=== PATIENT | male | born 1955 | race African-American/Black ===

== ENCOUNTER 2017-06-13 18:48 | Emergency (ER) | payer BC ==
[~2017-06-13 18:48] MED LIST: ISOVUE-370 76%-LOCM 1 ML ONE; Iopamidol 370 76% 50 ML VIAL FS ONE
[2017-06-13] MEDS ORDERED: Benzocaine 20% Spray 60 ML CAN ONE (19:31)
[2017-06-13 20:09] LABS: #Basophils 0.1 thou/uL (0.0-0.2); #Eosinphils 0.2 thou/uL (0.0-0.7); #Lymphocytes 1.4 thou/uL (1.20-3.40); #Monocytes 0.4 thou/uL (0.11-0.59); %Basophils 1.1 % (0.0-1.0); %Eosinophils 4.9 % (0.0-10.0); %Lymphocytes 26.7 % (21.0-51.0); %Monocytes 8.6 % (0.0-10.0); Hematocrit 26.7 % (42.0-52.0); Mean Platelet Volume 6.9 fL (7.4-10.4); Red Blood Cell (RBC) Count 3.06 mill/uL (4.70-6.10); White Blood Cell (WBC) Count 5.1 thou/uL (4.8-10.8)
[2017-06-13 20:16] LABS: Prothrombin Time 15.1 SEC (12.0-14.7)
[2017-06-13 20:17] LABS: PTT 50.1 SEC (22.9-36.1)
[2017-06-13 20:30] LABS: ALT (SGPT) 11 U/L (8-55); AST (SGOT) 17 U/L (5-34); Alkaline Phosphatase 71 U/L (40-150); Anion Gap 9 mmol/L (10-20); BUN (Urea Nitrogen) 16 mg/dL (8.4-25.7); Bilirubin, Total 0.6 mg/dL (0.2-1.2); Calc. Creatinine Clearance 0 mL/min (70-130); Calcium 8.9 mg/dL (7.8-10.44); Carbon Dioxide 27 mmol/L (23-31); Chloride 103 mmol/L (98-107); Estimated GFR-MDRD 67; Globulin 2.8 g/dL (2.4-3.5); Lipase 41 U/L (8-78); Protein, Total 6.7 g/dL (5.8-8.1)
--- NOTE | 2017-06-13 22:48 | CT ---
CT OF THE ABDOMEN AND PELVIS 06/13/17 PROVIDED CLINICAL HISTORY: Abdominal pain. FINDINGS: Comparison is made with the CT examination dated 10/22/16. The visualized lung bases are free of significant opacity. There has been interval development of free intraperitoneal fluid. There are multiple peritoneal base d soft tissue masses now present throughout the upper abdomen. These most conspicuously involve the r ight pericolic gutter. The liver, spleen, pancreas, kidneys, and adrenal glands demonstrate an unchanged CT appearance. There is no evidence for bowel obstruction. There are several mildly enlarged epicardial lymph nodes which appear new as compared to the prior st udy. The osseous structures demonstrate no concerning osteoblastic or osteolytic lesions. IMPRESSION: Interval development of ascites and multiple peritoneal based soft tissue masses compatible with alexander ges of peritoneal carcinomatosis. POS: [facility]
== END 2017-06-14 00:55 | disposition home or self-care (01) ==
LOC: ERS 18:48
DX: R18.8 Other ascites (principal); Z87.891 Personal history of nicotine dependence
CPT/HCPCS: 74177; 80053; 82274; 83690; 85025; 85610; 85730; 86850; 86900; 86901

== ENCOUNTER 2017-06-25 18:42 | Inpatient (IN) | payer BC ==
[~2017-06-25 18:42] MED LIST changes: -Iopamidol 370 76% 50 ML VIAL FS ONE
--- NOTE | 2017-06-25 21:57 | RAD ---
EXAM: ONE VIEW ABDOMEN 06/25/17 HISTORY: Nasogastric tube placement. COMPARISON: 06/25/17 at 3:33 p.m. FINDINGS: One view abdomen demonstrates a nasogastric tube with the distal tip in the left upper quadrant. Air fluid level in the stomach is noted. Air filled loops of small bowel are identified. IMPRESSION: Nasogastric tube as above. POS: [facility]
[2017-06-25] MEDS ORDERED: Ondansetron ODT 4 MG TAB SL PRN (23:06)
[2017-06-25] MEDS ORDERED: Ondansetron HCl/PF 4 MG/2 ML Vial IVP PRN ×2 (23:06→23:23)
--- NOTE | 2017-06-25 23:11 | CT ---
EXAM ABDOMEN CT WITH CONTRAST PELVIC CT WITH CONTRAST 06/25/17 HISTORY: Small bowel obstruction. Patient has a history of metastatic cancer. COMPARISON: 06/23/17 TECHNIQUE: Abdomen and pelvic CT are performed with IV contrast. Enteric contrast was not administered. Coronal reformatted images are submitted for interpretation. FINDINGS: ABDOMEN CT: Chronic changes in the lung bases. Heart size is normal. No pericardial effusion. The descending thor acic aorta and abdominal aorta have a normal caliber. No periaortic fat stranding. Intra and extrahepatic portal vein is patent. Symmetric attenuation of the psoas muscles. Stable indeterminate hypodensities near the hepatic dome. Spleen, pancreas and adrenal glands are unr emarkable. Redemonstration of a left renal cyst. Symmetric enhancement of the kidneys. Bilaterally, n o obstructive uropathy. No gastrohepatic, retrocrural or periportal lymphadenopathy. There is worsening intra-abdominal ascites, predominantly in the left upper quadrant and perisplenic in location. Redemonstration of multiple peritoneal masses predominantly in the left hemiabdomen, wor risome for peritoneal seeding. There are multiple masses noted throughout the abdominal mesentery. Th ere appear to be new mesenteric masses in the left hemiabdomen. Limited evaluation of the alimentary canal due to the absence of oral contrast. Multiple fluid filled mildly distended small bowel loops are identified. The majority of the colon appears to have been grimaldo rgically removed. There is anatomic suture chain in the right lower quadrant. As stated above, there are multiple fluid filled loops of small bowel. The transition segment appears to be in the region of the anastomotic suture chain. Early/partial obstructive process is favored. Varicosities, nonspecific are noted just inferior to the head of the pancreas. Significance of these varicosities is uncertain. PELVIC CT: There is free fluid in the pelvis. No mass, lymphadenopathy or free air. The urinary bladder is unremarkable. Areas of peritoneal seeding are noted in the midline of the pelv is. IMPRESSION: 1. Interval increased ascites. 2. Interval increased peritoneal seeding in the abdomen mesentery. Seeding due to mesenteric met astases. 3. Early/partial obstructive process. The transition segment is difficult to appreciate but is p resumed to be in the right hemiabdomen at the level of the suture/surgical anastomosis. POS: [facility]
[2017-06-25] MEDS ORDERED: hydrALAZINE 20 MG/ML VIAL SLOW IVP PRN (23:23)
[2017-06-25] MEDS ORDERED: Dextrose 5% in Water 1,000 ML IV PRN (23:23)
[2017-06-25] MEDS ORDERED: Lorazepam 2 MG/ML VIAL SLOW IVP PRN (23:23)
[2017-06-25] MEDS ORDERED: HumaLOG 300 UNITS/3 ML VIAL SC PRN ×2 (23:23)
[2017-06-25] MEDS ORDERED: Acetaminophen 650 MG Suppository PR PRN (23:23)
[2017-06-25] MEDS ORDERED: Dextrose 50% Abboject 50 ML SYRINGE SLOW IVP PRN (23:23)
[2017-06-26] MEDS: D5 0.9% NS w/ 20 mEq KCl 1,000 ML IV SCH ×3 (00:26→18:50)
[2017-06-26] MEDS: Sodium Chloride 0.9% 1,000 ML IV SCH ×2 (00:33→05:46)
--- NOTE | 2017-06-26 01:05 | HP ---
PRIMARY CARE PHYSICIAN: Sadia Olivares MD CHIEF COMPLAINT: Abdominal distention and vomiting. HISTORY OF PRESENT ILLNESS: Mr. Guerra is a pleasant 61-year-old gentleman who has a history of di abetes mellitus as well as colon cancer, status post partial colectomy. The patient was in his usual state of health he says until around April when he felt like something tore, loosen his abdomen, then after that he started having some bloating. He went in to see his primary care physician who se nt him to have a CT scan of the abdomen. He says he reports that the CT scan showed some obstruction , however, it is unclear what happened after this, he says he tried to wait it out and get through holidays, it is unclear if he was recommended to be hospitalized. He says he was trying to wait it out, but his symptoms got progressively worse and he began having more abdominal distention. He got to the point where he vomited this morning. His abdomen was extremely tight and he was having diffi culty breathing as a result of this and as a result, he came to the ER and again was found to have a small-bowel obstruction. He was seen at the ER in [place] and then transferred to our facility for further evaluation. The patient says his last bowel movement was yesterday, he says it was small er than usual. The stool was formed, but there only like a little bit. He says he denies having any blood in the stool, but earlier, his stool was dark. He vomited once, but there was no hematemesis. He has had some chills, but no fever. REVIEW OF SYSTEMS: Constitutional: He has had subjective chills, but no fever, no night sweats, no weight loss. HEENT: No headaches, no dizziness, no visual changes, no sore throat, rhinorrhea, neck pain, no adenopathy. Pulmonary: No hemoptysis, no cough, no wheezing. Cardiovascular: He denies any chest pain, no shortness of breath, no PND, no orthopnea. Gastrointestinal: As the history of p resent illness. Genitourinary: No urinary frequency, hematuria, no hesitancy. Neurologic: No foca l weakness, numbness, no seizures. Psychiatric: No symptoms of anxiety or depression. Skin and Int egument: No skin changes. No rash. PAST MEDICAL HISTORY: Significant for diabetes mellitus type 2, gastroesophageal reflux disease, chr onic kidney disease, colon cancer, pulmonary embolism. PAST SURGICAL HISTORY: He has had an appendectomy in 2010, as well as a partial colectomy in 02/2016 . ALLERGIES: XARELTO which causes a rash. SOCIAL HISTORY: He is . He is a nonsmoker. He quit smoking about 10 years ago. Denies any alcohol use. CODE STATUS: FULL CODE. FAMILY HISTORY: No history of any inheritable diseases. CURRENT MEDICATIONS: Include Eliquis 5 mg twice a day. PHYSICAL EXAMINATION: GENERAL: He is alert and oriented. He appears to be in no acute distress. VITAL SIGNS: His blood pressure was 150/97, heart rate 109, respiratory rate of 20, temperature is 9 8.2. HEENT: His pupils are equal, round, and reactive. Extraocular muscles are intact. His sclerae are anicteric. Throat, no erythema, no exudates. NECK: No adenopathy, no bruits. LUNGS: Clear. There is no wheezing, no rales. CARDIOVASCULAR: He has a normal S1, S2. There is no S3 or S4. No murmurs, clicks, or rubs. ABDOMEN: Distended, slightly tense. He has some diffuse tenderness. There is no rebound, no guardi ng. EXTREMITIES: There is no lower extremity edema. NEUROLOGICALLY: The exam is nonfocal. LABORATORY FINDINGS: White blood cell count is 9.2, hemoglobin is 10.7, hematocrit is 35.2, platelet count is 355. Sodium 138, potassium 4.3, chloride is 101, CO2 is 21, BUN is 17, creatinine 1.4, glu cose is 163. ASSESSMENT AND PLAN: 1. This is a pleasant 61-year-old gentleman who presents to the emergency room with abdominal disten tion and vomiting. It is reported that the CT scan was consistent with a small-bowel obstruction. I am still awaiting the final reading on that. He is being admitted. General Surgery has already bee n consulted. He will be left n.p.o. and he has an NG placed to low intermittent suction. Given his history of pulmonary embolus, we will place him on Lovenox full dose in lieu of the Eliquis. 2. For diabetes mellitus, the patient says that ever since he started chemotherapy, he no longer req uires medication for diabetes. Therefore, we will place him on sliding scale insulin only and we adin l also place him on maintenance IV fluids.
[2017-06-26 01:08] VITALS: BMI 28.8
[2017-06-26 06:41] LABS: Anion Gap 14 mmol/L (10-20); BUN (Urea Nitrogen) 18 mg/dL (8.4-25.7); Calc. Creatinine Clearance 69 mL/min (70-130); Calcium 9.4 mg/dL (7.8-10.44); Carbon Dioxide 27 mmol/L (23-31); Chloride 105 mmol/L (98-107); Estimated GFR-MDRD 55; Glucose 133 mg/dL (80-115); Potassium 4.6 mmol/L (3.5-5.1); Sodium 141 mmol/L (136-145)
[2017-06-26 07:59] LABS: Band 11 % (5-11); Eosinophils 6 % (0-10); Hemoglobin 9.3 g/dL (14.0-18.0); Hypochromia SLIGHT = 6-15 cells (100X) (0-5/hpf); Lymphocytes 16 % (21-51); MDiff Complete? YES; Mean Corpuscular HGB CONC 31.4 g/dL (32.0-36.0); Mean Corpuscular Hemoglobin 26.8 pg (27.0-31.0); Mean Corpuscular Volume 85.1 fl (80.0-94.0); Mean Platelet Volume 7.1 fL (7.4-10.4); Monocytes 10 % (0-10); Neutrophil 57 % (42-75); PLT Morphology Comment Appears Adequate; Platelet Count 316 thou/uL (130-400); Polychromasia MODERATE = 3-4 cells (100X) (0-2/hpf); RBC Distribution Width 16.6 % (11.5-14.5); Red Blood Cell (RBC) Count 3.49 mill/uL (4.70-6.10)
[2017-06-26] MEDS ORDERED: Enoxaparin Sodium 60 MG/0.6 ML SYRINGE SC SCH (09:00)
[2017-06-26] MEDS: Famotidine/PF 20 mg/2ml Vial SLOW IVP SCH ×2 (09:48→21:51)
[2017-06-26] MEDS: Enoxaparin Sodium 100 MG/ML SYRINGE SC SCH ×2 (09:48→21:51)
[2017-06-26] MEDS ORDERED: MD-Gastroview 120 ML BOT ONE (12:00)
--- NOTE | 2017-06-26 15:57 | CON ---
DATE OF CONSULTATION: 06/26/2017 REQUESTING PHYSICIAN: Jeremy Bishop M.D. ATTENDING SURGEON: Dr. Valle. REASON FOR CONSULTATION: Suspected small-bowel obstruction. HISTORY OF PRESENT ILLNESS: The patient is a 61-year-old -Spanish man with a prior history o f diabetes and colon cancer. The patient has undergone a laparoscopic right colectomy and then was f ound to have cancer metastasized to the mesentery of the small bowel which he underwent laparoscopic biopsy of omental mass in April [address] Benitez. The patient since then has had intermittent episodes of nausea and vomiting which usually were very self-limiting though this time the patient no coco that in April he started to have more left-sided lower abdominal pain that had gradually worse janes and became more frequent. The patient presented to the Emergency Department in [place] complain ing of nausea, vomiting, and severe abdominal pain. The patient underwent evaluation and examination and the CTs showed: 1. Interval increase in ascites. 2. Interval increased peritoneal seeding in the abdomen mesentery. Seeding due to mesenteric metast asis. 3. Early/partial obstructive process. The transition segment is difficult to appreciate, but is pre sumed to be in the right mak-abdomen at the level of the suture/surgical anastomosis. The patient w as subsequently transferred to our facility for surgical evaluation and admission by our medicine edmundo celestin. The patient has had an NG tube placed in the emergency department and states that this relieved s ignificant amount of his nausea and his pain. The patient states his last bowel movement was yesterd ay and his last episode of flatus was also yesterday. The patient had emesis yesterday, but has sinc e resolved. Again, the NG tube appears to have helped him significantly. Though, today he notes sarah t he still has not had any flatus. The patient denies documented fever, but admits to episodes of ch ills, denies weight loss. The patient also denies hematemesis, dark tarry stools, or blood per rectu m. CURRENT MEDICATIONS: Eliquis 5 mg twice a day. ALLERGIES: XARELTO, which he reports causes a rash. PAST SURGICAL HISTORY: Appendectomy, laparoscopic right hemicolectomy, laparoscopic biopsy of omenta l mass, and tunneled central line subcutaneous port/MediPort placement. PAST MEDICAL HISTORY: Significant for type 2 diabetes, gastroesophageal reflux disease, chronic kidn ey disease, colon cancer, and history of pulmonary embolism. REVIEW OF SYSTEMS: Ten point review of systems was negative, unless otherwise stated. SOCIAL HISTORY: The patient is . Quit smoking 10-15 years ago. Denies drug and alcohol use. 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 PHYSICAL EXAMINATION: VITAL SIGNS: Temperature is 98.3, heart rate 105, blood pressure 125/83, respirations 16. HEENT: Unremarkable. NECK: Nontender, no lymph nodes were noted. Trachea is midline. No JVD. CHEST: Clear to auscultation bilaterally with good inspiratory and expiratory effort. ABDOMEN: Soft with mild distention. No peritoneal signs. Bowel sounds are absent. Pelvis is stabl e. EXTREMITIES: Neurovascularly intact x4. No peripheral edema is noted. NEUROLOGIC: The patient is alert and oriented x3. Prince coma scale is 15. LABORATORY DATA: White blood cell count 4.1, hemoglobin 9.3, hematocrit 29.7, platelets 316. Sodium 141, potassium 4.6, chloride 105, CO2 of 27, BUN 18, creatinine 1.54, glucose 133. RADIOGRAPHIC REPORTS: CT of the abdomen and pelvis with IV contrast shows: 1. Interval increase in ascites. 2. Interval increase in peritoneal seeding in the abdomen mesentery. Seeding due to mesenteric meta stasis. 3. Early/partial obstructive process. The transition segment is difficult to appreciate, but is pre sumed to be in the right mak-abdomen at the level of the suture/surgical anastomosis. ASSESSMENT AND PLAN: 1. Possible small-bowel obstruction. We will discuss further evaluation of this with possible small bowel follow through due to the fact that the patient's CT scan was without enteric contrast. 2. Continue nasogastric tube with low intermittent wall suction. 3. IV hydration. 4. Pain control. 5. Medical management per the primary. This evaluation, examination, laboratory, and radiographic findings were discussed with Dr. Valle and he will evaluate the patient and decide on the final plan.
--- NOTE | 2017-06-26 17:48 | CON ---
DATE OF CONSULTATION: 06/26/2017 REASON FOR CONSULTATION: Colon cancer. HISTORY OF PRESENT ILLNESS: Mr. 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 He underwent 12 cycles of FOLFOX and was in remission. 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 He has been on anticoagulation since that time. He was last seen in our clinic on 04/2017 and was doing well. Over the last few days, he began to have abdominal distention and pain and presented to the emergency room for evaluation. A CT scan showed a possible obstruction. There was increased tense ascites. There was also some peritoneal seeding in the abdominal mesentery, which was concerning for metastasi s. Patient had an NG tube placed and was transferred to this facility for evaluation. Dr. Valle has seen the patient. He does complain of vomiting, significant burping. However, his last bowel movem ent was the day before yesterday. He states his abdomen has become increasingly distended over the p ast few weeks. He has noted weight gain of unknown amount. PAST MEDICAL HISTORY: 1. Stage IV adenocarcinoma of the cecum. 2. 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 3. Type 2 diabetes. 4. Chronic kidney disease. PAST SURGICAL HISTORY: 1. Appendectomy. 2. Colectomy. ALLERGIES: Xarelto. HOME MEDICATIONS: Eliquis 5 mg b.i.d. FAMILY HISTORY: Noncontributory. SOCIAL HISTORY: He is and has 3 children. Former smoker. No alcohol or illicit drug use. REVIEW OF SYSTEMS: CONSTITUTIONAL: Denies fever, chills, night sweats. Positive for recent weight gain. EYES: No blurred or double vision. ENT: No pain, hoarseness, sore throat, or dysphagia. CARDIOVASCULAR: No chest pain, palpitations, or syncope. RESPIRATORY: Positive for shortness of breath, no dyspnea on exertion. GASTROINTESTINAL: Positive for nausea, vomiting, abdominal pain, and distention. GENITOURINARY: No dysuria or hematuria. MUSCULOSKELETAL: No joint or back pain. SKIN: No rash or pruritus. HEMATOLOGIC: No petechia, no bleeding, bruising or clotting. NEUROLOGIC: Denies weakness, headache, numbness, tingling, or seizure activity. PSYCHIATRIC: No anxiety or depression. PHYSICAL EXAMINATION: VITAL SIGNS: Temperature is 96.1, pulse is 115, respiratory rate 16, BP is 120/84, he is 97% on room air. GENERAL: Well-developed, well-nourished male in no acute distress. HEENT: Normocephalic, atraumatic. Pupils equal and reactive to light. NECK: Supple. HEART: Regular rate and rhythm. He is tachycardic. LUNGS: Clear. ABDOMEN: Distended, nontender. EXTREMITIES: No clubbing, cyanosis, or edema. SKIN: No rash. HEMATOLOGIC: No petechia or purpura. NEUROLOGICAL: Nonfocal. PSYCHIATRIC: The patient is alert and oriented and appropriate. PERTINENT LABORATORY DATA AND X-RAYS: Current WBCs are 4.0, hemoglobin 9.3, hematocrit 29.7, platele t count 316,000. He has got 57% neutrophils, 11% bands, 16% lymphocytes. Sodium is 141, potassium 4 .6, chloride 105, CO2 is 27, BUN is 18, creatinine 1.54, calcium is 9.4. Radiology per HPI. IMPRESSION: 1. Stage IV adenocarcinoma of the cecum, now with peritoneal carcinomatosis. 2. Possible obstruction. 3. History of venous thrombosis on lifelong anticoagulation. DISCUSSION: Dr. Valle has seen the patient. The NG tube has been removed and the patient had a jabier l movement. He will follow up with Dr. Mujica in the outpatient setting to discuss possible treatm ent options. We will check a CEA. The patient can be discharged when stable from our perspective an d see us next week in the clinic. Thank you for the consult.
--- NOTE | 2017-06-26 21:09 | PDOC.PN ---
- Subjective Encounter Start Date: 06/26/17 Encounter Start Time: 13:00 Patient seen and examined. Abd pain improving. No BM. No overnight events - Objective Resuscitation Status: Resuscitation Status FULL:Full Resuscitation Vital Signs & Weight: Vital Signs (12 hours) Temp Pulse Resp BP Pulse Ox 06/26/17 19:41 98.5 F 96 18 118/81 96 06/26/17 16:19 96.1 F L 115 H 16 120/84 90 L 06/26/17 12:24 98.1 F 102 H 16 131/86 97 06/26/17 09:28 98.3 F 105 H 16 125/83 95 Weight Weight 218 lb 4.122 oz I&O: 06/25/17 06/26/17 06/27/17 06:59 06:59 06:59 Intake Total 700 1590 Output Total 1350 400 Balance -650 1190 Result Diagrams: 06/27/17 08:31 06/27/17 08:31 Additional Labs: Accuchecks 06/26/17 06/26/17 06/26/17 15:45 10:18 05:53 POC Glucose 126 H 136 H 129 H 06/26/17 00:53 POC Glucose 143 H Radiology Reviewed by me: Yes (CT abd - reviewed) Phys Exam - Physical Examination Constitutional: NAD NG tube + Respiratory: no wheezing, no rales, no rhonchi Symmetrical Cardiovascular: RRR, no rub no heaves/pulsations Gastrointestinal: soft, non-tender, positive bowel sounds Musculoskeletal: no edema Neurological: non-focal, moves all 4 limbs Psychiatric: A&O x 3 Dx/Plan - Plan DVT proph w/SCDs IMPRESSION: 1. SBO 2. h/o Colon Cancer 3. CKD 3 4. DM 2 5. GERD 6. h/p PE on Chronic anticoagulation PLAN: * Eliquis on hold - Pt on Lovenox * Await Gen surg input * Consult Oncology * AM labs * Cont IVF * Cont current meds as below Review of Systems - Review of Systems Respiratory: negative: Cough, Dry, Shortness of Breath, Hemoptysis, SOB with Excertion, Pleuritic Pain, Sputum, Wheezing Cardiovascular: negative: chest pain, palpitations, orthopnea, paroxysmal nocturnal dyspnea, edema, light headedness - Medications/Allergies Allergies/Adverse Reactions: Allergies Allergy/AdvReac Type Severity Reaction Status Date / Time hydroxyzine Allergy Verified 06/26/17 05:37 Medications: Current Medications Acetaminophen (Tylenol) 650 mg NV Q4H PRN PRN Reason: Headache/Fever or Pain Dextrose/Water (Dextrose 50%) 25 gm SLOW IVP PRN PRN PRN Reason: Hypoglycemia Enoxaparin Sodium (Lovenox) 100 mg SC 0900,2100 [facility] Last Admin: 06/26/17 09:48 Dose: 100 mg Famotidine (Pepcid) 20 mg SLOW IVP Q12HR [facility] Last Admin: 06/26/17 09:48 Dose: 20 mg Glucagon (Glucagon) 1 mg IM PRN PRN PRN Reason: Hypoglycemia Hydralazine HCl (Apresoline) 10 mg SLOW IVP Q4H PRN PRN Reason: Systolic BP > 180 Potassium Chloride/Dextrose/Sod Cl (D5 0.9% Ns W/ 20 Meq Kcl) 1,000 mls @ 100 mls/hr IV .Q10H [facility] Last Admin: 06/26/17 18:50 Dose: 1,000 mls Dextrose/Water (D5w) 1,000 mls @ 0 mls/hr IV .Q0M PRN; As Directed PRN Reason: Hypoglycemia Influenza Virus Vaccine (Fluzone Quad [id number] Syringe) 0.5 ml IM .ONCE ONE Stop: 06/27/17 09:01 Insulin Human Lispro (Humalog) 0 units SC .MILD SLIDING SCALE PRN PRN Reason: Mild Correctional Scale Insulin Human Lispro (Humalog) 0 units SC .BEDTIME SLIDING SC PRN PRN Reason: Bedtime Correctional Scale Lorazepam (Ativan) 0.5 mg SLOW IVP Q4H PRN PRN Reason: Anxiety/Agitation Ondansetron HCl (Zofran) 4 mg IVP Q6H PRN PRN Reason: Nausea/Vomiting Sodium Chloride (Flush - Normal Saline) 10 ml IVF Q12HR [facility] Last Admin: 06/26/17 19:56 Dose: Not Given Sodium Chloride (Flush - Normal Saline) 10 ml IVF PRN PRN PRN Reason: Saline Flush
--- NOTE | 2017-06-26 21:36 | RAD ---
EXAM: GASTROGRAFIN SMALL BOWEL 06/26/17 HISTORY: Evaluate for small bowel obstruction. COMPARISON: None. FINDINGS: Initial fourdrinier operator radiograph demonstrates air filled loops of nondistended small bowel. Gastrografin opacifies multiple normal caliber and slight prominent small bowel loops. On the three h our image, there is contrast opacifying the colon. No evidence of high grade obstruction. IMPRESSION: No evidence of high grade obstruction. POS: [facility]
--- NOTE | 2017-06-26 23:04 | PRG ---
DATE OF SERVICE: 06/26/2017 SUBJECTIVE: Julianne Guerra is a 61-year-old male, surgical consult for partial small-bowel obstruction. The patient had a bowel movement earlier today and was passing gas. His diet was advanced to clear liquid earlier this evening. Upon my evaluation, the patient states that he has had no further vomiting and tolerating water at this time. OBJECTIVE: VITAL SIGNS: Reviewed and stable. The patient is afebrile. GENERAL: Well-developed male, resting in bed in no acute distress. PULMONARY: Breathing nonlabored. GASTROINTESTINAL: Abdomen is soft, nontender. ASSESSMENT: As documented in consultation note. PLAN: Continue care as ordered, monitor diet tolerance. MTDD
[2017-06-27] MEDS: D5 0.9% NS w/ 20 mEq KCl 1,000 ML IV SCH (03:56)
[2017-06-27 08:40] LABS: #Eosinphils 0.1 thou/uL (0.0-0.7); #Lymphocytes 1.2 thou/uL (1.20-3.40); #Monocytes 0.5 thou/uL (0.11-0.59); #Neutrophils 3.4 thou/uL (1.40-6.50); %Basophils 0.4 % (0.0-1.0); %Eosinophils 2.5 % (0.0-10.0); %Lymphocytes 22.5 % (21.0-51.0); %Monocytes 9.1 % (0.0-10.0); %Neutrophils 65.5 % (42.0-75.0); Hemoglobin 9.2 g/dL (14.0-18.0); Mean Corpuscular Hemoglobin 26.5 pg (27.0-31.0); Mean Corpuscular Volume 85.7 fl (80.0-94.0); Mean Platelet Volume 6.4 fL (7.4-10.4); Platelet Count 256 thou/uL (130-400); RBC Distribution Width 16.7 % (11.5-14.5); Red Blood Cell (RBC) Count 3.46 mill/uL (4.70-6.10); White Blood Cell (WBC) Count 5.2 thou/uL (4.8-10.8)
[2017-06-27] MEDS ORDERED: Famotidine 40 MG/4 ML VIAL IVPB SCH (09:00)
[2017-06-27] MEDS ORDERED: FLU VACC QS2017-18 36 mo. & older 0.5 ML SYRINGE IM ONE (09:00)
[2017-06-27 09:02] LABS: ALT (SGPT) 8 U/L (8-55); AST (SGOT) 13 U/L (5-34); Albumin 3.8 g/dL (3.4-4.8); Alkaline Phosphatase 74 U/L (40-150); Anion Gap 12 mmol/L (10-20); BUN (Urea Nitrogen) 16 mg/dL (8.4-25.7); Bilirubin, Total 0.7 mg/dL (0.2-1.2); Calc. Creatinine Clearance 63 mL/min (70-130); Calcium 9.4 mg/dL (7.8-10.44); Carbon Dioxide 23 mmol/L (23-31); Chloride 108 mmol/L (98-107); Estimated GFR-MDRD 50; Globulin 3.6 g/dL (2.4-3.5); Glucose 130 mg/dL (80-115); Magnesium 2.5 mg/dL (1.6-2.6); Phosphorus 2.3 mg/dL (2.3-4.7); Potassium 4.1 mmol/L (3.5-5.1); Protein, Total 7.4 g/dL (5.8-8.1); Sodium 139 mmol/L (136-145)
[2017-06-27] MEDS: Famotidine/PF 20 mg/2ml Vial SLOW IVP SCH (09:40)
--- NOTE | 2017-06-27 12:07 | PRG ---
DATE OF SERVICE: 06/27/2017 The patient is a patient that we were seeing in consultation for a possible small-bowel obstruction. The patient yesterday reported having a bowel movement and passing gas. His small bowel follow thro ugh showed no evidence of high grade obstruction. Overnight, the patient reports having 4 more bowel movements. At this time, there is no surgical intervention required and we will sign off.
--- NOTE | 2017-06-27 14:49 | DIS ---
DATE OF DISCHARGE: 06/27/2017 DISCHARGE DISPOSITION: Home. FOLLOWUP: 1. Follow up with primary care physician, Dr. Olivares in 1 week. 2. Follow up with Oncology, Dr. Mujica next week. INPATIENT CONSULTANTS: General Surgery, Dr. Valle and Oncology, Dr. Mujica. BRIEF HOSPITAL COURSE: The patient is a 61-year-old male with diabetes mellitus type 2 and colon can cer, status post partial colectomy, who presented to the emergency room with abdominal distention sarkis ng with vomiting. A CT scan of the abdomen done in the emergency room was consistent with small-jabier l obstruction. He was monitored on the surgical floor. The patient was evaluated by General Surgery , Dr. Valle. Repeat small-bowel x-ray was negative for obstruction. The patient had bowel movement. NG tube was later discontinued. The patient has been tolerating diet for the last 24 hours. He martines s been cleared by consultants for discharge. He was also evaluated by Oncology due to mesenteric met astases. FINAL DIAGNOSES: 1. Small-bowel obstruction, resolved. 2. History of venous thrombosis on anticoagulation lifelong. Please note that Eliquis was changed t o Lovenox during this hospital stay. 3. Stage IV adenocarcinoma of the cecum. 4. Peritoneal carcinomatosis with increasing ascites. 5. Diabetes mellitus type 2, diet controlled. 6. Chronic anemia. 7. Chronic kidney disease stage 3. Plan of care was discussed with the patient in detail. He stated understanding. Total time coordinating the discharge of this patient was 33 minutes.
[2017-06-27 15:48] VITALS: BP 147/76; TEMP 97.7
[2017-06-27] MEDS ORDERED: Apixaban 5 MG TAB PO SCH (21:00)
== END 2017-06-27 16:35 | disposition home or self-care (01) | DRG 389 ==
LOC: ERS 18:42 → SJJU 21:03
PROVIDERS: ADMIT Internal Medicine; ATTEND Internal Medicine
DX: K56.600 Partial intestinal obstruction, unspecified as to cause (principal); C78.6 Secondary malignant neoplasm of retroperitoneum and peritoneum; E11.22 Type 2 diabetes mellitus with diabetic chronic kidney disease; N18.3 Chronic kidney disease, stage 3 (moderate); R18.8 Other ascites; D64.9 Anemia, unspecified; Z90.49 Acquired absence of other specified parts of digestive tract; Z86.718 Personal history of other venous thrombosis and embolism; Z79.01 Long term (current) use of anticoagulants; Z85.038 Personal history of other malignant neoplasm of large intestine
CPT/HCPCS: 36415; 36416; 74018; 74177; 74250; 80048; 80053; 82378; 83735; 84100; 85025; J1650; S0028

== ENCOUNTER 2017-08-29 09:42 | Outpatient (CLI) | payer BC ==
[2017-08-29] MEDS ORDERED: Iopamidol 370 76% 100 ML VIAL ONE (10:44)
== END 2017-08-29 09:43 | disposition home or self-care (01) ==
LOC: BICCT 09:42
PROVIDERS: ATTEND Internal Medicine Medical Oncology
DX: C18.9 Malignant neoplasm of colon, unspecified (principal)
CPT/HCPCS: 74177

== ENCOUNTER 2018-01-17 09:48 | Outpatient (CLI) | payer BC ==
[2018-01-17] MEDS ORDERED: ISOVUE-370 76%-LOCM 1 ML ONE (11:32)
== END 2018-01-17 09:49 | disposition home or self-care (01) ==
LOC: BICCT 09:48
PROVIDERS: ATTEND Internal Medicine Medical Oncology
DX: C18.0 Malignant neoplasm of cecum (principal); C78.6 Secondary malignant neoplasm of retroperitoneum and peritoneum
CPT/HCPCS: 74177

== ENCOUNTER 2018-03-03 09:21 | Inpatient (IN) | payer BC, OTHER, SELFPAY ==
[2018-03-03 09:48] LABS: #Basophils 0.1 thou/uL (0.0-0.2); #Eosinphils 0.1 thou/uL (0.0-0.7); #Lymphocytes 1.4 thou/uL (1.20-3.40); #Monocytes 0.6 thou/uL (0.11-0.59); #Neutrophils 4.2 thou/uL (1.40-6.50); %Basophils 1.2 % (0.0-1.0); %Eosinophils 1.4 % (0.0-10.0); %Lymphocytes 22.5 % (21.0-51.0); %Monocytes 9.1 % (0.0-10.0); %Neutrophils 65.8 % (42.0-75.0); Hemoglobin 13.8 g/dL (14.0-18.0); Mean Corpuscular HGB CONC 31.5 g/dL (32.0-36.0); Mean Corpuscular Hemoglobin 28.1 pg (27.0-31.0); Mean Corpuscular Volume 89.1 fL (78.0-98.0); Platelet Count 280 thou/uL (130-400); RBC Distribution Width 14.5 % (11.5-14.5); White Blood Cell (WBC) Count 6.4 thou/uL (4.8-10.8)
[2018-03-03 09:58] LABS: Bilirubin Small (Negative); Blood, Urine Trace (Negative); Clarity CLOUDY (Clear); Glucose, Urine (Dipstick) Negative (Negative); Leukocyte Moderate (Negative); Nitrite Negative (Negative); Protein, Urine (Dipstick) Trace mg/dL (Neg-Trace); Specific Gravity, Urine 1.023 (1.002-1.036)
[2018-03-03 10:00] LABS: Bacteria/HPF None Seen HPF (None Seen); WBC/HPF 21-50 HPF (0-3)
[2018-03-03 10:02] LABS: Pathc Cast-AUWi Flag 3.63 (0-2.49)
[2018-03-03 10:09] LABS: ALT (SGPT) 12 U/L (8-55); AST (SGOT) 20 U/L (5-34); Alkaline Phosphatase 100 U/L (40-150); Anion Gap 17 mmol/L (10-20); BUN (Urea Nitrogen) 23 mg/dL (8.4-25.7); Bilirubin, Total 1.3 mg/dL (0.2-1.2); Calc. Creatinine Clearance 0 mL/min (70-130); Calcium 10.6 mg/dL (7.8-10.44); Carbon Dioxide 27 mmol/L (23-31); Chloride 97 mmol/L (98-107); Estimated GFR-MDRD 53; Globulin 4.3 g/dL (2.4-3.5); Glucose 127 mg/dL (80-115); Lipase 24 U/L (8-78); Potassium 4.1 mmol/L (3.5-5.1); Protein, Total 9.3 g/dL (5.8-8.1); Sodium 137 mmol/L (136-145)
[2018-03-03 10:30] LABS: Hyaline Casts/LPF 7-10 HYALINE CAST LPF (0-3 Hyaline); Other Casts/LPF 4-6 COARSE GRAN LPF (0-3 Hyaline)
[2018-03-03 10:31] LABS: Transitional Epithelial 0-3 HPF (0-3)
--- NOTE | 2018-03-03 15:52 | CT ---
ABDOMEN AND PELVIC CT SCAN WITH IV CONTRAST: Date: 03/03/18 HISTORY: 62-year-old male with history of abdominal pain. History of colon cancer and colon resection. Abdomin al distention and worsening abdominal pain. COMPARISON: 06/25/17. FINDINGS: Minimal linear stranding in the lung bases. Multiple small but abnormal lymph nodes in the right and left pericardial fat. Matted mass in the right side of the abdomen measuring approximately 2.1 x 8.3 cm in size, which could conceivably represent matted adenopathy or may represent peritoneal spread of carcinoma. There are some other nodular areas throughout the omentum, including the left upper quadr ant, which probably represents peritoneal or omental metastasis. Markedly abnormally dilated mid and proximal small bowel with distention of the stomach, with very decompressed distal ileum and colon, e vidence for a high grade small bowel obstruction. I would favor the point of obstruction to be in the right lateral abdomen, possibly in relationship to the neoplastic disease. Even though the colon is mostly decompressed, there is some solid fecal material in a minimally dilated and somewhat distended rectum. There appears to be some trace intraperitoneal fluid, but there is marked improvement in the previously noted extensive ascites seen on the 06/25/17 study. The small bowel is much more dilated on today's study than on the older study. Left renal cyst, stable. Fat-containing right inguinal reginaldo ia. IMPRESSION: Marked small bowel obstruction. Evidence for multiple peritoneal soft tissue masses throughout the ab domen and pelvis, but most prominent in the right lateral abdomen, probably representing peritoneal o r omental metastasis. Abnormal lymph nodes in the right and left pericardial fat. Decompressed distal small bowel and colon, except for dilated fecal-filled rectum. Trace ascites, marked improvement in ascites amount from the 06/25/17 study. POS: [facility]
[2018-03-03] MEDS ORDERED: Benzocaine 20% Spray 60 ML CAN ONE (17:10)
[2018-03-03] MEDS ORDERED: Morphine 4 MG/ML VIAL ONE (17:11)
[2018-03-03] MEDS ORDERED: Acetaminophen 650 MG Suppository PR PRN (19:47)
[2018-03-03] MEDS ORDERED: Ondansetron HCl/PF 4 MG/2 ML Vial IVP PRN (19:47)
[2018-03-03] MEDS: Dextrose 5 %-0.45 % NaCl 1,000 ML IV SCH (20:37)
[2018-03-03] MEDS: Famotidine/PF 20 mg/2ml Vial SLOW IVP SCH (20:37)
--- NOTE | 2018-03-04 01:33 | HP ---
REASON FOR ADMISSION: Small-bowel obstruction. HISTORY OF PRESENT ILLNESS: The patient gives history of his abdomen getting distended on . He in fact vomited once, soon after he felt better, but from Saturday on, his abdomen is progressively getting bigger. He has felt nauseous, but has not vomited. He has tried to ambulate in the house, but the distention and mild abdominal colic has been preventing him from ambulating now. The patient has history of colon cancer and is on palliative chemotherapy with multiple metastases. He states he has had prior history of bowel obstruction as well and was given chemotherapy which led to resolution of his bowel obstruction in the past. The patient's last bowel movement was on Saturday when he had a small amount of stool which was hard in consistency. PAST MEDICAL AND SURGICAL HISTORY: History of colon cancer on palliative chemotherapy, appendectomy, colectomy, history of PE on Eliquis. CURRENT MEDICATIONS: The patient is on Eliquis 5 mg twice daily. ALLERGIES: No known drug allergies. PERSONAL HISTORY: Quit smoking more than 10 years ago, but has smoked 1-1/2 pack a day for nearly 20 years before that. Does not abuse alcohol or drugs. Lives with his . FAMILY HISTORY: Mother of massive [place] at the age of 32 years. Father also had coronary artery disease and at the age of 70 years. CODE STATUS: DNR. I have discussed this with the patient at bedside and is the POA who is here at bedside as well. REVIEW OF SYSTEMS: The following complete review of systems was negative, unless otherwise mentioned in the HPI or below: Constitutional: Weight loss or gain, ability to conduct usual activities. Skin: Rash, itching. Eyes: Double vision, pain. ENT/Mouth: Nose bleeding, neck stiffness, pain, tenderness. Cardiovascular: Palpitations, dyspnea on exertion, orthopnea. Respiratory: Shortness of breath, wheezing, cough, hemoptysis, fever or night sweats. Gastrointestinal: Poor appetite, abdominal pain, heartburn, nausea, vomiting, constipation, or diarrhea. Genitourinary: Urgency, frequency, dysuria, nocturia. Musculoskeletal: Pain, swelling. Neurologic/Psychiatric: Anxiety, depression. Allergy/Immunologic: Skin rash, bleeding tendency. PHYSICAL EXAMINATION: GENERAL: The patient is a 62-year-old male who is currently not in any acute distress. VITAL SIGNS: Blood pressure 149/91, pulse 120 per minute, respiratory rate 20 per minute, temperature 97.9 degrees Fahrenheit, saturating 96% on room air. NECK: Supple, no elevated JVD. HEENT: Eyes: Extraocular muscles intact. Pupils reacting to light. Oral cavity: Mucous membranes are moist. No exudates or congestion. CARDIOVASCULAR SYSTEM: S1, S2 heard. Regular rhythm. RESPIRATORY SYSTEM: Air entry 1+ bilateral. No rales or rhonchi. ABDOMEN: Distended. No rigidity or guarding. EXTREMITIES: No peripheral edema or calf tenderness. VASCULAR SYSTEM: Peripheral pulses 1+ bilateral, no ischemic ulcerations or gangrene. CENTRAL NERVOUS SYSTEM: No gross focal deficits noted. The patient is alert, awake, and oriented well. PSYCHIATRIC: The patient's mood is euthymic. No hallucinations or delusions. LABORATORY AND X-RAY FINDINGS: White count of 6, H&H of 13 and 43, platelet count of 280 with 65% neutrophils. Potassium is 4.1, serum bicarbonate 27, BUN 23, creatinine 1.6, glucose 127, total bilirubin 1.3, albumin is 5.0. Abdominal and pelvic CAT scan with IV contrast done shows marked small-bowel obstruction, there is evidence of multiple peritoneal soft tissue masses throughout abdomen and pelvis, most prominent in the right lateral abdomen, probably representing peritoneal or omental metastasis. There are also abnormal lymph nodes in the right and left pericardial fat. Distal small bowel and colon are decompressed except for dilated feces filled rectum, trace ascites is seen. CLINICAL IMPRESSION AND PLAN: The patient will be admitted to medical floor for small-bowel obstruction likely medical management in view of colon cancer with multiple metastases. We will consult Dr. Mujica, his oncologist. The patient is scheduled for chemo on Saturday. Likely he might have to prepone the chemo. He will be on gentle IV hydration and we will carefully watch his electrolytes. The patient will need to ambulate at least 3-4 times on the hour in the hallway. I have mentioned and counseled regarding this to patient. The patient is aware that his cancer has progressed and is on palliative chemo per patient. He has had a prior episode of small-bowel obstruction which got resolved with chemo per patient. He does not want to be resuscitated and prefers not to have any surgery. We will continue to closely monitor him on medical floor. [facility]
[2018-03-04 04:32] LABS: #Basophils 0.1 thou/uL (0.0-0.2); #Eosinphils 0.3 thou/uL (0.0-0.7); #Lymphocytes 1.8 thou/uL (1.20-3.40); #Monocytes 0.9 thou/uL (0.11-0.59); #Neutrophils 2.9 thou/uL (1.40-6.50); %Basophils 1.2 % (0.0-1.0); %Eosinophils 4.8 % (0.0-10.0); %Lymphocytes 30.7 % (21.0-51.0); %Monocytes 14.9 % (0.0-10.0); %Neutrophils 48.4 % (42.0-75.0); Hemoglobin 12.5 g/dL (14.0-18.0); Mean Corpuscular HGB CONC 32.5 g/dL (32.0-36.0); Mean Corpuscular Volume 89.1 fL (78.0-98.0); Mean Platelet Volume 8.6 fL (7.4-10.4); Platelet Count 212 thou/uL (130-400); RBC Distribution Width 14.3 % (11.5-14.5); Red Blood Cell (RBC) Count 4.33 mill/uL (4.70-6.10)
[2018-03-04 04:49] LABS: Anion Gap 13 mmol/L (10-20); BUN (Urea Nitrogen) 21 mg/dL (8.4-25.7); Calc. Creatinine Clearance 67 mL/min (70-130); Calcium 9.8 mg/dL (7.8-10.44); Carbon Dioxide 28 mmol/L (23-31); Chloride 100 mmol/L (98-107); Estimated GFR-MDRD 66; Glucose 128 mg/dL (80-115); Potassium 4.4 mmol/L (3.5-5.1); Sodium 137 mmol/L (136-145)
[2018-03-04] MEDS: Dextrose 5 %-0.45 % NaCl 1,000 ML IV SCH ×3 (05:36→19:40)
[2018-03-04] MEDS ORDERED: MD-Gastroview 120 ML BOT ONE (08:02)
[2018-03-04] MEDS: Famotidine/PF 20 mg/2ml Vial SLOW IVP SCH ×2 (10:41→19:37)
[2018-03-04] MEDS: Enoxaparin Sodium 40 MG/0.4 ML SYRINGE SC SCH (10:43)
--- NOTE | 2018-03-04 11:35 | CON ---
DATE OF CONSULTATION: 03/04/2018 REQUESTING PHYSICIAN: Dr. Ellis HISTORY OF PRESENT ILLNESS: This is a 62-year-old man with history of stage IV meta static right colon cancer. The patient presented with recurrent abdominal distention associated with intermittent episodes of nausea and vomiting. The patient has not passed any flatus over the last a lmost 2 weeks. Last bowel movement was 4 days ago. The patient denies any fevers or chills. He had a bout of partial small-bowel obstruction which was managed successfully during a short hospit al admission in 06/2017. The patient denies any fevers or chills. PAST MEDICAL HISTORY: Stage IV right colon cancer, superior mesenteric venous thrombosis diagnosed i 2016. SURGICAL HISTORY: Pertinent for right hemicolectomy with primary anastomosis in 02/2016, he also rep orts appendectomy a few years prior to the right colectomy. The patient is also status post a right Port-A-Cath placement. SOCIAL HISTORY: He had a one and a half pack cigarette smoking history for approximately 20 years. He has not smoked over the last 10 years, nevertheless. The patient denies any ethanol or illicit dr ug abuse. FAMILY HISTORY: Significant for multiple family members with coronary arterial disease including his parents and a brother. He has no family history of colon cancer. PREHOSPITALIZATION MEDICATIONS: Eliquis 5 mg p.o. b.i.d. ALLERGIES: Patient denies any known drug allergies. REVIEW OF SYSTEMS: Ten point review of systems essentially unremarkable except for as stated in past medical history and chief complaint. PHYSICAL EXAMINATION: GENERAL: This reveals a 62-year-old normally developed man who is otherwise coherent and interactive and appears stated age. The patient is alert and oriented x3, appears to be in no acute distress at the time of my evaluation. VITAL SIGNS: Includes blood pressure 121/79, pulse 80, respiratory rate is 16, temperature is 98 deg addison Fahrenheit, oxygen saturation 99% on room air. HEENT: Reveals normocephalic and atraumatic. Pupils are equal, round, and reactive to light and acc ommodation. Extraocular muscles are intact bilaterally. No sclerae icterus is present. CARDIOVASCULAR: Reveals a regular rate and rhythm, no murmurs or gallops auscultated. LUNGS: Clear to auscultation bilaterally. Breathing regular and unlabored. ABDOMEN: Soft, moderately distended, but nontender to palpation. Liver and spleen are nonpalpable b elow costal margins. EXTREMITIES: Reveals 2+ and pedal pulses bilaterally. No ankle edema is present. NEUROLOGIC: Reveals no focal deficits present. PERTINENT LABORATORY FINDINGS: Today includes a CBC with 6000 white blood cells, hemoglobin and shivani tocrit 12.5 and 38.6 respectively. Platelet count is 212,000. Metabolic profile: Sodium 137, potas sium is 4.4, chloride is 100, bicarbonate is 28, BUN 21, creatinine is 1.33, glucose is 128. Note th at BUN and creatinine yesterday were noted at 23 and 1.61 respectively. I have personally reviewed the CT scan of the abdomen and pelvis which was obtained yesterday reveali ng multiple distended loops of proximal mid small bowel. Also noted multiple abnormal densities with in the abdominal cavity involving the omentum and the right anterior abdominal wall consistent with m etastatic implants. The patient also had a diffuse pericardiac and peritoneal adenopathy. There is a small free fluid pr esent. No pneumoperitoneum is present. IMPRESSION: 1. Acute recurrent small-bowel obstruction likely secondary to adhesions versus a progressive carcin omatosis. 2. History of stage IV metastatic right colon cancer. PLAN: 1. We will obtain a small bowel follow through using Gastrografin. Of note is that a nasogastric tu be which was placed in the emergency department has returned a moderate amount of clear, specifically speaking nonbilious effluent. 2. Encourage the patient to ambulate to avoid complications of venous thromboembolism.
--- NOTE | 2018-03-04 15:03 | PDOC.PN ---
- Subjective Encounter Start Date: 03/04/18 Encounter Start Time: 12:00 Subjective: no bm or flatus -: is ambulating in room -: abd pain and distention has eased up a bit - Objective Resuscitation Status: Resuscitation Status DNR:Do Not Resuscitate MAR Reviewed: Yes Vital Signs & Weight: Vital Signs (12 hours) Temp Pulse Resp BP Pulse Ox 03/04/18 08:00 98.0 F 80 16 121/79 99 03/04/18 04:00 97.7 F 91 20 107/73 95 Weight Admit Weight 186 lb 3 oz Weight 186 lb 3 oz I&O: 03/03/18 03/04/18 03/05/18 06:59 06:59 06:59 Intake Total 1000 Output Total 300 Balance 700 Result Diagrams: 03/04/18 03:54 03/04/18 03:54 Phys Exam - Physical Examination HEENT: PERRLA, sclera anicteric Neck: no JVD, supple Respiratory: no wheezing, no rales Cardiovascular: RRR, no significant murmur Gastrointestinal: soft distention++, no rigidity or guarding Musculoskeletal: no edema, pulses present Neurological: non-focal, moves all 4 limbs Psychiatric: normal affect, A&O x 3 Dx/Plan (1) SBO (small bowel obstruction) Code(s): K56.609 - UNSP INTESTNL OBST, UNSP TO PARTIAL VERSUS COMPLETE OBST Status: Acute (2) History of pulmonary embolus (PE) Code(s): Z86.711 - PERSONAL HISTORY OF PULMONARY EMBOLISM Status: Chronic (3) Colon cancer Code(s): C18.9 - MALIGNANT NEOPLASM OF COLON, UNSPECIFIED Status: Chronic Qualifiers: Colon location: ascending Qualified Code(s): C18.2 - Malignant neoplasm of ascending colon - Plan npo -: gentle iv hydration, electrolytes are stable -: to ambulate as tolerated in hallway -: on ng suction -: hold eliquis until sbo clears up * . Review of Systems - Medications/Allergies Allergies/Adverse Reactions: Allergies Allergy/AdvReac Type Severity Reaction Status Date / Time hydroxyzine Allergy Verified 03/03/18 20:06 Medications: Current Medications Acetaminophen (Tylenol) 650 mg DE Q4H PRN PRN Reason: Headache/Fever or Pain Enoxaparin Sodium (Lovenox) 40 mg SC 0900 [facility] Last Admin: 03/04/18 10:43 Dose: Not Given Famotidine (Pepcid) 20 mg SLOW IVP Q12HR [facility] Last Admin: 03/04/18 10:41 Dose: 20 mg Dextrose/Sodium Chloride (D5 1/2 Ns) 1,000 mls @ 100 mls/hr IV .Q10H [facility] Stop: 03/05/18 00:44 Last Admin: 03/04/18 14:44 Dose: Not Given Ondansetron HCl (Zofran) 4 mg IVP Q6H PRN PRN Reason: Nausea/Vomiting
--- NOTE | 2018-03-04 18:42 | RAD ---
SMALL BOWEL FOLLOW THROUGH: 03/04/18 COMPARISON: 06/26/17 HISTORY: Small bowel obstruction. FINDINGS: A small bowel follow through was performed with gastrografin given via the patient's NG tube. There a re multiple dilated loops of small bowel. The contrast predominantly stayed within the stomach. A sma ll amount of contrast passed from the stomach into the small bowel loops. Anastomotic stable lines ar e seen in the right abdomen. The contrast became diluted as it passed more distally and cannot be bailey berry seen on the four hour exam. Dilated loops of small bowel persists throughout the study. There is radiodense material overlying the pelvis which could represent contrast within the rectum or urinary bladder. IMPRESSION: Findings are suspicious for high grade bowel obstruction. POS: [facility]
[2018-03-05] MEDS: Enoxaparin Sodium 40 MG/0.4 ML SYRINGE SC SCH (08:49)
[2018-03-05] MEDS: Famotidine/PF 20 mg/2ml Vial SLOW IVP SCH ×2 (08:50→21:26)
--- NOTE | 2018-03-05 08:56 | CON ---
DATE OF CONSULTATION: 03/04/2018 REASON FOR CONSULTATION: Colon Cancer. 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 The patient states he began having abdominal distention one week prior to admission, accompanied by nausea, but no vomiting and abdomen progressively becoming more distended. The patient has had history of bowel obstruction in the past, which resolved with chemotherapy. Patient states his last bowel movement was on Saturday, but this was a very, very small amount of stool. Since admission, the patient has had an NG tube placed with improvement in his symptoms; however, he is still not passing gas. He is currently undergoing a small bowel follow through. PAST MEDICAL HISTORY: Colon cancer as stated above, pulmonary embolism. PAST SURGICAL HISTORY: Colectomy, appendectomy. MEDICATIONS: Current medications reviewed. ALLERGIES: No known drug allergies. SOCIAL HISTORY: Former smoker of 1-1/2 packs per day for 20 years, quit more than 10 years ago. Denies alcohol or drug use. Lives with his . FAMILY HISTORY: Heart attack in his mother, coronary artery disease in his father. REVIEW OF SYSTEMS: Ten-point review of systems was negative except as stated in the HPI. PHYSICAL EXAMINATION: VITAL SIGNS: Respiratory rate 20 per minute on admission, temperature 97.9, saturating 96% on room air. GENERAL: Patient is resting comfortably in bed, in no acute distress. NECK: Supple. No JVD. HEENT: NG tube in place, set to suction. CARDIOVASCULAR: Normal S1, S2 with regular rhythm and rate. RESPIRATORY: Clear to auscultation bilaterally. No wheezes, rales, or rhonchi. ABDOMEN: Mildly distended without rigidity or guarding. Minimal bowel sounds audible. EXTREMITIES: No edema. NEUROLOGIC: Nonfocal. Cranial nerves II to III grossly intact. PSYCHIATRIC: Awake, alert, and oriented x3. LABORATORY DATA: White count 6, hemoglobin 12.5, platelets 212,000, BUN 21, creatinine 1.33, calcium 10.6 on admission down to 9.8. IMAGING DATA: CT of abdomen and pelvis with IV contrast on 03/03/2018. Multiple small but abnormal lymph nodes in the right and left pericardial fat, matted mass in the right side of the abdomen measuring approximately 2.1 x 8.3 cm in size. Other nodular areas throughout the omentum including left upper quadrant which probably represents peritoneal or omental metastases. Markedly abnormally dilated mid and proximal small bowel with distention of the stomach with very decompressed distal ileum and colon, evidence for a high grade small- bowel obstruction. We would favor the point of obstruction to be in the right lateral abdomen, possibly in relationship to neoplastic disease, some trace intraperitoneal fluid, but marked improvement in previously noted extensive ascites seen in the study dated 06/25/2017. Small bowel was much more dilated on this study than prior. 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 The patient has a history of obstruction that improved with chemotherapy. The patient was initially started on FOLFOX and Avastin in 2015 and completed this in 09/2016. He was started on FOLFIRI and Avastin in and at the end of 08/2017, this was changed to every 3 weeks for the patient to be able to tolerate better. Patient last received chemotherapy on and did not receive his next dose scheduled for 02/12/2018 due to insurance and financial issues. He has not received chemotherapy in about 6 weeks. According to the last scan, he did have an improvement in disease with current treatment. Patient is scheduled to receive chemotherapy tomorrow; however, will not give this given current small-bowel obstruction. Once obstruction has resolved, we will start the patient's chemotherapy again. If symptoms do not improve with conservative management, may need to consider palliative surgery. Thank you for this consult. [facility]
--- NOTE | 2018-03-05 11:42 | PDOC.PN ---
- Subjective Encounter Start Date: 03/05/18 Encounter Start Time: 09:15 Subjective: no vomiting or nausea now -: abd feels better this am -: had severe vomiting and abd pain after sbft last evening - Objective Resuscitation Status: Resuscitation Status DNR:Do Not Resuscitate MAR Reviewed: Yes Vital Signs & Weight: Vital Signs (12 hours) Temp Pulse Resp BP Pulse Ox 03/05/18 11:11 97.9 F 88 18 115/97 H 99 03/05/18 07:30 97.9 F 88 20 121/86 99 Weight Admit Weight 186 lb 3 oz Weight 186 lb 3 oz I&O: 03/04/18 03/05/18 03/06/18 06:59 06:59 06:59 Intake Total 1000 2000 Output Total 300 1350 Balance 700 650 Result Diagrams: 03/04/18 03:54 03/04/18 03:54 Phys Exam - Physical Examination HEENT: PERRLA, moist MMs Neck: no JVD, supple Respiratory: no wheezing, no rales Cardiovascular: RRR, no significant murmur Gastrointestinal: soft distention++ Musculoskeletal: no edema, pulses present Neurological: non-focal, moves all 4 limbs Psychiatric: normal affect, A&O x 3 Dx/Plan (1) SBO (small bowel obstruction) Code(s): K56.609 - UNSP INTESTNL OBST, UNSP TO PARTIAL VERSUS COMPLETE OBST Status: Acute (2) History of pulmonary embolus (PE) Code(s): Z86.711 - PERSONAL HISTORY OF PULMONARY EMBOLISM Status: Chronic (3) Colon cancer Code(s): C18.9 - MALIGNANT NEOPLASM OF COLON, UNSPECIFIED Status: Chronic Qualifiers: Colon location: ascending Qualified Code(s): C18.2 - Malignant neoplasm of ascending colon - Plan clamp NG tube qhrly for 15min and pt needs to ambulate -: d/w staff -: electrolytes are stable -: on iv fluids -: further management of sbo per gen surgery/onc advice * . Review of Systems - Medications/Allergies Allergies/Adverse Reactions: Allergies Allergy/AdvReac Type Severity Reaction Status Date / Time hydroxyzine Allergy Verified 03/03/18 20:06 Medications: Current Medications Acetaminophen (Tylenol) 650 mg ND Q4H PRN PRN Reason: Headache/Fever or Pain Enoxaparin Sodium (Lovenox) 40 mg SC 0900 [facility] Last Admin: 03/05/18 08:49 Dose: Not Given Famotidine (Pepcid) 20 mg SLOW IVP Q12HR [facility] Last Admin: 03/05/18 08:50 Dose: 20 mg Morphine Sulfate (Morphine) 2 mg SLOW IVP Q6H PRN PRN Reason: Severe Pain (7-10) Last Admin: 03/04/18 19:35 Dose: 2 mg Ondansetron HCl (Zofran) 4 mg IVP Q6H PRN PRN Reason: Nausea/Vomiting Last Admin: 03/04/18 18:04 Dose: 4 mg
--- NOTE | 2018-03-05 16:27 | PDOC.GSPN ---
Surgery Progress Note: Subj - Subjective Narrative: Feels slightly better today. NG mostly saliva, non-bilious. Pain has resolved Surgery Progress Note: Obj - Vital signs Vital signs: Vital Signs - Most Recent Temp Pulse Resp BP Pulse Ox 97.1 F L 61 18 107/77 96 03/05/18 16:00 03/05/18 16:00 03/05/18 16:00 03/05/18 16:00 03/05/18 16:00 - Physical Exam General: no distress Abdomen: soft, distended, tender (Tender diffusely) Surgery Progress Note: Results - Labs Result Diagrams: 03/04/18 03:54 03/04/18 03:54 Surgery Progress Note: A/P - Problem (1) Colon cancer Current Visit: Yes Code(s): C18.9 - MALIGNANT NEOPLASM OF COLON, UNSPECIFIED Status: Chronic Qualifiers: Colon location: ascending Qualified Code(s): C18.2 - Malignant neoplasm of ascending colon Assessment and Plan: I suspect the obstruction is at previous anastamosis but he also has carcinomatosis -Any surgical procedure would have high morbidity -Will follow, if not better early next week plan laparotomy, only real surgical option would be ileostomy (2) Colonic obstruction Current Visit: Yes Code(s): K56.609 - UNSP INTESTNL OBST, UNSP TO PARTIAL VERSUS COMPLETE OBST Status: Acute
[2018-03-05] MEDS: Lactated Ringer's 1,000 ML IV SCH (21:31)
[2018-03-06 04:41] LABS: INR-International Normal Ratio 1.1; PTT 34.2 SEC (22.9-36.1); Prothrombin Time 14.6 SEC (12.0-14.7)
[2018-03-06 04:55] LABS: Anion Gap 19 mmol/L (10-20); BUN (Urea Nitrogen) 32 mg/dL (8.4-25.7); Calc. Creatinine Clearance 44 mL/min (70-130); Calcium 10.4 mg/dL (7.8-10.44); Carbon Dioxide 25 mmol/L (23-31); Chloride 98 mmol/L (98-107); Estimated GFR-MDRD 41; Glucose 104 mg/dL (80-115); Potassium 4.4 mmol/L (3.5-5.1); Sodium 138 mmol/L (136-145)
[2018-03-06 05:24] LABS: #Basophils 0.1 thou/uL (0.0-0.2); #Eosinphils 0.2 thou/uL (0.0-0.7); #Lymphocytes 1.7 thou/uL (1.20-3.40); #Monocytes 0.9 thou/uL (0.11-0.59); #Neutrophils 4.4 thou/uL (1.40-6.50); %Eosinophils 3.4 % (0.0-10.0); %Lymphocytes 23.4 % (21.0-51.0); %Monocytes 12.5 % (0.0-10.0); %Neutrophils 59.7 % (42.0-75.0); Hemoglobin 13.7 g/dL (14.0-18.0); Mean Corpuscular HGB CONC 31.9 g/dL (32.0-36.0); Mean Corpuscular Hemoglobin 28.2 pg (27.0-31.0); Mean Corpuscular Volume 88.2 fL (78.0-98.0); Mean Platelet Volume 8.7 fL (7.4-10.4); Platelet Count 210 thou/uL (130-400); RBC Distribution Width 14.5 % (11.5-14.5); Red Blood Cell (RBC) Count 4.87 mill/uL (4.70-6.10); White Blood Cell (WBC) Count 7.4 thou/uL (4.8-10.8)
[2018-03-06] MEDS: Lactated Ringer's 1,000 ML IV SCH ×2 (07:59→14:38)
[2018-03-06] MEDS: Famotidine/PF 20 mg/2ml Vial SLOW IVP SCH (08:00)
[2018-03-06] MEDS: Enoxaparin Sodium 40 MG/0.4 ML SYRINGE SC SCH (08:00)
--- NOTE | 2018-03-06 10:39 | PDOC.PN ---
- Subjective Encounter Start Date: 03/06/18 Encounter Start Time: 07:15 Subjective: is ambulating today in hallway -: still has abd distention, no flatus or bm yet - Objective Resuscitation Status: Resuscitation Status DNR:Do Not Resuscitate MAR Reviewed: Yes Vital Signs & Weight: Vital Signs (12 hours) Temp Pulse Resp BP Pulse Ox 03/06/18 07:27 97.8 F 73 18 116/81 97 Weight Admit Weight 186 lb 3 oz Weight 186 lb 3 oz I&O: 03/05/18 03/06/18 03/07/18 06:59 06:59 06:59 Intake Total 2000 1000 Output Total 1350 1000 Balance 650 0 Result Diagrams: 03/06/18 04:02 03/06/18 04:02 Phys Exam - Physical Examination HEENT: PERRLA, moist MMs Neck: no JVD, supple Respiratory: no wheezing, no rales Cardiovascular: RRR, no significant murmur Gastrointestinal: soft distention++ Musculoskeletal: no edema, pulses present Neurological: non-focal, moves all 4 limbs Psychiatric: normal affect, A&O x 3 Dx/Plan (1) SBO (small bowel obstruction) Code(s): K56.609 - UNSP INTESTNL OBST, UNSP TO PARTIAL VERSUS COMPLETE OBST Status: Acute (2) History of pulmonary embolus (PE) Code(s): Z86.711 - PERSONAL HISTORY OF PULMONARY EMBOLISM Status: Chronic (3) Colon cancer Code(s): C18.9 - MALIGNANT NEOPLASM OF COLON, UNSPECIFIED Status: Chronic Qualifiers: Colon location: ascending Qualified Code(s): C18.2 - Malignant neoplasm of ascending colon - Plan will be getting chemotherapy today, d/w -: tx to onc floor -: continue ng suction -: he did not ambulate much yesterday or day before, he is moving now -: lactated ringer for creatinine of 2 this am, hco3 is normal * . Review of Systems - Medications/Allergies Allergies/Adverse Reactions: Allergies Allergy/AdvReac Type Severity Reaction Status Date / Time hydroxyzine Allergy Verified 03/03/18 20:06 Medications: Current Medications Acetaminophen (Tylenol) 650 mg DE Q4H PRN PRN Reason: Headache/Fever or Pain Enoxaparin Sodium (Lovenox) 40 mg SC 0900 [facility] Last Admin: 03/06/18 08:00 Dose: Not Given Famotidine (Pepcid) 20 mg SLOW IVP 0900 [facility] Lactated Ringer's (Lactated Ringer's) 1,000 mls @ 75 mls/hr IV .[id number] AGNES Last Admin: 03/06/18 07:59 Dose: Not Given Morphine Sulfate (Morphine) 2 mg SLOW IVP Q6H PRN PRN Reason: Severe Pain (7-10) Last Admin: 03/05/18 17:53 Dose: 2 mg Ondansetron HCl (Zofran) 4 mg IVP Q6H PRN PRN Reason: Nausea/Vomiting Last Admin: 03/04/18 18:04 Dose: 4 mg
[2018-03-06] MEDS ORDERED: Atropine Sulfate 0.25 MG in Sodium Chloride 0.9% 50 ML IVPB SCH (11:15)
[2018-03-06] MEDS ORDERED: Dexamethasone 20 MG in Sodium Chloride 0.9% 50 ML IVPB SCH (11:15)
[2018-03-06] MEDS ORDERED: Palonosetron HCl 0.25 MG in Sodium Chloride 0.9% 50 ML IVPB SCH (11:15)
[2018-03-06] MEDS ORDERED: IRINOTECAN HCL IVPB SCH (11:30)
[2018-03-06] MEDS ORDERED: SODIUM CHLORIDE 0.9% IVPB SCH (11:30)
[2018-03-06] MEDS: SODIUM CHLORIDE 0.9% IVPB SCH (17:50)
[2018-03-06] MEDS: FLUOROURACIL IVPB SCH (17:50)
[2018-03-07 04:59] LABS: Anion Gap 21 mmol/L (10-20); BUN (Urea Nitrogen) 55 mg/dL (8.4-25.7); Calc. Creatinine Clearance 30 mL/min (70-130); Calcium 10.1 mg/dL (7.8-10.44); Carbon Dioxide 21 mmol/L (23-31); Chloride 101 mmol/L (98-107); Estimated GFR-MDRD 28; Glucose 142 mg/dL (80-115); LDH 231 U/L (125-220); Potassium 4.7 mmol/L (3.5-5.1); Sodium 138 mmol/L (136-145)
[2018-03-07] MEDS: Lactated Ringer's 1,000 ML IV SCH (05:16)
[2018-03-07 05:27] LABS: Band 7 % (5-11); Hemoglobin 13.7 g/dL (14.0-18.0); Lymphocytes 14 % (21-51); MDiff Complete? YES; Mean Corpuscular HGB CONC 33.5 g/dL (32.0-36.0); Mean Corpuscular Hemoglobin 29.4 pg (27.0-31.0); Mean Corpuscular Volume 87.6 fL (78.0-98.0); Mean Platelet Volume 9.6 fL (7.4-10.4); Monocytes 5 % (0-10); Neutrophil 73 % (42-75); PLT Morphology Comment Appears Adequate; Platelet Count 195 thou/uL (130-400); Promyelocytes 1 % (0-0); RBC Distribution Width 14.5 % (11.5-14.5); Red Blood Cell (RBC) Count 4.66 mill/uL (4.70-6.10); White Blood Cell (WBC) Count 3.3 thou/uL (4.8-10.8)
[2018-03-07 10:49] VITALS: BMI 22.9
[2018-03-07] MEDS: Famotidine/PF 20 mg/2ml Vial SLOW IVP SCH (11:06)
--- NOTE | 2018-03-07 11:47 | PDOC.PN ---
- Subjective Encounter Start Date: 03/07/18 Encounter Start Time: 11:46 Feels ok. Trying to get up and around as he can. No significant pain. No BM. Feels like he might be able to push a little. - Objective Resuscitation Status: Resuscitation Status DNR:Do Not Resuscitate Vital Signs & Weight: Vital Signs (12 hours) Temp Pulse Resp BP Pulse Ox 03/07/18 07:50 98.3 F 96 18 128/84 95 Weight Admit Weight 186 lb 3 oz Weight 174 lb 3.2 oz I&O: 03/06/18 03/07/18 03/08/18 06:59 06:59 06:59 Intake Total 1000 0 Output Total 1000 800 Balance 0 -800 Result Diagrams: 03/07/18 04:28 03/07/18 04:28 Phys Exam - Physical Examination Constitutional: NAD NGT Respiratory: no wheezing, no rales, no rhonchi Cardiovascular: RRR, no significant murmur, no rub Gastrointestinal: soft, non-tender, no distention Minimal BS. 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 No evidence of resolution to this point. * Chemo. 5FU infusing now. * If not resolved by early next week, surg will consider intervention. * Patient is fully aware of the situation and the risks.
--- NOTE | 2018-03-07 13:47 | PDOC.GSPN ---
Surgery Progress Note: Subj - Subjective Patient reports: no new complaints Surgery Progress Note: Obj - Vital signs Vital signs: Vital Signs - Most Recent Temp Pulse Resp BP Pulse Ox 98.0 F 96 18 130/86 95 03/07/18 12:26 03/07/18 12:26 03/07/18 12:26 03/07/18 12:03/07/18 12:26 - Physical Exam General: no distress Cardiovascular: regular rate and rhythm Respiratory: clear to auscultation Abdomen: soft, non tender, distended Surgery Progress Note: Results - Labs Result Diagrams: 03/07/18 04:28 03/07/18 04:28 Lab results: Laboratory Results - last 24 hr 03/07/18 03/07/18 03/07/18 04:28 04:28 04:28 WBC 3.3 L RBC 4.66 L Hgb 13.7 L Hct 40.9 L MCV 87.6 MCH 29.4 MCHC 33.5 RDW 14.5 Plt Count 195 MPV 9.6 Neutrophils % (Manual) 73 Band Neuts % (Manual) 7 Lymphocytes % (Manual) 14 L Monocytes % (Manual) 5 Promyelocytes % (Man) 1 H Plt Morphology Comment Appears Adequate Sodium 138 Potassium 4.7 Chloride 101 Carbon Dioxide 21 L Anion Gap 21 H BUN 55 H Creatinine 2.80 H Estimated GFR (MDRD) 28 Glucose 142 H Uric Acid 18.0 H Calcium 10.1 Lactate Dehydrogenase 231 H Carcinoembryonic Ag 1.30 Surgery Progress Note: A/P - Problem (1) Colon cancer Current Visit: Yes Code(s): C18.9 - MALIGNANT NEOPLASM OF COLON, UNSPECIFIED Status: Chronic Qualifiers: Colon location: ascending Qualified Code(s): C18.2 - Malignant neoplasm of ascending colon (2) Colonic obstruction Current Visit: Yes Code(s): K56.609 - UNSP INTESTNL OBST, UNSP TO PARTIAL VERSUS COMPLETE OBST Status: Acute - Plan Plan: Plan cont NG, NPO until Saturday then re-assess -Any surgery would be palliative
[2018-03-07] MEDS ORDERED: Lactated Ringer's 1,000 ML IV SCH (16:23)
[2018-03-07] MEDS: Enoxaparin Sodium 40 MG/0.4 ML SYRINGE SC SCH (17:36)
[2018-03-07] MEDS: Dextrose 5 % And 0.9 % NaCl 1,000 ML IV SCH (18:30)
[2018-03-07] MEDS: FLUOROURACIL IVPB SCH (18:40)
[2018-03-07] MEDS: SODIUM CHLORIDE 0.9% IVPB SCH (18:40)
--- NOTE | 2018-03-07 23:30 | CON ---
DATE OF CONSULTATION: 03/07/2018 CONSULTING PHYSICIAN: Liz Ragsdale M.D. REQUESTING PHYSICIAN: Dr. Danielson. REASON FOR CONSULTATION: Acute kidney injury. IMPRESSION: 1. Acute kidney injury. This is likely prerenal in the context of excessive gastrointestinal loss o f fluid with repletion. 2. Bowel obstruction in the context of colonic CA, on palliative chemotherapy. PLAN: 1. We will increase the patient's IV fluid resuscitation rate to account for the gastrointestinal lo ss of fluid. 2. Consider enema for this bowel obstruction. The patient has been able to HISTORY OF PRESENT ILLNESS: History is that of a 62-year-old gentleman with advanced metastatic colo gt carcinoma, who presented here with features of bowel obstruction. The patient had NG tube that i s still draining quite a bit. The patient has not been able to move his bowel and is n.p.o. The sathish ent presented with a creatinine of 1.6, later came down to 1.3, but now at time of dictation, creatin ine has gone up to 2.8 with BUN that is also elevated. As a result of this, decision has been taken to involve Renal in the management of this case. PAST MEDICAL HISTORY: Significant for; 1. Colonic CA. 2. Bowel obstruction in the past. 3. History of pulmonary embolism, on anticoagulation. MEDICATIONS: Reviewed and as documented on [facility]. ALLERGIES: No known drug allergy. SOCIAL HISTORY: Remote tobacco use. No alcohol or illicit drug use. FAMILY HISTORY: No family history of kidney disease. REVIEW OF SYSTEMS: As documented in the body of the history. All the other systems were reviewed an d found not to be significantly related to presenting illness. PHYSICAL EXAMINATION: GENERAL: The patient was found with NG tube that is still draining quite a bit, with the following v ital signs. VITAL SIGNS: Afebrile with temperature 98, pulse 87, respiratory rate of 18, O2 sat of 93% with bloo d pressure 122/85. HEENT: Unremarkable with moist oral mucosa. CARDIOVASCULAR SYSTEM: First and second heart sounds were heard. RESPIRATORY SYSTEM: Clear to auscultation. DIGESTIVE SYSTEM: Revealed a distended abdomen. EXTREMITIES: No peripheral edema. NEUROLOGIC: Alert and oriented. No lateralizing sign. LYMPHATICS: No peripheral lymphadenopathy. SUMMARY: A 62-year-old gentleman with advanced metastatic colonic CA, who presented here with high g rade bowel obstruction, now experiencing worsening renal failure. Thank you for this consultation. We will follow with you.
[2018-03-08] MEDS: Dextrose 5 % And 0.9 % NaCl 1,000 ML IV SCH ×3 (02:55→20:02)
[2018-03-08 05:52] LABS: #Lymphocytes 0.8 thou/uL (1.20-3.40); #Monocytes 0.8 thou/uL (0.11-0.59); #Neutrophils 6.5 thou/uL (1.40-6.50); %Basophils 0.1 % (0.0-1.0); %Eosinophils 0.2 % (0.0-10.0); %Lymphocytes 10.2 % (21.0-51.0); %Monocytes 9.7 % (0.0-10.0); %Neutrophils 79.9 % (42.0-75.0); Hemoglobin 12.5 g/dL (14.0-18.0); Mean Corpuscular HGB CONC 31.6 g/dL (32.0-36.0); Mean Corpuscular Hemoglobin 27.7 pg (27.0-31.0); Mean Corpuscular Volume 87.5 fL (78.0-98.0); Mean Platelet Volume 9.5 fL (7.4-10.4); Platelet Count 142 thou/uL (130-400); RBC Distribution Width 14.5 % (11.5-14.5); Red Blood Cell (RBC) Count 4.52 mill/uL (4.70-6.10); White Blood Cell (WBC) Count 8.2 thou/uL (4.8-10.8)
[2018-03-08 06:14] LABS: Anion Gap 15 mmol/L (10-20); BUN (Urea Nitrogen) 60 mg/dL (8.4-25.7); Calc. Creatinine Clearance 39 mL/min (70-130); Calcium 9.5 mg/dL (7.8-10.44); Carbon Dioxide 22 mmol/L (23-31); Chloride 107 mmol/L (98-107); Estimated GFR-MDRD 37; Glucose 137 mg/dL (80-115); Potassium 4.2 mmol/L (3.5-5.1); Sodium 140 mmol/L (136-145)
[2018-03-08] MEDS: Enoxaparin Sodium 30 MG/0.3 ML SYRINGE SC SCH (10:23)
[2018-03-08] MEDS: Famotidine/PF 20 mg/2ml Vial SLOW IVP SCH (10:31)
--- NOTE | 2018-03-08 11:26 | PRG ---
DATE OF SERVICE: 03/08/2018 SUBJECTIVE: Mr. Guerra is not any better, still having high output from his NG. OBJECTIVE: VITAL SIGNS: He is afebrile. Vital signs are stable. ABDOMEN: Distended, diffuse high-pitched bowel sounds. Minimal tenderness. EXTREMITIES: No ischemia or edema to extremities. LABORATORY DATA: White cell count is 8, hemoglobin is 12, platelet count is 142. Creatinine is 2.16 . ASSESSMENT: Ongoing malignant obstruction. Options are limited. I had a long discussion with he an d his today. We could attempt a palliative exploratory laparotomy. The only real option in thi s situation would be a loop ileostomy; however, I am not going to be able to release this obstruction without significant high morbidity, and Mr. Guerra understands that. We will attempt a palliative exploratory laparotomy tomorrow. He understands that there may be nothing that I can do, in which c ase he will be terminal and palliative care only. Plan this on Saturday.
[2018-03-08] MEDS ORDERED: Pegfilgrastim 6 MG/0.6 ML Delivery Kit SQ SCH (14:30)
--- NOTE | 2018-03-08 16:30 | PDOC.PN ---
- Subjective Encounter Start Date: 03/08/18 Encounter Start Time: 11:30 Feels about the same. No new complaints. - Objective Resuscitation Status: Resuscitation Status DNR:Do Not Resuscitate Vital Signs & Weight: Vital Signs (12 hours) Temp Pulse Resp BP Pulse Ox 03/08/18 16:19 97.9 F 98 22 H 119/78 98 03/08/18 11:54 98.3 F 77 20 132/77 100 03/08/18 08:43 98.2 F 58 L 20 134/85 100 03/08/18 08:00 100 Weight Admit Weight 186 lb 3 oz Weight 174 lb 3.2 oz I&O: 03/07/18 03/08/18 03/09/18 06:59 06:59 06:59 Intake Total 0 725 Output Total 800 2100 Balance -800 -1375 Result Diagrams: 03/08/18 04:33 03/08/18 04:33 Phys Exam - Physical Examination Constitutional: NAD NGT draining. Respiratory: no wheezing, no rales, no rhonchi, clear to auscultation bilateral Cardiovascular: RRR, no significant murmur, no rub Gastrointestinal: soft Slightly distended. Diminished BS. Musculoskeletal: no edema Psychiatric: normal affect, A&O x 3 Dx/Plan (1) Colon cancer Code(s): C18.9 - MALIGNANT NEOPLASM OF COLON, UNSPECIFIED Status: Chronic Qualifiers: Colon location: ascending Qualified Code(s): C18.2 - Malignant neoplasm of ascending colon (2) History of pulmonary embolus (PE) Code(s): Z86.711 - PERSONAL HISTORY OF PULMONARY EMBOLISM Status: Chronic (3) SBO (small bowel obstruction) Code(s): K56.609 - UNSP INTESTNL OBST, UNSP TO PARTIAL VERSUS COMPLETE OBST Status: Acute (4) Abdominal carcinomatosis Code(s): C76.2 - MALIGNANT NEOPLASM OF ABDOMEN Status: Acute - Plan * Has obstruction that appears to be small bowel. Likely secondary to carcinomatosis. Small chance it is something else. Surgery tomorrow to see if there is anything that can be done. Patient is very realistic about this. He understands that there is a reasonable chance that nothing more can be done. If not, he will be palliative care only. Start TPN tonight when his chemo is finished.
[2018-03-08] MEDS: Fat Emulsion 250 ML, Sodium Acetate 2 mEq/ml 40 MEQ, Sodium Chloride 30 MEQ, Potassium ... IV SCH (22:45)
--- NOTE | 2018-03-09 01:18 | PRG ---
DATE OF SERVICE: 03/08/2018 SUBJECTIVE: The patient noted with the following vital signs. PHYSICAL EXAMINATION: VITAL SIGNS: Afebrile, pulse of 77, O2 sat of 98%, blood pressure 132/77. HEENT: Unremarkable with moist oral mucosa. NECK: Supple, no conjunctival injection or icterus. CARDIOVASCULAR SYSTEM: First and second heart sounds were heard. RESPIRATORY SYSTEM: Clear to auscultation. DIGESTIVE SYSTEM: Revealed a benign abdomen with positive bowel sounds. EXTREMITIES: No peripheral edema. SKIN: No new gross rash. LYMPHATICS: No peripheral lymphadenopathy. IMPRESSION: 1. Acute on chronic kidney disease, likely in the context of prerenal state due to intravascular dep letion from high GI output. 2. Bowel obstruction in the context of intraabdominal malignancy. PLAN: 1. Continue current renal supportive measures. 2. Further management will be dependent on the clinical course.
[2018-03-09 06:46] LABS: Anion Gap 14 mmol/L (10-20); BUN (Urea Nitrogen) 40 mg/dL (8.4-25.7); Calc. Creatinine Clearance 52 mL/min (70-130); Calcium 9.8 mg/dL (7.8-10.44); Carbon Dioxide 28 mmol/L (23-31); Chloride 109 mmol/L (98-107); Estimated GFR-MDRD 53; Glucose 113 mg/dL (80-115); Potassium 4.1 mmol/L (3.5-5.1); Sodium 147 mmol/L (136-145)
[2018-03-09 07:08] LABS: #Eosinphils 0.1 thou/uL (0.0-0.7); #Lymphocytes 1.6 thou/uL (1.20-3.40); #Monocytes 0.2 thou/uL (0.11-0.59); #Neutrophils 4.4 thou/uL (1.40-6.50); %Basophils 0.4 % (0.0-1.0); %Eosinophils 1.9 % (0.0-10.0); %Lymphocytes 24.8 % (21.0-51.0); %Monocytes 3.2 % (0.0-10.0); %Neutrophils 69.7 % (42.0-75.0); Band 6 % (5-11); Eosinophils 2 % (0-10); Hemoglobin 12.8 g/dL (14.0-18.0); Lymphocytes 22 % (21-51); MDiff Complete? YES; Mean Corpuscular HGB CONC 31.5 g/dL (32.0-36.0); Mean Corpuscular Hemoglobin 28.1 pg (27.0-31.0); Mean Corpuscular Volume 89.1 fL (78.0-98.0); Mean Platelet Volume 9.1 fL (7.4-10.4); Monocytes 4 % (0-10); Neutrophil 66 % (42-75); Platelet Count 102 thou/uL (130-400); RBC Distribution Width 14.3 % (11.5-14.5); Red Blood Cell (RBC) Count 4.57 mill/uL (4.70-6.10); White Blood Cell (WBC) Count 6.3 thou/uL (4.8-10.8)
--- NOTE | 2018-03-09 08:06 | PDOC.PN ---
- Subjective Encounter Start Date: 03/09/18 Encounter Start Time: 08:05 Feels well. No complaints. Believes taking some ice chips po is helping him feel better. - Objective Resuscitation Status: Resuscitation Status DNR:Do Not Resuscitate Vital Signs & Weight: Vital Signs (12 hours) Temp Pulse Resp BP Pulse Ox 03/09/18 04:30 96.8 F L 96 14 121/77 99 03/08/18 23:13 98.0 F 92 12 122/77 99 Weight Admit Weight 186 lb 3 oz Weight 174 lb 3.2 oz I&O: 03/08/18 03/09/18 03/10/18 06:59 06:59 06:59 Intake Total 725 1995 Output Total 2100 3300 Balance -1375 -1304 Result Diagrams: 03/09/18 06:15 03/09/18 06:15 Phys Exam - Physical Examination Constitutional: NAD NGT in place. Respiratory: no wheezing, no rales, no rhonchi, clear to auscultation bilateral Cardiovascular: RRR, no significant murmur, no rub Gastrointestinal: soft, non-tender, no distention decreased BS. Psychiatric: normal affect Dx/Plan (1) Colon cancer Code(s): C18.9 - MALIGNANT NEOPLASM OF COLON, UNSPECIFIED Status: Chronic Qualifiers: Colon location: ascending Qualified Code(s): C18.2 - Malignant neoplasm of ascending colon (2) History of pulmonary embolus (PE) Code(s): Z86.711 - PERSONAL HISTORY OF PULMONARY EMBOLISM Status: Chronic Comment: Elitimothy held. On Lovenox. (3) SBO (small bowel obstruction) Code(s): K56.609 - UNSP INTESTNL OBST, UNSP TO PARTIAL VERSUS COMPLETE OBST Status: Acute Comment: Surgery was postponed because he received chemo yesterday. Planned for Saturday. Continue TPN. (4) Abdominal carcinomatosis Code(s): C76.2 - MALIGNANT NEOPLASM OF ABDOMEN Status: Acute Comment: Problematic for surgery. Patient understands the situation. Likely the best case scenario would be an ileostomy, but that may not be possible. - Plan * Chemo continuing. * Maintain TPN. * Maintain NGT to suction. * Exploratory, palliative laparotomy Saturday.
[2018-03-09] MEDS: Famotidine/PF 20 mg/2ml Vial SLOW IVP SCH (10:09)
[2018-03-09] MEDS: Enoxaparin Sodium 30 MG/0.3 ML SYRINGE SC SCH (10:10)
--- NOTE | 2018-03-09 10:20 | PRG ---
DATE OF SERVICE: 03/09/2018 SUBJECTIVE: Mr. Guerra' surgery this morning has put off due to the fact that he got the chemother apy yesterday. PHYSICAL EXAMINATION: VITAL SIGNS: He is afebrile. Vital signs are stable. ABDOMEN: Distended, minimally tender. Decreased bowel sounds. ASSESSMENT: Malignant obstruction carcinomatosis, but most likely I suspect obstruction that is prev ious anastomosis. PLAN: TPN has already been started. Plan surgery on Saturday. He likely is looking a diverting loop ileostomy just proximal to that old anastomosis. Plan surgery tomorrow.
[2018-03-09] MEDS ORDERED: Dextrose 5% in Water 1,000 ML IV PRN (15:33)
[2018-03-09] MEDS ORDERED: Dextrose 50% Abboject 50 ML SYRINGE SLOW IVP PRN (15:33)
[2018-03-09] MEDS: Dextrose 5% in Water 1,000 ML IV SCH (20:30)
[2018-03-09] MEDS: Fat Emulsion 250 ML, Sodium Acetate 2 mEq/ml 40 MEQ, Sodium Chloride 30 MEQ, Potassium ... IV SCH (22:32)
[2018-03-10] MEDS: Dextrose 5% in Water 1,000 ML IV SCH ×2 (04:32→16:25)
--- NOTE | 2018-03-10 04:38 | PRG ---
DATE OF SERVICE: 03/09/2018 SUBJECTIVE: The patient noted with the following vital signs. OBJECTIVE: VITAL SIGNS: Afebrile with temperature 98.8, pulse 96, respiration rate of 14, O2 sat 99%, blood pre ssure 121/77. HEENT: Unremarkable. CARDIOVASCULAR: First and heart sounds were heard. RESPIRATORY: Clear to auscultation. DIGESTIVE: Revealed a distended abdomen. EXTREMITIES: No peripheral edema. SKIN: No new gross rash. LYMPHATICS: No peripheral lymphadenopathy. LABORATORY INVESTIGATIONS: Significant for sodium of 147, creatinine down to 1.6. IMPRESSION: 1. Hyponatremia in the context of free-water deficit. 2. Acute on chronic kidney disease, improving. 3. High-grade bowel obstruction. PLAN: 1. The patient needs free water in addition to the TPN. 2. Further management to be dependent on the clinical course.
[2018-03-10 04:52] LABS: #Basophils 0.1 thou/uL (0.0-0.2); #Eosinphils 0.2 thou/uL (0.0-0.7); #Lymphocytes 1.5 thou/uL (1.20-3.40); #Monocytes 0.1 thou/uL (0.11-0.59); #Neutrophils 7.5 thou/uL (1.40-6.50); %Basophils 0.7 % (0.0-1.0); %Eosinophils 1.8 % (0.0-10.0); %Lymphocytes 15.7 % (21.0-51.0); %Neutrophils 80.7 % (42.0-75.0); Hemoglobin 12.9 g/dL (14.0-18.0); Mean Corpuscular HGB CONC 31.9 g/dL (32.0-36.0); Mean Corpuscular Hemoglobin 28.4 pg (27.0-31.0); Mean Corpuscular Volume 89.2 fL (78.0-98.0); Mean Platelet Volume 9.5 fL (7.4-10.4); Platelet Count 87 thou/uL (130-400); RBC Distribution Width 14.3 % (11.5-14.5); Red Blood Cell (RBC) Count 4.54 mill/uL (4.70-6.10); White Blood Cell (WBC) Count 9.3 thou/uL (4.8-10.8)
[2018-03-10 05:22] LABS: Anion Gap 12 mmol/L (10-20); BUN (Urea Nitrogen) Less than 4 mg/dL (8.4-25.7); Calc. Creatinine Clearance 48 mL/min (70-130); Calcium 9.8 mg/dL (7.8-10.44); Carbon Dioxide 29 mmol/L (23-31); Cardiac Risk 2.8 (Less than 4.5); Chloride 105 mmol/L (98-107); Cholesterol 130 mg/dl (< 200 Desired); Estimated GFR-MDRD 48; Glucose 261 mg/dL (80-115); HDL Cholesterol 46 mg/dL (>60 Neg Risk); LDL Cholesterol, Calculated 53 mg/dL; Magnesium 3.1 mg/dL (1.6-2.6); Phosphorus 2.9 mg/dL (2.3-4.7); Sodium 142 mmol/L (136-145); Triglycerides 153 mg/dL (Less than 150)
[2018-03-10] MEDS: HumaLOG 300 UNITS/3 ML VIAL SC PRN ×3 (05:22→18:48)
[2018-03-10] MEDS: Enoxaparin Sodium 30 MG/0.3 ML SYRINGE SC SCH (08:12)
[2018-03-10] MEDS: Famotidine/PF 20 mg/2ml Vial SLOW IVP SCH (08:12)
--- NOTE | 2018-03-10 08:50 | PRG ---
DATE OF SERVICE: 03/10/2018 SUBJECTIVE: Mr. Guerra is not any better in terms of his obstruction. He is still having lots of NG output. No bowel function. OBJECTIVE: ABDOMEN: Distended, but no peritoneal signs. VITAL SIGNS: Stable. LABORATORY DATA: His hemoglobin today is 12, his platelet count is 87. His sodium is 142, potassium 4.0. His creatinine is 1.73. ASSESSMENT: Malignant obstruction. PLAN: Palliative resection versus diversion versus bypass tomorrow. Risks, benefits, and alternativ es were discussed. He gives consent. We will do this tomorrow.
--- NOTE | 2018-03-10 11:01 | PDOC.PN ---
- Subjective Encounter Start Date: 03/10/18 Encounter Start Time: 10:58 Feels ok today. Feels a little tight in the abdomen. - Objective Resuscitation Status: Resuscitation Status DNR:Do Not Resuscitate Vital Signs & Weight: Vital Signs (12 hours) Temp Pulse Resp BP Pulse Ox 03/10/18 08:30 98.5 F 115 H 20 141/81 H 98 03/10/18 08:00 98 Weight Admit Weight 186 lb 3 oz Weight 174 lb 3.2 oz I&O: 03/09/18 03/10/18 03/11/18 06:59 06:59 06:59 Intake Total 1995 1859 Output Total 3300 800 Balance -1304 1060 Result Diagrams: 03/10/18 04:30 03/10/18 04:30 Additional Labs: Accuchecks 03/10/18 03/09/18 03/09/18 05:19 20:40 13:39 POC Glucose 266 H 192 H 187 H Phys Exam - Physical Examination Constitutional: NAD Respiratory: no wheezing, no rales, no rhonchi Cardiovascular: RRR, no significant murmur, no rub Gastrointestinal: soft, non-tender, no distention, positive bowel sounds Musculoskeletal: no edema, pulses present Psychiatric: normal affect, A&O x 3 Dx/Plan (1) Colon cancer Code(s): C18.9 - MALIGNANT NEOPLASM OF COLON, UNSPECIFIED Status: Chronic Qualifiers: Colon location: ascending Qualified Code(s): C18.2 - Malignant neoplasm of ascending colon (2) History of pulmonary embolus (PE) Code(s): Z86.711 - PERSONAL HISTORY OF PULMONARY EMBOLISM Status: Chronic Comment: Leela held. On Lovenox. (3) SBO (small bowel obstruction) Code(s): K56.609 - UNSP INTESTNL OBST, UNSP TO PARTIAL VERSUS COMPLETE OBST Status: Acute Comment: Surgery was postponed because he received chemo yesterday. Planned for Saturday. Continue TPN. (4) Abdominal carcinomatosis Code(s): C76.2 - MALIGNANT NEOPLASM OF ABDOMEN Status: Acute Comment: Problematic for surgery. Patient understands the situation. Likely the best case scenario would be an ileostomy, but that may not be possible. - Plan * Continue TPN. Surg tomorrow.
[2018-03-10] MEDS: Fat Emulsion 250 ML, Sodium Acetate 2 mEq/ml 40 MEQ, Sodium Chloride 30 MEQ, Potassium ... IV SCH ×2 (22:49→23:34)
[2018-03-11] MEDS: Dextrose 5% in Water 1,000 ML IV SCH ×2 (02:36→09:00)
[2018-03-11] MEDS: HumaLOG 300 UNITS/3 ML VIAL SC PRN (03:03)
[2018-03-11 04:14] LABS: Anion Gap 15 mmol/L (10-20); BUN (Urea Nitrogen) 32 mg/dL (8.4-25.7); Calc. Creatinine Clearance 51 mL/min (70-130); Calcium 9.3 mg/dL (7.8-10.44); Carbon Dioxide 25 mmol/L (23-31); Cardiac Risk 2.5 (Less than 4.5); Chloride 98 mmol/L (98-107); Cholesterol 101 mg/dl (< 200 Desired); Estimated GFR-MDRD 52; Glucose 464 mg/dL (80-115); HDL Cholesterol 41 mg/dL (>60 Neg Risk); LDL Cholesterol, Calculated 38 mg/dL; Magnesium 2.6 mg/dL (1.6-2.6); Phosphorus 2.9 mg/dL (2.3-4.7); Potassium 4.1 mmol/L (3.5-5.1); Sodium 134 mmol/L (136-145); Triglycerides 111 mg/dL (Less than 150)
[2018-03-11 04:44] LABS: Band 8 % (5-11); Eosinophils 1 % (0-10); Hemoglobin 12.1 g/dL (14.0-18.0); Lymphocytes 5 % (21-51); MDiff Complete? YES; Mean Corpuscular HGB CONC 32.2 g/dL (32.0-36.0); Mean Corpuscular Hemoglobin 28.6 pg (27.0-31.0); Mean Corpuscular Volume 88.7 fL (78.0-98.0); Monocytes 1 % (0-10); Neutrophil 84 % (42-75); PLT Morphology Comment Appears Decreased; Platelet Count 54 thou/uL (130-400); RBC Distribution Width 14.4 % (11.5-14.5); Red Blood Cell (RBC) Count 4.25 mill/uL (4.70-6.10); White Blood Cell (WBC) Count 16.4 thou/uL (4.8-10.8)
[2018-03-11] MEDS: Enoxaparin Sodium 30 MG/0.3 ML SYRINGE SC SCH (08:50)
[2018-03-11 08:53] LABS: Fibrinogen 342 mg/dL (253-463)
[2018-03-11 08:54] LABS: PTT 32.4 SEC (22.9-36.1)
[2018-03-11 08:55] LABS: INR-International Normal Ratio 1.1; Prothrombin Time 14.1 SEC (12.0-14.7)
[2018-03-11] MEDS ORDERED: Sodium Chloride 0.9% 100 ML ONE (09:20)
[2018-03-11] MEDS ORDERED: cefOXitin 2 GM VIAL ONE (09:20)
[2018-03-11 09:29] LABS: FSP-Qualitative ABNORMAL (Normal); FSP-Semiquantitative >=40 & <80 mcg/mL (Less than 5)
[2018-03-11] MEDS ORDERED: Morphine 4 MG/ML VIAL ONE (09:42)
[2018-03-11] MEDS ORDERED: Midazolam HCl 2 mg/2 ml Vial ONE (09:42)
[2018-03-11] MEDS ORDERED: Fentanyl 250 MCG/5 ML VIAL ONE (09:42)
[2018-03-11] MEDS: Famotidine/PF 20 mg/2ml Vial SLOW IVP SCH (11:13)
[2018-03-11] MEDS ORDERED: Fentanyl 100 MCG/2 ML VIAL ONE (12:47)
[2018-03-11] MEDS ORDERED: Naloxone HCl 0.4 mg/ml Vial IV PRN (12:48)
[2018-03-11] MEDS ORDERED: Ondansetron HCl/PF 4 MG/2 ML Vial IVP PRN (12:48)
[2018-03-11] MEDS ORDERED: fentaNYL Citrate/PF 2,000 MCG in Sodium Chloride 0.9% 60 ML IV PRN (12:48)
[2018-03-11] MEDS ORDERED: Promethazine HCl 25 MG/ML VIAL IM PRN (12:48)
[2018-03-11] MEDS ORDERED: Zolpidem Tartrate 5 MG TAB PO PRN (12:48)
[2018-03-11] MEDS ORDERED: Communication Order-Pharmacy FS SCH (13:00)
--- NOTE | 2018-03-11 13:32 | PDOC.PN ---
- Subjective Encounter Start Date: 03/11/18 Encounter Start Time: 13:31 Doing ok post-op. Did receive a diverting ileostomy. still a little groggy. - Objective Resuscitation Status: Resuscitation Status DNR:Do Not Resuscitate Vital Signs & Weight: Vital Signs (12 hours) Temp Pulse Resp BP Pulse Ox 03/11/18 08:00 99 03/11/18 07:39 98.0 F 95 22 H 119/79 99 03/11/18 04:01 98.8 F 123 H 16 118/73 95 Weight Admit Weight 186 lb 3 oz Weight 174 lb 3.2 oz I&O: 03/10/18 03/11/18 03/12/18 06:59 06:59 06:59 Intake Total 1860 4328 Output Total 800 1500 Balance 1060 2828 Result Diagrams: 03/11/18 03:10 03/11/18 03:10 Additional Labs: Accuchecks 03/11/18 03/11/18 03/10/18 05:12 00:02 18:40 POC Glucose 218 H 372 H 350 H Phys Exam - Physical Examination Constitutional: NAD Awake, but drowsy. Respiratory: no wheezing, no rales, no rhonchi, clear to auscultation bilateral Cardiovascular: RRR, no significant murmur, no rub Gastrointestinal: soft, no distention Right ileostomy, left midline incision dressed. Dx/Plan (1) Colon cancer Code(s): C18.9 - MALIGNANT NEOPLASM OF COLON, UNSPECIFIED Status: Chronic Qualifiers: Colon location: ascending Qualified Code(s): C18.2 - Malignant neoplasm of ascending colon (2) History of pulmonary embolus (PE) Code(s): Z86.711 - PERSONAL HISTORY OF PULMONARY EMBOLISM Status: Chronic Comment: Leela held. On Lovenox. (3) SBO (small bowel obstruction) Code(s): K56.609 - UNSP INTESTNL OBST, UNSP TO PARTIAL VERSUS COMPLETE OBST Status: Acute Comment: Diverting Ileostomy today. Await return of bowel function. Continue NGT and TPN til then. (4) Abdominal carcinomatosis Code(s): C76.2 - MALIGNANT NEOPLASM OF ABDOMEN Status: Acute Comment: Problematic for surgery. Patient understands the situation. Likely the best case scenario would be an ileostomy, but that may not be possible. (5) Thrombocytopenia Code(s): D69.6 - THROMBOCYTOPENIA, UNSPECIFIED Status: Acute Comment: Secondary to chemo. Continue to monitor closely. - Plan * .
[2018-03-11] MEDS ORDERED: Acetaminophen 1,000 MG in Premix Bag 1 BAG IVPB PRN (13:44)
[2018-03-11] MEDS ORDERED: Lidocaine 1% PF 5 ML VIAL ONE (14:45)
[2018-03-11] MEDS ORDERED: PHENYLEPHRINE-NS 100 MCG/ML 10 ML SYRINGE ONE (14:45)
[2018-03-11] MEDS ORDERED: Glycopyrrolate 0.2 MG/ML 5 ML SYRINGE ONE (14:45)
[2018-03-11] MEDS ORDERED: Succinylcholine Chloride 20 MG/ML 10 ml SYRINGE FS ONE (14:45)
[2018-03-11] MEDS ORDERED: PROPOFOL 200 MG/20 ML VIAL ONE (14:45)
[2018-03-11] MEDS: Insulin Regular 300 UNITS/3 ML VIAL SC PRN (18:09)
--- NOTE | 2018-03-11 20:31 | PRG ---
DATE OF SERVICE: 03/11/2018 SUBJECTIVE: The patient was seen and examined, noted with the following vital signs. PHYSICAL EXAMINATION: VITAL SIGNS: Afebrile with temperature 98.7, respiratory rate of 16, pulse of 90, blood pressure 110 /71. HEENT: Unremarkable. CARDIOVASCULAR SYSTEM: First and second heart sounds . RESPIRATORY SYSTEM: Clear to auscultation. DIGESTIVE SYSTEM: Revealed a distended abdomen. EXTREMITIES: No peripheral edema. LABORATORY INVESTIGATION: Sodium of 134, BUN of 32, creatinine 1.63. IMPRESSION: 1. Acute on chronic kidney disease, which is much improved. 2. Bowel obstruction, status post dilation yesterday. PLAN: 1. Reduce free water infusion as the patient is non-hyponatremic. 2. Further management will be dependent on the clinical course.
[2018-03-11] MEDS: Fat Emulsion 250 ML, Sodium Acetate 2 mEq/ml 40 MEQ, Sodium Chloride 30 MEQ, Potassium ... IV SCH (22:41)
[2018-03-12] MEDS: Insulin Regular 300 UNITS/3 ML VIAL SC PRN ×4 (00:47→17:31)
[2018-03-12 06:36] LABS: #Eosinphils 0.1 thou/uL (0.0-0.7); #Lymphocytes 0.7 thou/uL (1.20-3.40); #Monocytes 0.1 thou/uL (0.11-0.59); #Neutrophils 2.6 thou/uL (1.40-6.50); %Eosinophils 4.2 % (0.0-10.0); %Lymphocytes 19.2 % (21.0-51.0); %Monocytes 1.8 % (0.0-10.0); %Neutrophils 73.8 % (42.0-75.0); Hemoglobin 11.2 g/dL (14.0-18.0); Mean Corpuscular HGB CONC 30.8 g/dL (32.0-36.0); Mean Corpuscular Hemoglobin 27.1 pg (27.0-31.0); Mean Corpuscular Volume 88.2 fL (78.0-98.0); Mean Platelet Volume 10.2 fL (7.4-10.4); Platelet Count 68 thou/uL (130-400); RBC Distribution Width 14.3 % (11.5-14.5); Red Blood Cell (RBC) Count 4.12 mill/uL (4.70-6.10); White Blood Cell (WBC) Count 3.5 thou/uL (4.8-10.8)
[2018-03-12 07:12] LABS: Anion Gap 10 mmol/L (10-20); BUN (Urea Nitrogen) 27 mg/dL (8.4-25.7); Calc. Creatinine Clearance 54 mL/min (70-130); Calcium 9.1 mg/dL (7.8-10.44); Carbon Dioxide 28 mmol/L (23-31); Cardiac Risk 2.1 (Less than 4.5); Chloride 99 mmol/L (98-107); Cholesterol 83 mg/dl (< 200 Desired); Estimated GFR-MDRD 55; Glucose 399 mg/dL (80-115); HDL Cholesterol 40 mg/dL (>60 Neg Risk); LDL Cholesterol, Calculated 31 mg/dL; Magnesium 2.2 mg/dL (1.6-2.6); Phosphorus 2.1 mg/dL (2.3-4.7); Potassium 4.3 mmol/L (3.5-5.1); Sodium 133 mmol/L (136-145); Triglycerides 61 mg/dL (Less than 150)
[2018-03-12] MEDS: Enoxaparin Sodium 30 MG/0.3 ML SYRINGE SC SCH (08:36)
[2018-03-12] MEDS: Famotidine/PF 20 mg/2ml Vial SLOW IVP SCH (08:36)
[2018-03-12] MEDS ORDERED: Insulin Glargine 30 UNITS in Pre-Filled Syringe 1 EACH SC SCH (13:15)
--- NOTE | 2018-03-12 15:04 | PRG ---
DATE OF SERVICE: 03/12/2018 SUBJECTIVE: Mr. Guerra is tired, but doing well today. He already has significant output in his o stomy. PHYSICAL EXAMINATION: VITAL SIGNS: He is afebrile. His vital signs are stable. ABDOMEN: Less distended and he has occasional bowel sounds. Stool in the bag. The ostomy is pink a nd viable. ASSESSMENT: Postop day #1, diverting loop ileostomy, managing a malignant obstruction in his abdomen . PLAN: Attempt discontinue NG, let him do some clear liquids. I would continue TPN for the next few days.
--- NOTE | 2018-03-12 15:23 | PDOC.PN ---
- Subjective Encounter Start Date: 03/12/18 Encounter Start Time: 15:22 Feels tired. No other complaints. Patient reported to nursing that he is having some trouble getting rest because of visitors. Trying to limit that. - Objective Resuscitation Status: Resuscitation Status DNR:Do Not Resuscitate Vital Signs & Weight: Vital Signs (12 hours) Temp Pulse Resp BP Pulse Ox 03/12/18 04:00 98.9 F 91 20 112/66 96 Weight Admit Weight 186 lb 3 oz Weight 174 lb 3.2 oz I&O: 03/11/18 03/12/18 03/13/18 06:59 06:59 06:59 Intake Total 4328 1140 Output Total 1500 2475 Balance 2828 -5585 Result Diagrams: 03/12/18 06:12 03/12/18 06:12 Additional Labs: Accuchecks 03/12/18 03/12/18 03/12/18 12:26 06:19 00:42 POC Glucose 455 H 401 H 403 H 03/11/18 18:02 POC Glucose 377 H Phys Exam - Physical Examination Constitutional: NAD Respiratory: no wheezing, no rales, no rhonchi, clear to auscultation bilateral Cardiovascular: RRR, no significant murmur, no rub Gastrointestinal: soft, non-tender, no distention, positive bowel sounds Right ileostomy appears to be working well. Musculoskeletal: no edema Psychiatric: normal affect Dx/Plan (1) Colon cancer Code(s): C18.9 - MALIGNANT NEOPLASM OF COLON, UNSPECIFIED Status: Chronic Qualifiers: Colon location: ascending Qualified Code(s): C18.2 - Malignant neoplasm of ascending colon Comment: Had chemo on Saturday. (2) History of pulmonary embolus (PE) Code(s): Z86.711 - PERSONAL HISTORY OF PULMONARY EMBOLISM Status: Chronic Comment: Leela purvis. On Lovenox. (3) SBO (small bowel obstruction) Code(s): K56.609 - UNSP INTESTNL OBST, UNSP TO PARTIAL VERSUS COMPLETE OBST Status: Acute Comment: Diverting Ileostomy. Await return of bowel function. Continue NGT and TPN til then. (4) Abdominal carcinomatosis Code(s): C76.2 - MALIGNANT NEOPLASM OF ABDOMEN Status: Acute (5) Thrombocytopenia Code(s): D69.6 - THROMBOCYTOPENIA, UNSPECIFIED Status: Acute Comment: Secondary to chemo. Continue to monitor closely. Had platelet transfusion due to some oozing at the stoma site. (6) Hyperglycemia Code(s): R73.9 - HYPERGLYCEMIA, UNSPECIFIED Status: Acute Comment: Secondary to TPN. Reduced the Dextrose fluids. Can be stopped if ok with nephrology. Added long acting insulin. He is on aggressive sliding scale. (7) On total parenteral nutrition (TPN) Code(s): Z78.9 - OTHER SPECIFIED HEALTH STATUS Status: Acute - Plan * Above.
[2018-03-12] MEDS: Dextrose 5% in Water 1,000 ML IV SCH (17:50)
--- NOTE | 2018-03-12 19:23 | PRG ---
DATE OF SERVICE: 03/12/2018 The patient noted with the following vital signs. PHYSICAL EXAMINATION: VITAL SIGNS: Temperature 98.9, pulse 91, respiratory rate 20, O2 sat 96%, blood pressure 102/63. HEENT: Unremarkable. CARDIOVASCULAR: First and second heart sounds were heard. RESPIRATORY: Clear to auscultation. DIGESTIVE: Revealed distended abdomen. EXTREMITIES: No peripheral edema. SKIN: No new gross rash. LYMPHATICS: No peripheral lymphadenopathy. IMPRESSION: 1. Acute on chronic kidney disease which seems to be improving. 2. Bowel obstruction, status post diversion ileostomy. 3. Advanced colonic carcinoma. PLAN: 1. We will continue current renal supportive measures. 2. Further management to be dependent on the clinical course.
--- NOTE | 2018-03-12 20:55 | OP ---
DATE OF PROCEDURE: 03/11/2018 PREOPERATIVE DIAGNOSIS: Malignant obstruction abdomen. POSTOPERATIVE DIAGNOSES: Malignant obstruction abdomen. PROCEDURES: Exploratory laparotomy, diverting loop ileostomy. SURGEON: Vitor Benitez M.D. ANESTHESIA: General. ESTIMATED BLOOD LOSS: Minimal. COMPLICATIONS: None. SPECIMEN: None. FINDINGS: The patient has carcinomatosis, mostly in the right upper quadrant in the area of previous right colon anastomosis. There is significant recurrent cancer disease. He has multiple nodules of metastatic adenocarcinoma throughout the mesentery of the small bowel. There were no obvious obstru cting lesions of the small intestine. Decision was made to divert just proximal to the previous anas tomosis with loop ileostomy. There was no obvious gastric outlet obstruction. TECHNIQUE: The patient was taken to the operating room and placed supine on the table. After a gene ral anesthetic was obtained, a Trevino was placed. The abdomen is prepped and draped in a sterile fash ion. Midline incision is made. Cautery dissected down into the abdominal cavity. Small bowel was r un from ligament of Treitz to the right lower quadrant where it could be seen going into an area of r ecurrent hard cancer stuck in the retroperitoneum just proximal to this where a loop of small intesti ne will be brought up for loop ileostomy. He had some omental involvement in the right upper quadran t overlying previous ileocolonic anastomosis. There were multiple mesenteric cancer nodules. There was no obvious obstruction of the small intestine. The gastric outlet was very difficult to evaluate given the amount of carcinomatosis in the omentum in the right upper quadrant. NG tube was felt to be in good position in the stomach. Ellipse of skin taken out in the right lower quadrant and a cruc iate incision was made in the fascia. Muscle splitting incision is made and the loop of the ileum is able to be brought up under no tension held in place using a Angelo. The abdomen is irrigated. Th e midline fascia was closed using #1 PDS from the top and the bottom and tied in the middle. Subcuta neous tissues are irrigated. The skin was closed using 3-0 Vicryl, 4-0 Monocryl, and Dermabond. Nex t, the loop ostomy was matured in the usual fashion using 3-0 Vicryl. Red rubber catheters used as a loop bar and ostomy devices placed. The patient is en route to recovery in stable condition. All i nstrument counts, needle counts, lap counts were correct.
[2018-03-12] MEDS ORDERED: Fat Emulsion 250 ML, Sodium Acetate 2 mEq/ml 40 MEQ, Sodium Chloride 30 MEQ, Potassium ... IV SCH (22:00)
[2018-03-13] MEDS: Insulin Regular 300 UNITS/3 ML VIAL SC PRN ×2 (00:54→06:15)
[2018-03-13 06:32] LABS: Anion Gap 11 mmol/L (10-20); BUN (Urea Nitrogen) 26 mg/dL (8.4-25.7); Calc. Creatinine Clearance 50 mL/min (70-130); Calcium 9.3 mg/dL (7.8-10.44); Carbon Dioxide 28 mmol/L (23-31); Cardiac Risk 2.1 (Less than 4.5); Chloride 96 mmol/L (98-107); Cholesterol 84 mg/dl (< 200 Desired); Estimated GFR-MDRD 50; Glucose 538 mg/dL (80-115); HDL Cholesterol 40 mg/dL (>60 Neg Risk); LDL Cholesterol, Calculated 31 mg/dL; Magnesium 2.1 mg/dL (1.6-2.6); Phosphorus 2.5 mg/dL (2.3-4.7); Potassium 4.4 mmol/L (3.5-5.1); Sodium 131 mmol/L (136-145); Triglycerides 64 mg/dL (Less than 150)
[2018-03-13 06:47] LABS: Hemoglobin 10.5 g/dL (14.0-18.0); Hypochromia SLIGHT = 6-15 cells (100X) (0-5/hpf); Lymphocytes 40 % (21-51); MDiff Complete? YES; Mean Corpuscular HGB CONC 31.2 g/dL (32.0-36.0); Mean Corpuscular Hemoglobin 27.5 pg (27.0-31.0); Mean Corpuscular Volume 88.2 fL (78.0-98.0); Mean Platelet Volume 11.6 fL (7.4-10.4); Monocytes 8 % (0-10); Neutrophil 52 % (42-75); PLT Morphology Comment Appears Decreased; Platelet Count 47 thou/uL (130-400); RBC Distribution Width 14.4 % (11.5-14.5); Red Blood Cell (RBC) Count 3.82 mill/uL (4.70-6.10); White Blood Cell (WBC) Count 2.2 thou/uL (4.8-10.8)
[2018-03-13] MEDS ORDERED: HumaLOG 300 UNITS/3 ML VIAL SC PRN (08:07)
[2018-03-13] MEDS: Enoxaparin Sodium 30 MG/0.3 ML SYRINGE SC SCH (08:14)
[2018-03-13] MEDS: Famotidine/PF 20 mg/2ml Vial SLOW IVP SCH (08:14)
--- NOTE | 2018-03-13 08:33 | PRG ---
DATE OF SERVICE: 03/13/2018 SUBJECTIVE: The patient is feeling well. He got up, took a shower this morning that went well. He has been tolerating clear liquids very well. He has had good output from his stoma. He has no new c omplaints. PHYSICAL EXAMINATION: VITAL SIGNS: T-max 99.0, pulse 106, respirations 20, O2 saturation 97% on room air, BP 113/78. GENERAL APPEARANCE: No distress, quite comfortable in the bed. He is mildly tachycardic after havin g been up to the shower. HEART: Otherwise, regular with no murmurs. LUNGS: Clear bilaterally. ABDOMEN: Soft, nondistended. Right-sided ileostomy with good output. His bowel sounds are slightly diminished still. EXTREMITIES: No edema. LABORATORY DATA: White count 2.2, hemoglobin 10.5, platelets 147. Sodium 131, potassium 4.4, chlori de 96, BUN 26, creatinine 1.68 and glucose 407-538. IMPRESSION AND PLAN: 1. Bowel obstruction secondary to colon cancer and carcinomatosis. The patient is status post a div erting ileostomy. He is doing well, he is tolerating clear liquids and he has good stomal output. 2. Colon cancer with carcinomatosis. The patient had chemotherapy on Saturday. He is continuing to have some challenges with his overall counts, but adequate for the moment. 3. TPN. The patient is having very high blood sugars in spite of aggressive treatment with insulin. He is able now to take clears adequately. We will discontinue the TPN. We will also discontinue t he minimal hydration. He was receiving with D5 as he is now a bit hyponatremic. We will need to con tinue to monitor his electrolytes. 4. Hyponatremia. We will see how the patient responds to discontinuing the TPN and taking nutrition orally. 5. Acute on chronic renal insufficiency. Creatinine appears to be stable around 1.6 as his current baseline. Nephrology following. 6. Hyperglycemia. The patient had severe hyperglycemia secondary to TPN in spite of long-acting and aggressive short-acting insulin sliding scale. We will discontinue the TPN. This could be causing some of his pseudohyponatremia as well. 7. History of pulmonary embolus. We will need to get the patient back on Eliquis at some point. I assessed to be offset by the fact patient has some thrombocytopenia as well. DISPOSITION: Continuing to transition the patient back to oral feeding regimen as his bowel tolerate s. Once he is able to adequately maintain nutrition, blood sugars are controlled and electrolytes ar e stable, he will be ready for discharge.
[2018-03-13] MEDS ORDERED: traMADol HCl 50 MG TAB PO PRN ×2 (09:30)
[2018-03-13] MEDS ORDERED: Morphine 4 MG/ML VIAL SLOW IVP PRN (09:31)
--- NOTE | 2018-03-13 09:32 | PDOC.GSPN ---
Surgery Progress Note: Subj - Subjective Patient reports: no new complaints, tolerating liquids well Surgery Progress Note: Obj - Vital signs Vital signs: Vital Signs - Most Recent Temp Pulse Resp BP Pulse Ox 99.1 F 106 H 20 113/78 97 03/12/18 19:20 03/12/18 19:20 03/12/18 19:20 03/12/18 19:20 03/12/18 19:20 - Physical Exam General: no distress Abdomen: soft, nondistended, appropriately tender Wound: healing well Surgery Progress Note: Results - Labs Result Diagrams: 03/13/18 05:55 03/13/18 05:55 Lab results: Laboratory Results - last 24 hr 03/13/18 03/13/18 03/13/18 00:14 05:52 05:55 WBC RBC Hgb Hct MCV MCH MCHC RDW Plt Count MPV Neutrophils % (Manual) Lymphocytes % (Manual) Monocytes % (Manual) Hypochromia Plt Morphology Comment Sodium 131 L Potassium 4.4 Chloride 96 L Carbon Dioxide 28 Anion Gap 11 BUN 26 H Creatinine 1.68 H Estimated GFR (MDRD) 50 Glucose 538 H POC Glucose 407 H 475 H Calcium 9.3 Phosphorus 2.5 Magnesium 2.1 Prealbumin Triglycerides 64 Cholesterol 84 LDL Cholesterol, Calc 31 HDL Cholesterol 40 Heart Disease Risk Ratio 2.1 03/13/18 03/13/18 05:55 05:55 WBC 2.2 L RBC 3.82 L Hgb 10.5 L Hct 33.7 L MCV 88.2 MCH 27.5 MCHC 31.2 L RDW 14.4 Plt Count 47 L MPV 11.6 H Neutrophils % (Manual) 52 Lymphocytes % (Manual) 40 Monocytes % (Manual) 8 Hypochromia SLIGHT = 6-15 cells Plt Morphology Comment Appears Decreased L Sodium Potassium Chloride Carbon Dioxide Anion Gap BUN Creatinine Estimated GFR (MDRD) Glucose POC Glucose Calcium Phosphorus Magnesium Prealbumin 11.0 L Triglycerides Cholesterol LDL Cholesterol, Calc HDL Cholesterol Heart Disease Risk Ratio Surgery Progress Note: A/P - Problem (1) Colon cancer Current Visit: Yes Code(s): C18.9 - MALIGNANT NEOPLASM OF COLON, UNSPECIFIED Status: Chronic Qualifiers: Colon location: ascending Qualified Code(s): C18.2 - Malignant neoplasm of ascending colon (2) Colonic obstruction Current Visit: Yes Code(s): K56.609 - UNSP INTESTNL OBST, UNSP TO PARTIAL VERSUS COMPLETE OBST Status: Acute - Plan Plan: 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
[2018-03-13] MEDS: HYDROcodone/Acetaminophen 10/325 mg Tablet PO PRN ×2 (13:08→13:12)
--- NOTE | 2018-03-13 18:44 | PRG ---
DATE OF SERVICE: 03/13/2018 SUBJECTIVE: The patient noted with the following vital signs. OBJECTIVE: VITAL SIGNS: Afebrile with temperature O2 sat of 97%, blood pressure 113/78. HEENT: Unremarkable. CARDIOVASCULAR SYSTEM: First and second heart sounds were heard. RESPIRATORY SYSTEM: Clear to auscultation. DIGESTIVE SYSTEM: Revealed evidence of recent ileostomy. EXTREMITIES: No peripheral edema. LABORATORY INVESTIGATION: Showed a sodium of 131, creatinine 1.68, BUN of 26. IMPRESSION: 1. Acute on chronic kidney disease, much improved. 2. Hypernatremia, now resolved and is now hyponatremia. PLAN: Continue current management.
[2018-03-14 04:44] LABS: Anion Gap 15 mmol/L (10-20); BUN (Urea Nitrogen) 32 mg/dL (8.4-25.7); Calc. Creatinine Clearance 47 mL/min (70-130); Calcium 9.5 mg/dL (7.8-10.44); Carbon Dioxide 31 mmol/L (23-31); Cardiac Risk 2.3 (Less than 4.5); Chloride 93 mmol/L (98-107); Cholesterol 98 mg/dl (< 200 Desired); Estimated GFR-MDRD 47; Glucose 144 mg/dL (80-115); HDL Cholesterol 42 mg/dL (>60 Neg Risk); LDL Cholesterol, Calculated 43 mg/dL; Phosphorus 3.3 mg/dL (2.3-4.7); Potassium 4.6 mmol/L (3.5-5.1); Sodium 134 mmol/L (136-145); Triglycerides 64 mg/dL (Less than 150)
[2018-03-14 04:50] LABS: Band 2 % (5-11); Eosinophils 10 % (0-10); Lymphocytes 64 % (21-51); MDiff Complete? YES; Mean Corpuscular HGB CONC 32.3 g/dL (32.0-36.0); Mean Corpuscular Hemoglobin 28.2 pg (27.0-31.0); Mean Corpuscular Volume 87.1 fL (78.0-98.0); Mean Platelet Volume 11.3 fL (7.4-10.4); Neutrophil 24 % (42-75); PLT Morphology Comment Appears Decreased; Platelet Count 41 thou/uL (130-400); RBC Distribution Width 14.4 % (11.5-14.5); Red Blood Cell (RBC) Count 3.89 mill/uL (4.70-6.10); White Blood Cell (WBC) Count 1.1 thou/uL (4.8-10.8)
[2018-03-14] MEDS: Sodium Chloride 0.9% 1,000 ML IV SCH ×3 (08:55→16:38)
[2018-03-14] MEDS: Cefepime 2 GM in Sodium Chloride 0.9% 100 ML IVPB SCH ×2 (08:55→16:38)
--- NOTE | 2018-03-14 09:40 | RAD ---
FRONTAL AND LATERAL IMAGING OF THE CHEST: DATE: 03/14/18. COMPARISON: 06/25/17. HISTORY: Neutropenic fever. FINDINGS: Stable CT injectable right-sided Port-A-Cath noted, distal tip overlying the region of the SVC. No p neumothorax, pleural fluid, focal consolidation, or alveolar edema. Heart and mediastinal contours a ppear within normal limits. IMPRESSION: No focal consolidation or alveolar edema. POS: [facility]
[2018-03-14] MEDS ORDERED: Vancomycin HCl 1.5 GM in Sodium Chloride 0.9% 250 ML 300 ML IVPB SCH (10:00)
[2018-03-14] MEDS: Enoxaparin Sodium 30 MG/0.3 ML SYRINGE SC SCH (10:16)
[2018-03-14] MEDS: Famotidine/PF 20 mg/2ml Vial SLOW IVP SCH (10:16)
--- NOTE | 2018-03-14 11:46 | PDOC.PN ---
- Subjective Encounter Start Date: 03/14/18 Encounter Start Time: 09:00 Subjective: awake, responds to verbal questions -: was confused earlier per staff -: is weak and cant get up per staff - Objective Resuscitation Status: Resuscitation Status DNR:Do Not Resuscitate MAR Reviewed: Yes Vital Signs & Weight: Vital Signs (12 hours) Temp Pulse Resp BP BP Pulse Ox 03/14/18 11:44 97.6 F 120 H 26 H 114/64 95 03/14/18 09:49 98.3 F 63 28 H 91/57 L 03/14/18 07:55 99.6 F 138 H 30 H 94/66 97 03/14/18 03:52 97.8 F 93 20 103/77 96 Weight Admit Weight 186 lb 3 oz Weight 174 lb 3.2 oz I&O: 03/13/18 03/14/18 03/15/18 06:59 06:59 06:59 Intake Total 2018.4 2380 Output Total 3275 2350 Balance -1256.6 30 Result Diagrams: 03/14/18 04:13 03/14/18 04:13 Additional Labs: Accuchecks 03/14/18 03/14/18 03/13/18 11:33 05:33 23:46 POC Glucose 173 H 154 H 114 H 03/13/18 03/13/18 18:10 11:24 POC Glucose 102 281 H Phys Exam - Physical Examination HEENT: PERRLA, moist MMs Neck: no JVD, supple Respiratory: no wheezing, no rales Cardiovascular: RRR, no significant murmur Gastrointestinal: soft ileostomy has serosanguinous material Musculoskeletal: no edema, pulses present Neurological: non-focal, moves all 4 limbs Dx/Plan (1) SBO (small bowel obstruction) Code(s): K56.609 - UNSP INTESTNL OBST, UNSP TO PARTIAL VERSUS COMPLETE OBST Status: Acute Comment: Diverting Ileostomy. Await return of bowel function. (2) History of pulmonary embolus (PE) Code(s): Z86.711 - PERSONAL HISTORY OF PULMONARY EMBOLISM Status: Chronic Comment: Leela purvis. (3) Colon cancer Code(s): C18.9 - MALIGNANT NEOPLASM OF COLON, UNSPECIFIED Status: Chronic Qualifiers: Colon location: ascending Qualified Code(s): C18.2 - Malignant neoplasm of ascending colon Comment: Had chemo on Saturday. (4) Physical deconditioning Code(s): R53.81 - OTHER MALAISE Status: Acute (5) Neutropenia Code(s): D70.9 - NEUTROPENIA, UNSPECIFIED Status: Acute Qualifiers: Neutropenia type: secondary to cancer chemotherapy Qualified Code(s): D70.1 - Agranulocytosis secondary to cancer chemotherapy; T45.1X5A - Adverse effect of antineoplastic and immunosuppressive drugs, initial encounter (6) NU (acute kidney injury) Code(s): N17.9 - ACUTE KIDNEY FAILURE, UNSPECIFIED Status: Acute (7) CKD (chronic kidney disease) stage 3, GFR 30-59 ml/min Code(s): N18.3 - CHRONIC KIDNEY DISEASE, STAGE 3 (MODERATE) Status: Chronic - Plan is on cefepime and vanc -: neutropenia sec to chemo, per onc adv -: ileostomy function awaited -: gentle iv hydration, overall prognosis guarded with adv cancer -: on full liq diet, off tpn * . Review of Systems - Medications/Allergies Allergies/Adverse Reactions: Allergies Allergy/AdvReac Type Severity Reaction Status Date / Time hydroxyzine Allergy Verified 03/03/18 20:06 Medications: Current Medications Acetaminophen (Tylenol) 650 mg NM Q4H PRN PRN Reason: Headache/Fever or Pain Hydrocodone Bitart/Acetaminophen ([place] 10/325) 1 tab PO Q4H PRN PRN Reason: Moderate Pain (4-6) Hydrocodone Bitart/Acetaminophen ([place] 10/325) 2 tab PO Q4H PRN PRN Reason: Severe Pain (7-10) Last Admin: 03/13/18 13:12 Dose: 2 tab Dextrose/Water (Dextrose 50%) 25 gm SLOW IVP PRN PRN PRN Reason: Hypoglycemia Enoxaparin Sodium (Lovenox) 30 mg SC 0900 [facility]SE Last Admin: 03/14/18 10:16 Dose: Not Given Famotidine (Pepcid) 20 mg SLOW IVP 0900 AGNES Last Admin: 03/14/18 10:16 Dose: 20 mg Glucagon (Glucagon) 1 mg IM PRN PRN PRN Reason: Hypoglycemia Dextrose/Water (D5w) 1,000 mls @ 0 mls/hr IV .Q0M PRN PRN Reason: Hypoglycemia Cefepime HCl 2 gm/ Sodium (Chloride) 100 mls @ 200 mls/hr IVPB 0100,0900,1700 [facility] Last Admin: 03/14/18 08:55 Dose: 100 mls Vancomycin HCl 1.5 gm/ Sodium (Chloride) 300 mls @ 200 mls/hr IVPB 1000 [facility] Last Admin: 03/14/18 10:12 Dose: 300 mls Vancomycin HCl 1.25 gm/ Sodium (Chloride) 250 mls @ 166.667 mls/hr IVPB 1000 [facility] Sodium Chloride (Normal Saline 0.9%) 1,000 mls @ 70 mls/hr IV .[id number] [facility] Stop: 03/15/18 16:19 Insulin Human Lispro (Humalog) 0 units SC .MILD SLIDING SCALE PRN PRN Reason: Mild Correctional Scale Last Admin: 03/13/18 13:03 Dose: 4 unit Morphine Sulfate (Morphine) 2 mg SLOW IVP Q4H PRN PRN Reason: Mild-Moderate Pain (1-5) Morphine Sulfate (Morphine) 4 mg SLOW IVP Q4H PRN PRN Reason: Moderate to Severe Pain (6-10) Naloxone HCl (Narcan) 0.2 mg IV Q5MIN PRN PRN Reason: Opiate Reversal Ondansetron HCl (Zofran) 4 mg IVP Q6H PRN PRN Reason: Nausea/Vomiting Promethazine HCl (Phenergan) 12.5 mg IM Q4H PRN PRN Reason: Nausea/Vomiting Sodium Chloride (Flush - Normal Saline) 10 ml IVF Q12HR [facility] Last Admin: 03/14/18 08:56 Dose: 10 ml Sodium Chloride (Flush - Normal Saline) 10 ml IVF PRN PRN PRN Reason: Saline Flush Tramadol HCl (Ultram) 50 mg PO Q6H PRN PRN Reason: Mild Pain (1-3) Tramadol HCl (Ultram) 100 mg PO Q6H PRN PRN Reason: Moderate Pain (4-6) Zolpidem Tartrate (Ambien) 5 mg PO HSPRN PRN PRN Reason: Insomnia
--- NOTE | 2018-03-14 15:31 | PRG ---
DATE OF SERVICE: 03/14/2018 SUBJECTIVE: Mr. Guerra tolerated the full liquids. OBJECTIVE: VITAL SIGNS: Afebrile, T-max 99.6, pulse is faster today. His blood pressure is okay. ABDOMEN: Minimally distended, but active bowel sounds. He is neutropenic. ASSESSMENT: Postoperative diverting ileostomy. PLAN: Can start to advance diet as tolerated. I do not think he is ready to advance yet, but over t he weekend, in my absence, if he wanted to advance to GI soft that would be fine. For now, he just p refers full liquid diet. Dr. Wise covering for me this weekend.
--- NOTE | 2018-03-14 20:04 | PRG ---
DATE OF SERVICE: 03/14/2018 SUBJECTIVE: The patient was noted with the following vital signs. OBJECTIVE: VITAL SIGNS: Afebrile with temperature 97.6, pulse 63, respiratory rate of 28, blood pressure 114/64 . HEENT: Unremarkable. CARDIOVASCULAR SYSTEM: First and second heart sounds were heard. RESPIRATORY SYSTEM: Clear to auscultation. DIGESTIVE SYSTEM: Revealed a distended abdomen. EXTREMITIES: No peripheral edema. LABORATORY INVESTIGATION: Showed a sodium of 134, creatinine of 1.77. IMPRESSION AND PLAN: 1. Acute on chronic kidney disease, seems to have improved back to baseline chronic kidney disease. 2. Further management to be dependent on the clinical course.
[2018-03-15] MEDS: Cefepime 2 GM in Sodium Chloride 0.9% 100 ML IVPB SCH ×3 (00:23→17:11)
[2018-03-15] MEDS: Sodium Chloride 0.9% 1,000 ML IV SCH ×2 (03:21→17:11)
[2018-03-15 05:45] LABS: Hemoglobin 9.8 g/dL (14.0-18.0); Mean Corpuscular HGB CONC 32.1 g/dL (32.0-36.0); Mean Corpuscular Hemoglobin 27.6 pg (27.0-31.0); Mean Corpuscular Volume 85.9 fL (78.0-98.0); Mean Platelet Volume 12.1 fL (7.4-10.4); Platelet Count 28 thou/uL (130-400); RBC Distribution Width 14.4 % (11.5-14.5); Red Blood Cell (RBC) Count 3.55 mill/uL (4.70-6.10); White Blood Cell (WBC) Count 0.7 thou/uL (4.8-10.8)
[2018-03-15 06:00] LABS: Anion Gap 14 mmol/L (10-20); BUN (Urea Nitrogen) 34 mg/dL (8.4-25.7); Calc. Creatinine Clearance 50 mL/min (70-130); Calcium 8.8 mg/dL (7.8-10.44); Carbon Dioxide 27 mmol/L (23-31); Cardiac Risk 4.1 (Less than 4.5); Chloride 94 mmol/L (98-107); Cholesterol 90 mg/dl (< 200 Desired); Estimated GFR-MDRD 51; Glucose 117 mg/dL (80-115); HDL Cholesterol 22 mg/dL (>60 Neg Risk); LDL Cholesterol, Calculated 43 mg/dL; Magnesium 2.1 mg/dL (1.6-2.6); Phosphorus 2.5 mg/dL (2.3-4.7); Potassium 3.8 mmol/L (3.5-5.1); Sodium 131 mmol/L (136-145); Triglycerides 124 mg/dL (Less than 150)
[2018-03-15 06:22] LABS: Hypochromia MODERATE=16-30 cells (100X) (0-5/hpf); Lymphocytes 70 % (21-51); MDiff Complete? YES; Monocytes 10 % (0-10); Neutrophil 20 % (42-75); PLT Morphology Comment Appears Decreased
[2018-03-15] MEDS ORDERED: Sodium Chloride 0.9% 500 ML IV SCH (08:30)
[2018-03-15] MEDS: Famotidine/PF 20 mg/2ml Vial SLOW IVP SCH (08:49)
[2018-03-15] MEDS: Enoxaparin Sodium 30 MG/0.3 ML SYRINGE SC SCH (10:36)
[2018-03-15] MEDS: Vancomycin HCl 1.25 GM in Sodium Chloride 0.9% 250 ML 250 ML IVPB SCH (10:37)
--- NOTE | 2018-03-15 12:40 | PDOC.PN ---
- Subjective Encounter Start Date: 03/15/18 Encounter Start Time: 10:15 Subjective: is more alert and oriented today -: at bedside -: is tolerating oral diet - Objective Resuscitation Status: Resuscitation Status DNR:Do Not Resuscitate MAR Reviewed: Yes Vital Signs & Weight: Vital Signs (12 hours) Temp Pulse Resp BP Pulse Ox 03/15/18 12:00 98.0 F 113 H 24 H 91/64 98 03/15/18 08:00 99.4 F 57 L 22 H 89/62 L 100 03/15/18 03:32 98.4 F 95 24 H 103/59 L 97 Weight Admit Weight 186 lb 3 oz Weight 174 lb 3.2 oz I&O: 03/14/18 03/15/18 03/16/18 06:59 06:59 06:59 Intake Total 2380 4180 Output Total 2350 3975 Balance 30 205 Result Diagrams: 03/15/18 05:29 03/15/18 05:29 Additional Labs: Accuchecks 03/15/18 03/14/18 03/14/18 11:31 23:21 18:00 POC Glucose 119 H 120 H 113 H Phys Exam - Physical Examination HEENT: PERRLA, moist MMs Neck: no JVD, supple Respiratory: no wheezing, no rales Cardiovascular: RRR, no significant murmur Gastrointestinal: soft ileostomy has serosang liquid Musculoskeletal: no edema, pulses present Neurological: non-focal, moves all 4 limbs Dx/Plan (1) Bacteremia due to Escherichia coli Code(s): R78.81 - BACTEREMIA Status: Acute (2) SBO (small bowel obstruction) Code(s): K56.609 - UNSP INTESTNL OBST, UNSP TO PARTIAL VERSUS COMPLETE OBST Status: Acute Comment: Diverting Ileostomy. Await return of bowel function. (3) History of pulmonary embolus (PE) Code(s): Z86.711 - PERSONAL HISTORY OF PULMONARY EMBOLISM Status: Chronic Comment: Leela purvis. (4) Colon cancer Code(s): C18.9 - MALIGNANT NEOPLASM OF COLON, UNSPECIFIED Status: Chronic Qualifiers: Colon location: ascending Qualified Code(s): C18.2 - Malignant neoplasm of ascending colon Comment: Had chemo on Saturday. (5) Physical deconditioning Code(s): R53.81 - OTHER MALAISE Status: Acute (6) Neutropenia Code(s): D70.9 - NEUTROPENIA, UNSPECIFIED Status: Acute Qualifiers: Neutropenia type: secondary to cancer chemotherapy Qualified Code(s): D70.1 - Agranulocytosis secondary to cancer chemotherapy; T45.1X5A - Adverse effect of antineoplastic and immunosuppressive drugs, initial encounter (7) NU (acute kidney injury) Code(s): N17.9 - ACUTE KIDNEY FAILURE, UNSPECIFIED Status: Acute (8) CKD (chronic kidney disease) stage 3, GFR 30-59 ml/min Code(s): N18.3 - CHRONIC KIDNEY DISEASE, STAGE 3 (MODERATE) Status: Chronic (9) Pancytopenia Code(s): D61.818 - OTHER PANCYTOPENIA Status: Acute - Plan is on cefepime and vanc -: await full culture results -: is on liq diet -: is more alert and oriented this am than yesterday -: gentle iv fluids, has pancytopenia due to chemo * . Review of Systems - Medications/Allergies Allergies/Adverse Reactions: Allergies Allergy/AdvReac Type Severity Reaction Status Date / Time hydroxyzine Allergy Verified 03/03/18 20:06 Medications: Current Medications Acetaminophen (Tylenol) 650 mg MT Q4H PRN PRN Reason: Headache/Fever or Pain Hydrocodone Bitart/Acetaminophen ([place] 10/325) 1 tab PO Q4H PRN PRN Reason: Moderate Pain (4-6) Hydrocodone Bitart/Acetaminophen ([place] 10/325) 2 tab PO Q4H PRN PRN Reason: Severe Pain (7-10) Last Admin: 03/13/18 13:12 Dose: 2 tab Dextrose/Water (Dextrose 50%) 25 gm SLOW IVP PRN PRN PRN Reason: Hypoglycemia Enoxaparin Sodium (Lovenox) 30 mg SC 0900 [facility]ES Last Admin: 03/15/18 10:36 Dose: Not Given Famotidine (Pepcid) 20 mg SLOW IVP 0900 [facility]ES Last Admin: 03/15/18 08:49 Dose: 20 mg Glucagon (Glucagon) 1 mg IM PRN PRN PRN Reason: Hypoglycemia Dextrose/Water (D5w) 1,000 mls @ 0 mls/hr IV .Q0M PRN PRN Reason: Hypoglycemia Cefepime HCl 2 gm/ Sodium (Chloride) 100 mls @ 200 mls/hr IVPB 0100,0900,1700 [facility] Last Admin: 03/15/18 08:49 Dose: 100 mls Vancomycin HCl 1.25 gm/ Sodium (Chloride) 250 mls @ 166.667 mls/hr IVPB 1000 [facility] Last Admin: 03/15/18 10:37 Dose: 250 mls Sodium Chloride (Normal Saline 0.9%) 1,000 mls @ 70 mls/hr IV .[id number] [facility] Stop: 03/15/18 16:19 Last Admin: 03/15/18 03:21 Dose: 1,000 mls Insulin Human Lispro (Humalog) 0 units SC .MILD SLIDING SCALE PRN PRN Reason: Mild Correctional Scale Last Admin: 03/13/18 13:03 Dose: 4 unit Morphine Sulfate (Morphine) 2 mg SLOW IVP Q4H PRN PRN Reason: Mild-Moderate Pain (1-5) Morphine Sulfate (Morphine) 4 mg SLOW IVP Q4H PRN PRN Reason: Moderate to Severe Pain (6-10) Naloxone HCl (Narcan) 0.2 mg IV Q5MIN PRN PRN Reason: Opiate Reversal Ondansetron HCl (Zofran) 4 mg IVP Q6H PRN PRN Reason: Nausea/Vomiting Promethazine HCl (Phenergan) 12.5 mg IM Q4H PRN PRN Reason: Nausea/Vomiting Sodium Chloride (Flush - Normal Saline) 10 ml IVF Q12HR [facility] Last Admin: 03/15/18 08:49 Dose: 10 ml Sodium Chloride (Flush - Normal Saline) 10 ml IVF PRN PRN PRN Reason: Saline Flush Tramadol HCl (Ultram) 50 mg PO Q6H PRN PRN Reason: Mild Pain (1-3) Tramadol HCl (Ultram) 100 mg PO Q6H PRN PRN Reason: Moderate Pain (4-6) Zolpidem Tartrate (Ambien) 5 mg PO HSPRN PRN PRN Reason: Insomnia
[2018-03-15] MEDS: HYDROcodone/Acetaminophen 10/325 mg Tablet PO PRN (19:35)
--- NOTE | 2018-03-15 23:04 | PRG ---
DATE OF SERVICE: 03/15/2018 SUBJECTIVE: The patient was noted with the following vital signs. OBJECTIVE: VITAL SIGNS: Afebrile, temperature 99.2, pulse 84, respiratory rate of 22, O2 sat of 97%, blood pres sure 110/55. HEENT: Unremarkable. CARDIOVASCULAR SYSTEM: First and second heart sounds were heard. RESPIRATORY SYSTEM: Clear to auscultation. DIGESTIVE SYSTEM: Revealed a distended abdomen. EXTREMITIES: No peripheral edema. IMPRESSION: 1. Acute on chronic kidney disease, which seems to have improved. 2. Bowel obstruction in the context of a colonic CA, status post diversion ileostomy. PLAN: 1. Continue current management including renal supportive measures. 2. Continue to observe the sodium level. 3. Further management to be dependent on the clinical course.
[2018-03-16] MEDS: Cefepime 2 GM in Sodium Chloride 0.9% 100 ML IVPB SCH ×3 (00:59→17:26)
[2018-03-16] MEDS: Sodium Chloride 0.9% 1,000 ML IV SCH ×2 (04:11→19:18)
[2018-03-16 04:39] LABS: Hemoglobin 9.5 g/dL (14.0-18.0); Mean Corpuscular HGB CONC 31.8 g/dL (32.0-36.0); Mean Corpuscular Hemoglobin 27.6 pg (27.0-31.0); Mean Corpuscular Volume 86.7 fL (78.0-98.0); Mean Platelet Volume 12.1 fL (7.4-10.4); Platelet Count 33 thou/uL (130-400); RBC Distribution Width 14.5 % (11.5-14.5); Red Blood Cell (RBC) Count 3.43 mill/uL (4.70-6.10); White Blood Cell (WBC) Count 0.9 thou/uL (4.8-10.8)
[2018-03-16 04:52] LABS: Anion Gap 13 mmol/L (10-20); BUN (Urea Nitrogen) 29 mg/dL (8.4-25.7); Calc. Creatinine Clearance 60 mL/min (70-130); Calcium 9.1 mg/dL (7.8-10.44); Carbon Dioxide 24 mmol/L (23-31); Chloride 100 mmol/L (98-107); Estimated GFR-MDRD 62; Glucose 106 mg/dL (80-115); Potassium 3.7 mmol/L (3.5-5.1); Sodium 133 mmol/L (136-145)
[2018-03-16 04:54] LABS: Band 2 % (5-11); Eosinophils 4 % (0-10); Lymphocytes 80 % (21-51); MDiff Complete? YES; Monocytes 6 % (0-10); Neutrophil 8 % (42-75); PLT Morphology Comment Appears Decreased
[2018-03-16] MEDS: Enoxaparin Sodium 30 MG/0.3 ML SYRINGE SC SCH (08:59)
[2018-03-16] MEDS: Famotidine/PF 20 mg/2ml Vial SLOW IVP SCH (09:04)
[2018-03-16] MEDS: HYDROcodone/Acetaminophen 10/325 mg Tablet PO PRN (09:23)
[2018-03-16 10:09] LABS: Vancomycin, Trough 11.6 ug/mL
[2018-03-16] MEDS: Vancomycin HCl 1 GM in Premix Bag 1 BAG IVPB SCH ×2 (11:32→22:33)
[2018-03-16] MEDS: Vancomycin HCl 1.25 GM in Sodium Chloride 0.9% 250 ML 250 ML IVPB SCH (12:27)
--- NOTE | 2018-03-16 12:33 | PDOC.PN ---
- Subjective Encounter Start Date: 03/16/18 Encounter Start Time: 10:00 Subjective: awake, at bedside -: is tolerating oral diet -: no nausea, has been able to stand now but no walking yet - Objective Resuscitation Status: Resuscitation Status DNR:Do Not Resuscitate MAR Reviewed: Yes Vital Signs & Weight: Weight Admit Weight 186 lb 3 oz Weight 174 lb 3.2 oz I&O: 03/15/18 03/16/18 03/17/18 06:59 06:59 06:59 Intake Total 4180 2965 Output Total 3975 4250 Balance 205 -1285 Result Diagrams: 03/16/18 04:30 03/16/18 04:30 Phys Exam - Physical Examination HEENT: PERRLA, moist MMs Neck: no JVD, supple Respiratory: no wheezing, no rales Cardiovascular: RRR, no significant murmur Gastrointestinal: soft, non-tender, positive bowel sounds ileostomy has bilious liq Musculoskeletal: pulses present Neurological: non-focal, moves all 4 limbs Dx/Plan (1) Bacteremia due to Escherichia coli Code(s): R78.81 - BACTEREMIA Status: Acute (2) SBO (small bowel obstruction) Code(s): K56.609 - UNSP INTESTNL OBST, UNSP TO PARTIAL VERSUS COMPLETE OBST Status: Acute Comment: Diverting Ileostomy. (3) History of pulmonary embolus (PE) Code(s): Z86.711 - PERSONAL HISTORY OF PULMONARY EMBOLISM Status: Chronic Comment: Leela purvis. (4) Colon cancer Code(s): C18.9 - MALIGNANT NEOPLASM OF COLON, UNSPECIFIED Status: Chronic Qualifiers: Colon location: ascending Qualified Code(s): C18.2 - Malignant neoplasm of ascending colon Comment: Had chemo on Saturday. (5) Physical deconditioning Code(s): R53.81 - OTHER MALAISE Status: Acute (6) Neutropenia Code(s): D70.9 - NEUTROPENIA, UNSPECIFIED Status: Acute Qualifiers: Neutropenia type: secondary to cancer chemotherapy Qualified Code(s): D70.1 - Agranulocytosis secondary to cancer chemotherapy; T45.1X5A - Adverse effect of antineoplastic and immunosuppressive drugs, initial encounter (7) NU (acute kidney injury) Code(s): N17.9 - ACUTE KIDNEY FAILURE, UNSPECIFIED Status: Acute (8) CKD (chronic kidney disease) stage 3, GFR 30-59 ml/min Code(s): N18.3 - CHRONIC KIDNEY DISEASE, STAGE 3 (MODERATE) Status: Chronic (9) Pancytopenia Code(s): D61.818 - OTHER PANCYTOPENIA Status: Acute - Plan is on cefepime and vanc -: gentle iv hydration, still has pancytopenia -: to start to ambulate from today -: diet will be adv today -: e.coli is sensitive to all antibiotics, ?from uti * . Review of Systems - Medications/Allergies Allergies/Adverse Reactions: Allergies Allergy/AdvReac Type Severity Reaction Status Date / Time hydroxyzine Allergy Verified 03/03/18 20:06 Medications: Current Medications Acetaminophen (Tylenol) 650 mg [place] Q4H PRN PRN Reason: Headache/Fever or Pain Hydrocodone Bitart/Acetaminophen ([place] 10/325) 1 tab PO Q4H PRN PRN Reason: Moderate Pain (4-6) Last Admin: 03/15/18 19:35 Dose: 1 tab Hydrocodone Bitart/Acetaminophen ([place] 10/325) 2 tab PO Q4H PRN PRN Reason: Severe Pain (7-10) Last Admin: 03/16/18 09:23 Dose: 2 tab Dextrose/Water (Dextrose 50%) 25 gm SLOW IVP PRN PRN PRN Reason: Hypoglycemia Enoxaparin Sodium (Lovenox) 30 mg SC 0900 [facility] Last Admin: 03/16/18 08:59 Dose: Not Given Famotidine (Pepcid) 20 mg SLOW IVP 0900 [facility] Last Admin: 03/16/18 09:04 Dose: 20 mg Glucagon (Glucagon) 1 mg IM PRN PRN PRN Reason: Hypoglycemia Dextrose/Water (D5w) 1,000 mls @ 0 mls/hr IV .Q0M PRN PRN Reason: Hypoglycemia Cefepime HCl 2 gm/ Sodium (Chloride) 100 mls @ 200 mls/hr IVPB 0100,0900,1700 [facility] Last Admin: 03/16/18 09:03 Dose: 100 mls Sodium Chloride (Normal Saline 0.9%) 1,000 mls @ 75 mls/hr IV .[id number] [facility] Last Admin: 03/16/18 04:11 Dose: 1,000 mls Vancomycin HCl 1 gm/ Device 200 mls @ 200 mls/hr IVPB 1100,2300 [facility] Last Admin: 03/16/18 11:32 Dose: 200 mls Insulin Human Lispro (Humalog) 0 units SC .MILD SLIDING SCALE PRN PRN Reason: Mild Correctional Scale Last Admin: 03/13/18 13:03 Dose: 4 unit Morphine Sulfate (Morphine) 2 mg SLOW IVP Q4H PRN PRN Reason: Mild-Moderate Pain (1-5) Morphine Sulfate (Morphine) 4 mg SLOW IVP Q4H PRN PRN Reason: Moderate to Severe Pain (6-10) Naloxone HCl (Narcan) 0.2 mg IV Q5MIN PRN PRN Reason: Opiate Reversal Ondansetron HCl (Zofran) 4 mg IVP Q6H PRN PRN Reason: Nausea/Vomiting Promethazine HCl (Phenergan) 12.5 mg IM Q4H PRN PRN Reason: Nausea/Vomiting Sodium Chloride (Flush - Normal Saline) 10 ml IVF Q12HR [facility] Last Admin: 03/16/18 09:04 Dose: 10 ml Sodium Chloride (Flush - Normal Saline) 10 ml IVF PRN PRN PRN Reason: Saline Flush Tramadol HCl (Ultram) 50 mg PO Q6H PRN PRN Reason: Mild Pain (1-3) Tramadol HCl (Ultram) 100 mg PO Q6H PRN PRN Reason: Moderate Pain (4-6) Zolpidem Tartrate (Ambien) 5 mg PO HSPRN PRN PRN Reason: Insomnia
[2018-03-16] MEDS ORDERED: Diphenoxylate HCl/Atropine Tablet PO SCH (21:30)
--- NOTE | 2018-03-16 23:01 | PDOC.GSPN ---
Surgery Progress Note: Subj - Subjective Narrative: Patient is feeling better today. He is able to be a little bit more. His ostomy is functioning well but the output is high at about a liter per 12 hour shift. His pain is controlled although he still has abdominal pain mostly in the upper abdomen than he is water mangle tender in that area. His incisions are healing well and his ileostomy looks healthy. I'm starting him on some Lomotil to try to decrease the ileostomy output to prevent dehydration. He is doing well from a surgical standpoint. Surgery Progress Note: Obj - Vital signs Vital signs: Vital Signs - Most Recent Temp Pulse Resp BP Pulse Ox 98.4 F 109 H 20 99/62 98 03/16/18 19:20 03/16/18 19:20 03/16/18 19:20 03/16/18 19:20 03/16/18 19:20 Surgery Progress Note: Results - Labs Result Diagrams: 03/16/18 04:30 03/16/18 04:30
[2018-03-17] MEDS: Cefepime 2 GM in Sodium Chloride 0.9% 100 ML IVPB SCH ×3 (00:52→17:13)
[2018-03-17] MEDS: Sodium Chloride 0.9% 1,000 ML IV SCH ×2 (00:57→18:36)
[2018-03-17 06:02] LABS: Hemoglobin 8.4 g/dL (14.0-18.0); Mean Corpuscular HGB CONC 32.4 g/dL (32.0-36.0); Mean Corpuscular Hemoglobin 28.1 pg (27.0-31.0); Mean Corpuscular Volume 86.8 fL (78.0-98.0); Mean Platelet Volume 11.5 fL (7.4-10.4); Platelet Count 44 thou/uL (130-400); RBC Distribution Width 14.2 % (11.5-14.5); White Blood Cell (WBC) Count 0.8 thou/uL (4.8-10.8)
[2018-03-17 06:05] LABS: Anion Gap 12 mmol/L (10-20); BUN (Urea Nitrogen) 24 mg/dL (8.4-25.7); Calc. Creatinine Clearance 66 mL/min (70-130); Calcium 8.8 mg/dL (7.8-10.44); Carbon Dioxide 23 mmol/L (23-31); Chloride 100 mmol/L (98-107); Estimated GFR-MDRD 70; Glucose 133 mg/dL (80-115); Potassium 3.4 mmol/L (3.5-5.1); Sodium 132 mmol/L (136-145)
[2018-03-17 06:29] LABS: Hypochromia MODERATE=16-30 cells (100X) (0-5/hpf); Lymphocytes 44 % (21-51); MDiff Complete? YES; Monocytes 8 % (0-10); Neutrophil 48 % (42-75); PLT Morphology Comment Appears Decreased
[2018-03-17] MEDS: Diphenoxylate HCl/Atropine Tablet PO SCH ×2 (09:17→20:14)
[2018-03-17] MEDS: Famotidine/PF 20 mg/2ml Vial SLOW IVP SCH (09:18)
[2018-03-17] MEDS: Enoxaparin Sodium 30 MG/0.3 ML SYRINGE SC SCH (09:18)
[2018-03-17] MEDS: Vancomycin HCl 1 GM in Premix Bag 1 BAG IVPB SCH (12:23)
--- NOTE | 2018-03-17 13:50 | PRG ---
DATE OF SERVICE: 03/17/2018 Mr. Guerra has no complaints. He is tolerating solid food. Pain is controlled. PHYSICAL EXAMINATION: ABDOMEN: Soft. His incision is healing well. His output in his bag is not recorded since 8, although it looks like they may be recording his ostomy output under gastric drainage?. ASSESSMENT: Status post diverting loop ileostomy for malignant obstruction. PLAN: He has already been started on Lomotil. We will titrate that up as needed.
--- NOTE | 2018-03-17 22:02 | PRG ---
DATE OF SERVICE: 03/17/2018 SUBJECTIVE: Patient noted with the following vital signs. OBJECTIVE: VITAL SIGNS: Afebrile with temperature 97.6, pulse 101, respiratory of 18, O2 sat 96%-100%, blood pr essure 93/58. HEENT: Unremarkable. CARDIOVASCULAR SYSTEM: First and second heart sounds were heard. RESPIRATORY SYSTEM: Clear to auscultation. DIGESTIVE SYSTEM: Revealed a distended abdomen. EXTREMITIES: No peripheral edema. SKIN: No new gross rash. LYMPHATICS: No peripheral lymphadenopathy. LABORATORY INVESTIGATION: Revealed a white count of 800. Chemistry showed sodium of 132, potassium of 3.4. IMPRESSION: 1. Hyponatremia. 2. Hypokalemia. 3. Acute kidney injury, which seems to have improved. PLAN: 1. Continue current renal supportive measures. 2. Replete potassium. 3. Further management to be dependent on the clinical course.
[2018-03-17 22:20] LABS: Vancomycin, Trough 23.9 ug/mL
[2018-03-18 06:48] LABS: Hemoglobin 8.1 g/dL (14.0-18.0); Mean Corpuscular HGB CONC 31.2 g/dL (32.0-36.0); Mean Corpuscular Hemoglobin 27.1 pg (27.0-31.0); Mean Corpuscular Volume 86.8 fL (78.0-98.0); Mean Platelet Volume 10.7 fL (7.4-10.4); Platelet Count 64 thou/uL (130-400); RBC Distribution Width 14.5 % (11.5-14.5); White Blood Cell (WBC) Count 1.2 thou/uL (4.8-10.8)
[2018-03-18 07:02] LABS: Anion Gap 11 mmol/L (10-20); BUN (Urea Nitrogen) 17 mg/dL (8.4-25.7); Calc. Creatinine Clearance 72 mL/min (70-130); Calcium 8.3 mg/dL (7.8-10.44); Carbon Dioxide 23 mmol/L (23-31); Chloride 103 mmol/L (98-107); Estimated GFR-MDRD 77; Glucose 110 mg/dL (80-115); Potassium 3.5 mmol/L (3.5-5.1); Sodium 133 mmol/L (136-145)
[2018-03-18 07:50] LABS: Band 5 % (5-11); Eosinophils 9 % (0-10); Hypochromia SLIGHT = 6-15 cells (100X) (0-5/hpf); Lymphocytes 55 % (21-51); MDiff Complete? YES; Monocytes 15 % (0-10); Myelocyte 1 % (0-0); Neutrophil 14 % (42-75); PLT Morphology Comment Appears Decreased; Polychromasia SLIGHT = 2-3 cells (100X) (0-2/hpf); Reactive Lymphocytes 1 % (0-10); Target Cells SLIGHT = 2-5 cells (100X) (0-1/hpf)
[2018-03-18] MEDS: Cefepime 2 GM in Sodium Chloride 0.9% 100 ML IVPB SCH ×3 (08:44→17:25)
[2018-03-18] MEDS: Diphenoxylate HCl/Atropine Tablet PO SCH ×3 (08:45→20:24)
[2018-03-18] MEDS: Famotidine/PF 20 mg/2ml Vial SLOW IVP SCH (08:45)
[2018-03-18] MEDS ORDERED: Vancomycin HCl 750 MG in Sodium Chloride 0.9% 250 ML 250 ML IVPB SCH (10:00)
[2018-03-18] MEDS: Enoxaparin Sodium 30 MG/0.3 ML SYRINGE SC SCH (11:33)
[2018-03-18] MEDS: Sodium Chloride 0.9% 1,000 ML IV SCH (11:45)
[2018-03-18] MEDS: Vancomycin HCl 750 MG in Sodium Chloride 0.9% 250 ML 250 ML IVPB SCH ×2 (11:47→23:44)
--- NOTE | 2018-03-18 13:14 | PDOC.GSPN ---
Surgery Progress Note: Subj - Subjective Patient reports: no new complaints, tolerating a regular diet (c/o teeth pain) Surgery Progress Note: Obj - Vital signs Vital signs: Vital Signs - Most Recent Temp Pulse Resp BP Pulse Ox 97.5 F L 89 20 95/56 L 99 03/18/18 09:14 03/18/18 09:14 03/18/18 09:14 03/18/18 09:14 03/18/18 09:14 - Physical Exam General: no distress Respiratory: clear to auscultation Abdomen: soft, non tender, nondistended Wound: healing well, ostomy/colostomy (mostly liquid stool) Surgery Progress Note: Results - Labs Result Diagrams: 03/18/18 06:31 03/18/18 06:31 Lab results: Laboratory Results - last 24 hr 03/18/18 03/18/18 06:31 06:31 WBC 1.2 L RBC 3.00 L Hgb 8.1 L Hct 26.0 L MCV 86.8 MCH 27.1 MCHC 31.2 L RDW 14.5 Plt Count 64 L MPV 10.7 H Neutrophils % (Manual) 14 L Band Neuts % (Manual) 5 Lymphocytes % (Manual) 55 H Reactive Lymphs % 1 Monocytes % (Manual) 15 H Eosinophils % (Manual) 9 Myelocytes % 1 H Neutrophils # Not Reportable Lymphocytes # Not Reportable Hypochromia SLIGHT = 6-15 cells Plt Morphology Comment Appears Decreased L Polychromasia SLIGHT = 2-3 cells Target Cells SLIGHT = 2-5 cells Sodium 133 L Potassium 3.5 Chloride 103 Carbon Dioxide 23 Anion Gap 11 BUN 17 Creatinine 1.16 Estimated GFR (MDRD) 77 Glucose 110 Calcium 8.3 Surgery Progress Note: A/P - Problem (1) Colon cancer Current Visit: Yes Code(s): C18.9 - MALIGNANT NEOPLASM OF COLON, UNSPECIFIED Status: Chronic Qualifiers: Colon location: ascending Qualified Code(s): C18.2 - Malignant neoplasm of ascending colon (2) Colonic obstruction Current Visit: Yes Code(s): K56.609 - UNSP INTESTNL OBST, UNSP TO PARTIAL VERSUS COMPLETE OBST Status: Acute - Plan Plan: Ostomy output still very watery. -increase lomotil dose
--- NOTE | 2018-03-18 15:38 | PDOC.PN ---
- Subjective Encounter Start Date: 03/17/18 Encounter Start Time: 13:00 Subjective: no abd pain or nausea -: at bedside -: tolerating oral diet - Objective Resuscitation Status: Resuscitation Status DNR:Do Not Resuscitate MAR Reviewed: Yes Vital Signs & Weight: Vital Signs (12 hours) Temp Pulse Resp BP BP Pulse Ox 03/18/18 09:14 97.5 F L 89 20 95/56 L 99 03/18/18 04:44 98.0 F 91 20 96/57 L 99 Weight Admit Weight 186 lb 3 oz Weight 174 lb 3.2 oz I&O: 03/17/18 03/18/18 03/19/18 06:59 06:59 06:59 Intake Total 2720 2810 Output Total 3325 1875 Balance -605 935 Result Diagrams: 03/18/18 06:31 03/18/18 06:31 Phys Exam - Physical Examination HEENT: PERRLA, moist MMs Neck: no JVD, supple Respiratory: no wheezing, no rales Cardiovascular: RRR, no significant murmur Gastrointestinal: soft, non-tender, positive bowel sounds ileostomy+ Musculoskeletal: no edema, pulses present Neurological: non-focal, moves all 4 limbs Psychiatric: normal affect, A&O x 3 Dx/Plan (1) Bacteremia due to Escherichia coli Code(s): R78.81 - BACTEREMIA Status: Acute (2) SBO (small bowel obstruction) Code(s): K56.609 - UNSP INTESTNL OBST, UNSP TO PARTIAL VERSUS COMPLETE OBST Status: Acute Comment: Diverting Ileostomy. (3) History of pulmonary embolus (PE) Code(s): Z86.711 - PERSONAL HISTORY OF PULMONARY EMBOLISM Status: Chronic Comment: Leela purvis. (4) Colon cancer Code(s): C18.9 - MALIGNANT NEOPLASM OF COLON, UNSPECIFIED Status: Chronic Qualifiers: Colon location: ascending Qualified Code(s): C18.2 - Malignant neoplasm of ascending colon Comment: Had chemo on Saturday. (5) Physical deconditioning Code(s): R53.81 - OTHER MALAISE Status: Acute (6) Neutropenia Code(s): D70.9 - NEUTROPENIA, UNSPECIFIED Status: Acute Qualifiers: Neutropenia type: secondary to cancer chemotherapy Qualified Code(s): D70.1 - Agranulocytosis secondary to cancer chemotherapy; T45.1X5A - Adverse effect of antineoplastic and immunosuppressive drugs, initial encounter (7) NU (acute kidney injury) Code(s): N17.9 - ACUTE KIDNEY FAILURE, UNSPECIFIED Status: Resolved (8) CKD (chronic kidney disease) stage 3, GFR 30-59 ml/min Code(s): N18.3 - CHRONIC KIDNEY DISEASE, STAGE 3 (MODERATE) Status: Chronic (9) Pancytopenia Code(s): D61.818 - OTHER PANCYTOPENIA Status: Acute - Plan is on cefepime and vanc -: e.coli is sensitive to all antibiotics -: is on lomotil to thicken his ileostomy output -: encouraged to ambulate in hallway * . Review of Systems - Medications/Allergies Allergies/Adverse Reactions: Allergies Allergy/AdvReac Type Severity Reaction Status Date / Time hydroxyzine Allergy Verified 03/03/18 20:06 Medications: Current Medications Acetaminophen (Tylenol) 650 mg [place] Q4H PRN PRN Reason: Headache/Fever or Pain Hydrocodone Bitart/Acetaminophen ([place] 10/325) 1 tab PO Q4H PRN PRN Reason: Moderate Pain (4-6) Last Admin: 03/15/18 19:35 Dose: 1 tab Hydrocodone Bitart/Acetaminophen ([place] 10/325) 2 tab PO Q4H PRN PRN Reason: Severe Pain (7-10) Last Admin: 03/16/18 09:23 Dose: 2 tab Dextrose/Water (Dextrose 50%) 25 gm SLOW IVP PRN PRN PRN Reason: Hypoglycemia Diphenoxylate HCl/Atropine (Lomotil) 2 tab PO TID [facility] Last Admin: 03/18/18 15:19 Dose: 2 tab Enoxaparin Sodium (Lovenox) 30 mg SC 09 [facility] Last Admin: 03/18/18 11:33 Dose: Not Given Famotidine (Pepcid) 20 mg SLOW IVP 09 [facility] Last Admin: 03/18/18 08:45 Dose: 20 mg Glucagon (Glucagon) 1 mg IM PRN PRN PRN Reason: Hypoglycemia Dextrose/Water (D5w) 1,000 mls @ 0 mls/hr IV .Q0M PRN PRN Reason: Hypoglycemia Cefepime HCl 2 gm/ Sodium (Chloride) 100 mls @ 200 mls/hr IVPB 0100,0900,1700 [facility] Last Admin: 03/18/18 08:44 Dose: 100 mls Sodium Chloride (Normal Saline 0.9%) 1,000 mls @ 75 mls/hr IV .[id number] [facility] Last Admin: 03/18/18 11:45 Dose: 1,000 mls Vancomycin HCl 750 mg/ Sodium (Chloride) 250 mls @ 250 mls/hr IVPB 1200,2359 [facility] Last Admin: 03/18/18 11:47 Dose: 250 mls Insulin Human Lispro (Humalog) 0 units SC .MILD SLIDING SCALE PRN PRN Reason: Mild Correctional Scale Last Admin: 03/13/18 13:03 Dose: 4 unit Morphine Sulfate (Morphine) 2 mg SLOW IVP Q4H PRN PRN Reason: Mild-Moderate Pain (1-5) Morphine Sulfate (Morphine) 4 mg SLOW IVP Q4H PRN PRN Reason: Moderate to Severe Pain (6-10) Naloxone HCl (Narcan) 0.2 mg IV Q5MIN PRN PRN Reason: Opiate Reversal Ondansetron HCl (Zofran) 4 mg IVP Q6H PRN PRN Reason: Nausea/Vomiting Promethazine HCl (Phenergan) 12.5 mg IM Q4H PRN PRN Reason: Nausea/Vomiting Sodium Chloride (Flush - Normal Saline) 10 ml IVF Q12HR [facility] Last Admin: 03/18/18 11:33 Dose: Not Given Sodium Chloride (Flush - Normal Saline) 10 ml IVF PRN PRN PRN Reason: Saline Flush Tramadol HCl (Ultram) 50 mg PO Q6H PRN PRN Reason: Mild Pain (1-3) Tramadol HCl (Ultram) 100 mg PO Q6H PRN PRN Reason: Moderate Pain (4-6) Zolpidem Tartrate (Ambien) 5 mg PO HSPRN PRN PRN Reason: Insomnia
--- NOTE | 2018-03-18 15:40 | PDOC.PN ---
- Subjective Encounter Start Date: 03/18/18 Encounter Start Time: 14:00 Subjective: no sob or abd pain -: has been ambulating in hallway -: feels better - Objective Resuscitation Status: Resuscitation Status DNR:Do Not Resuscitate MAR Reviewed: Yes Vital Signs & Weight: Vital Signs (12 hours) Temp Pulse Resp BP BP Pulse Ox 03/18/18 09:14 97.5 F L 89 20 95/56 L 99 03/18/18 04:44 98.0 F 91 20 96/57 L 99 Weight Admit Weight 186 lb 3 oz Weight 174 lb 3.2 oz I&O: 03/17/18 03/18/18 03/19/18 06:59 06:59 06:59 Intake Total 2720 2810 Output Total 3325 1875 Balance -605 935 Result Diagrams: 03/18/18 06:31 03/18/18 06:31 Phys Exam - Physical Examination HEENT: PERRLA, moist MMs Neck: no JVD, supple Respiratory: no wheezing, no rales Cardiovascular: RRR, no significant murmur Gastrointestinal: soft, non-tender, positive bowel sounds ileostomy has brown liq stool Musculoskeletal: no edema, pulses present Neurological: non-focal, moves all 4 limbs Psychiatric: A&O x 3 Dx/Plan (1) Bacteremia due to Escherichia coli Code(s): R78.81 - BACTEREMIA Status: Acute (2) SBO (small bowel obstruction) Code(s): K56.609 - UNSP INTESTNL OBST, UNSP TO PARTIAL VERSUS COMPLETE OBST Status: Acute Comment: Diverting Ileostomy. (3) History of pulmonary embolus (PE) Code(s): Z86.711 - PERSONAL HISTORY OF PULMONARY EMBOLISM Status: Chronic Comment: Leela purvis. (4) Colon cancer Code(s): C18.9 - MALIGNANT NEOPLASM OF COLON, UNSPECIFIED Status: Chronic Qualifiers: Colon location: ascending Qualified Code(s): C18.2 - Malignant neoplasm of ascending colon Comment: Had chemo on Saturday. (5) Physical deconditioning Code(s): R53.81 - OTHER MALAISE Status: Acute (6) Neutropenia Code(s): D70.9 - NEUTROPENIA, UNSPECIFIED Status: Acute Qualifiers: Neutropenia type: secondary to cancer chemotherapy Qualified Code(s): D70.1 - Agranulocytosis secondary to cancer chemotherapy; T45.1X5A - Adverse effect of antineoplastic and immunosuppressive drugs, initial encounter (7) NU (acute kidney injury) Code(s): N17.9 - ACUTE KIDNEY FAILURE, UNSPECIFIED Status: Resolved (8) CKD (chronic kidney disease) stage 3, GFR 30-59 ml/min Code(s): N18.3 - CHRONIC KIDNEY DISEASE, STAGE 3 (MODERATE) Status: Chronic (9) Pancytopenia Code(s): D61.818 - OTHER PANCYTOPENIA Status: Acute - Plan may switch to oral quinolones if ok with onc -: may dc vanc if ok with onc -: dc plan per onc/gen surg advice -: is ambulating well, is comfortable taking him home -: has arranged for ileostomy bag/change education * . Review of Systems - Medications/Allergies Allergies/Adverse Reactions: Allergies Allergy/AdvReac Type Severity Reaction Status Date / Time hydroxyzine Allergy Verified 03/03/18 20:06 Medications: Current Medications Acetaminophen (Tylenol) 650 mg [place] Q4H PRN PRN Reason: Headache/Fever or Pain Hydrocodone Bitart/Acetaminophen ([place] 10/325) 1 tab PO Q4H PRN PRN Reason: Moderate Pain (4-6) Last Admin: 03/15/18 19:35 Dose: 1 tab Hydrocodone Bitart/Acetaminophen ([place] 10/325) 2 tab PO Q4H PRN PRN Reason: Severe Pain (7-10) Last Admin: 03/16/18 09:23 Dose: 2 tab Dextrose/Water (Dextrose 50%) 25 gm SLOW IVP PRN PRN PRN Reason: Hypoglycemia Diphenoxylate HCl/Atropine (Lomotil) 2 tab PO TID [facility] Last Admin: 03/18/18 15:19 Dose: 2 tab Enoxaparin Sodium (Lovenox) 30 mg SC 09 [facility] Last Admin: 03/18/18 11:33 Dose: Not Given Famotidine (Pepcid) 20 mg SLOW IVP 09 [facility] Last Admin: 03/18/18 08:45 Dose: 20 mg Glucagon (Glucagon) 1 mg IM PRN PRN PRN Reason: Hypoglycemia Dextrose/Water (D5w) 1,000 mls @ 0 mls/hr IV .Q0M PRN PRN Reason: Hypoglycemia Cefepime HCl 2 gm/ Sodium (Chloride) 100 mls @ 200 mls/hr IVPB 0100,0900,1700 [facility] Last Admin: 03/18/18 08:44 Dose: 100 mls Sodium Chloride (Normal Saline 0.9%) 1,000 mls @ 75 mls/hr IV .[id number] [facility] Last Admin: 03/18/18 11:45 Dose: 1,000 mls Vancomycin HCl 750 mg/ Sodium (Chloride) 250 mls @ 250 mls/hr IVPB 1200,2359 [facility] Last Admin: 03/18/18 11:47 Dose: 250 mls Insulin Human Lispro (Humalog) 0 units SC .MILD SLIDING SCALE PRN PRN Reason: Mild Correctional Scale Last Admin: 03/13/18 13:03 Dose: 4 unit Morphine Sulfate (Morphine) 2 mg SLOW IVP Q4H PRN PRN Reason: Mild-Moderate Pain (1-5) Morphine Sulfate (Morphine) 4 mg SLOW IVP Q4H PRN PRN Reason: Moderate to Severe Pain (6-10) Naloxone HCl (Narcan) 0.2 mg IV Q5MIN PRN PRN Reason: Opiate Reversal Ondansetron HCl (Zofran) 4 mg IVP Q6H PRN PRN Reason: Nausea/Vomiting Promethazine HCl (Phenergan) 12.5 mg IM Q4H PRN PRN Reason: Nausea/Vomiting Sodium Chloride (Flush - Normal Saline) 10 ml IVF Q12HR [facility] Last Admin: 03/18/18 11:33 Dose: Not Given Sodium Chloride (Flush - Normal Saline) 10 ml IVF PRN PRN PRN Reason: Saline Flush Tramadol HCl (Ultram) 50 mg PO Q6H PRN PRN Reason: Mild Pain (1-3) Tramadol HCl (Ultram) 100 mg PO Q6H PRN PRN Reason: Moderate Pain (4-6) Zolpidem Tartrate (Ambien) 5 mg PO HSPRN PRN PRN Reason: Insomnia
[2018-03-19] MEDS: Cefepime 2 GM in Sodium Chloride 0.9% 100 ML IVPB SCH (01:15)
[2018-03-19] MEDS: Sodium Chloride 0.9% 1,000 ML IV SCH (02:59)
[2018-03-19 04:24] LABS: Anion Gap 10 mmol/L (10-20); BUN (Urea Nitrogen) 11 mg/dL (8.4-25.7); Calc. Creatinine Clearance 76 mL/min (70-130); Calcium 8.4 mg/dL (7.8-10.44); Carbon Dioxide 23 mmol/L (23-31); Chloride 106 mmol/L (98-107); Estimated GFR-MDRD 82; Glucose 107 mg/dL (80-115); Potassium 3.5 mmol/L (3.5-5.1); Sodium 135 mmol/L (136-145)
[2018-03-19 04:27] LABS: Hemoglobin 7.5 g/dL (14.0-18.0); Hypochromia SLIGHT = 6-15 cells (100X) (0-5/hpf); Lymphocytes 42 % (21-51); MDiff Complete? YES; Mean Corpuscular HGB CONC 32.2 g/dL (32.0-36.0); Mean Corpuscular Volume 86.8 fL (78.0-98.0); Mean Platelet Volume 9.9 fL (7.4-10.4); Monocytes 16 % (0-10); Neutrophil 42 % (42-75); PLT Morphology Comment Appears Decreased; Platelet Count 78 thou/uL (130-400); RBC Distribution Width 14.7 % (11.5-14.5); Red Blood Cell (RBC) Count 2.67 mill/uL (4.70-6.10); Target Cells SLIGHT = 2-5 cells (100X) (0-1/hpf); White Blood Cell (WBC) Count 2.1 thou/uL (4.8-10.8)
--- NOTE | 2018-03-19 09:59 | PDOC.PN ---
- Subjective Encounter Start Date: 03/19/18 Encounter Start Time: 09:45 Subjective: feels better, tolerating oral diet -: is ambulating in hallway -: at bedside - Objective Resuscitation Status: Resuscitation Status DNR:Do Not Resuscitate MAR Reviewed: Yes Vital Signs & Weight: Vital Signs (12 hours) Temp Pulse Resp BP Pulse Ox 03/19/18 04:17 98.0 F 84 18 113/56 L 98 03/18/18 23:49 98.2 F 80 18 90/51 L 100 Weight Admit Weight 186 lb 3 oz Weight 174 lb 3.2 oz I&O: 03/18/18 03/19/18 03/20/18 06:59 06:59 06:59 Intake Total 2810 4060 Output Total 1875 Balance 935 4060 Result Diagrams: 03/19/18 03:46 03/19/18 03:46 Phys Exam - Physical Examination HEENT: PERRLA, moist MMs Neck: no JVD, supple Respiratory: no wheezing, no rales Cardiovascular: RRR, no significant murmur Gastrointestinal: soft, no distention, positive bowel sounds ileostomy has semisolid stools Musculoskeletal: no edema, pulses present Neurological: non-focal, moves all 4 limbs Psychiatric: normal affect, A&O x 3 Dx/Plan (1) Bacteremia due to Escherichia coli Code(s): R78.81 - BACTEREMIA Status: Acute (2) SBO (small bowel obstruction) Code(s): K56.609 - UNSP INTESTNL OBST, UNSP TO PARTIAL VERSUS COMPLETE OBST Status: Acute Comment: Diverting Ileostomy. (3) History of pulmonary embolus (PE) Code(s): Z86.711 - PERSONAL HISTORY OF PULMONARY EMBOLISM Status: Chronic Comment: Leela purvis. (4) Colon cancer Code(s): C18.9 - MALIGNANT NEOPLASM OF COLON, UNSPECIFIED Status: Chronic Qualifiers: Colon location: ascending Qualified Code(s): C18.2 - Malignant neoplasm of ascending colon Comment: Had chemo on Saturday. (5) Physical deconditioning Code(s): R53.81 - OTHER MALAISE Status: Acute (6) Neutropenia Code(s): D70.9 - NEUTROPENIA, UNSPECIFIED Status: Acute Qualifiers: Neutropenia type: secondary to cancer chemotherapy Qualified Code(s): D70.1 - Agranulocytosis secondary to cancer chemotherapy; T45.1X5A - Adverse effect of antineoplastic and immunosuppressive drugs, initial encounter (7) NU (acute kidney injury) Code(s): N17.9 - ACUTE KIDNEY FAILURE, UNSPECIFIED Status: Resolved (8) CKD (chronic kidney disease) stage 3, GFR 30-59 ml/min Code(s): N18.3 - CHRONIC KIDNEY DISEASE, STAGE 3 (MODERATE) Status: Chronic (9) Pancytopenia Code(s): D61.818 - OTHER PANCYTOPENIA Status: Acute - Plan hemostable -: may dc home if ok with -: has signed ooh dnr * . Review of Systems - Medications/Allergies Allergies/Adverse Reactions: Allergies Allergy/AdvReac Type Severity Reaction Status Date / Time hydroxyzine Allergy Verified 03/03/18 20:06 Medications: Current Medications Acetaminophen (Tylenol) 650 mg [place] Q4H PRN PRN Reason: Headache/Fever or Pain Hydrocodone Bitart/Acetaminophen ([place] 10/325) 1 tab PO Q4H PRN PRN Reason: Moderate Pain (4-6) Last Admin: 03/15/18 19:35 Dose: 1 tab Hydrocodone Bitart/Acetaminophen ([place] 10/325) 2 tab PO Q4H PRN PRN Reason: Severe Pain (7-10) Last Admin: 03/16/18 09:23 Dose: 2 tab Dextrose/Water (Dextrose 50%) 25 gm SLOW IVP PRN PRN PRN Reason: Hypoglycemia Diphenoxylate HCl/Atropine (Lomotil) 2 tab PO TID [facility] Last Admin: 03/18/18 20:24 Dose: 2 tab Enoxaparin Sodium (Lovenox) 30 mg SC 0900 [facility] Last Admin: 03/18/18 11:33 Dose: Not Given Glucagon (Glucagon) 1 mg IM PRN PRN PRN Reason: Hypoglycemia Dextrose/Water (D5w) 1,000 mls @ 0 mls/hr IV .Q0M PRN PRN Reason: Hypoglycemia Insulin Human Lispro (Humalog) 0 units SC .MILD SLIDING SCALE PRN PRN Reason: Mild Correctional Scale Last Admin: 03/13/18 13:03 Dose: 4 unit Levofloxacin (Levaquin) 500 mg PO 0600 [facility] Morphine Sulfate (Morphine) 2 mg SLOW IVP Q4H PRN PRN Reason: Mild-Moderate Pain (1-5) Sodium Chloride (Flush - Normal Saline) 10 ml IVF Q12HR [facility] Last Admin: 03/18/18 20:26 Dose: 10 ml Sodium Chloride (Flush - Normal Saline) 10 ml IVF PRN PRN PRN Reason: Saline Flush Tramadol HCl (Ultram) 50 mg PO Q6H PRN PRN Reason: Mild Pain (1-3) Tramadol HCl (Ultram) 100 mg PO Q6H PRN PRN Reason: Moderate Pain (4-6)
[2018-03-19] MEDS: Diphenoxylate HCl/Atropine Tablet PO SCH ×2 (10:26→15:15)
[2018-03-19] MEDS: Enoxaparin Sodium 30 MG/0.3 ML SYRINGE SC SCH (10:27)
[2018-03-19 10:30] VITALS: TEMP 98.1
[2018-03-19 11:16] VITALS: BP 96/71
--- NOTE | 2018-03-19 14:32 | DIS ---
DATE OF ADMISSION: 03/03/2018 DATE OF DISCHARGE: 03/19/2018 DISCHARGE DISPOSITION: To home. PRIMARY DISCHARGE DIAGNOSES: Small-bowel obstruction due to colon cancer with multiple mets, status post diverting ileostomy; neutropenic fever with Escherichia coli bacteremia, resolving; deconditioni ng; history of pulmonary embolus; acute kidney injury on arrival, resolved; pancytopenia due to chemo therapy. PROCEDURES DONE DURING HOSPITALIZATION: The patient has had abdominal and pelvic CAT scan done on day of admission, which showed high grade small-bowel obstruction. There is also evidence for mult iple peritoneal soft tissue masses throughout the abdomen and pelvis, most prominent in the right lat eral abdomen. There is also a peritoneal and omental metastasis. Abdominal lymph nodes in the right and left pericardial fat. A CAT scan also showed decompressed distal small bowel and colon except f or dilated fecal filled rectum. Had diverting ileostomy with exploratory laparotomy done on 03/11/[address] Benitez. Blood cultures x2 grew E. coli sensitive to all antibiotics. Discharge white cou nt is 2.1 with H&H of 7 and 23, platelet count 78. Lowest counts were on the with a white count of 0.7 and platelet count of 28. Discharge BUN and creatinine is 11 and 1.1. Admitting BUN and cre atinine were 55 and 2.8 on the . CEA levels were 1.30. Lipase 24. Albumin was 5 on admission. DISCHARGE MEDICATIONS: Levaquin 500 mg p.o. daily for another 6 days, Lomotil 2 tabs p.o. 3 times da karla for increasing consistency of ileostomy drainage. ALLERGIES: HYDROXYZINE. INPATIENT CONSULTS: Dr. Benitez for General Surgery, Dr. Jaquez for Oncology. BRIEF COURSE DURING HOSPITALIZATION: The patient initially got admitted for abdominal distention and pain. His initial CAT scan was suspicious for high grade small-bowel obstruction. The patient also had multiple mets and has not had known history of cecal cancer with multiple mets. Conservative ma nagement was tried initially, but none of it worked including chemo. The patient finally had to have a diverting ileostomy done for comfort and prolonged small-bowel obstruction. Small-bowel obstructi on has responded well and has had good stool output through the ileostomy. Due to his chemotherapy, the patient became pancytopenic and developed fever and E. coli bacteremia. He was on broad-spectrum antibiotics, which has been transitioned to Levaquin based on cultures. Prior to discharge, he is a mbulating in the hallway and is eating better. He will be shortly discharged home if cleared by Dr. Benitez today. Please see a [id number] documentation on [employer] for the day of discharge. The pa isaiah is planning to come off of chemotherapy and we will discuss with Dr. Mujica, his oncologist i n the outpatient setting. He wants to be a DNR and the necessary paperwork has been completed on the floor now. Please see a [id number] documentation on [employer] for the day of discharge.
[2018-03-19] MEDS: HYDROcodone/Acetaminophen 10/325 mg Tablet PO PRN (15:22)
== END 2018-03-19 15:42 | disposition hospice, home (50) | DRG 329 ==
LOC: ERS 09:21 → T4-A 16:50 → ONC 03-06 12:42
PROVIDERS: ADMIT Internal Medicine; ATTEND Internal Medicine
PROC: 3E0336Z Introduction of Nutritional Substance into Peripheral Vein, Percutaneous Approach (ICD-10-PCS; 2018-03-09)
PROC: 0D1B0Z4 Bypass Ileum to Cutaneous, Open Approach (ICD-10-PCS; principal; 2018-03-11)
PROC: 30233N1 Transfusion of Nonautologous Red Blood Cells into Peripheral Vein, Percutaneous Approach (ICD-10-PCS; 2018-03-11)
DX: K56.609 Unspecified intestinal obstruction, unspecified as to partial versus complete obstruction (principal); D61.810 Antineoplastic chemotherapy induced pancytopenia; C18.9 Malignant neoplasm of colon, unspecified; C78.6 Secondary malignant neoplasm of retroperitoneum and peritoneum; E87.1 Hypo-osmolality and hyponatremia; N17.9 Acute kidney failure, unspecified; E87.0 Hyperosmolality and hypernatremia; R78.81 Bacteremia; E46 Unspecified protein-calorie malnutrition; Z86.711 Personal history of pulmonary embolism; Z79.01 Long term (current) use of anticoagulants; Z87.891 Personal history of nicotine dependence; Z66 Do not resuscitate; E87.6 Hypokalemia; R73.9 Hyperglycemia, unspecified; B96.20 Unspecified Escherichia coli [E. coli] as the cause of diseases classified elsewhere; N18.3 Chronic kidney disease, stage 3 (moderate); Z68.23 Body mass index [BMI] 23.0-23.9, adult
CPT/HCPCS: 36415; 36416; 36430; 71046; 74177; 74250; 80048; 80053; 80061; 80202; 81003; 81015; 82378; 83615; 83690; 83735; 84100; 84134; 84550; 85025; 85362; 85384; 85610; 85730; 86850; 86900; 86901; 87040; 87077; 87149; 87186; 96374; 96377; A4216; A4217; G8978-GP-CK; G8979-GP-CJ; G8996-GN-CI; G8997-GN-CI; J0131; J0461; J0692; J0694; J1100; J1642; J1650; J1815; J2001; J2250; J2270; J2405; J2469; J2505; J2704; J3010; J3370; J3475; J3480; J7050; J9190; J9206; P9035; S0028

== ENCOUNTER 2018-05-03 06:24 | Emergency (ER) | payer BC, OTHER ==
[2018-05-03] MEDS ORDERED: Morphine 4 MG/ML VIAL ONE (07:03)
[2018-05-03 07:20] LABS: ALT (SGPT) 22 U/L (8-55); AST (SGOT) 67 U/L (5-34); Albumin 3.7 g/dL (3.4-4.8); Alkaline Phosphatase 162 U/L (40-150); Anion Gap 16 mmol/L (10-20); BUN (Urea Nitrogen) 11 mg/dL (8.4-25.7); Bilirubin, Total 1.4 mg/dL (0.2-1.2); Calc. Creatinine Clearance 0 mL/min (70-130); Calcium 10.2 mg/dL (7.8-10.44); Carbon Dioxide 18 mmol/L (23-31); Chloride 103 mmol/L (98-107); Estimated GFR-MDRD 68; Globulin 4.8 g/dL (2.4-3.5); Glucose 110 mg/dL (80-115); Potassium 4.2 mmol/L (3.5-5.1); Protein, Total 8.5 g/dL (5.8-8.1); Sodium 133 mmol/L (136-145)
[2018-05-03 07:29] LABS: #Lymphocytes 0.6 thou/uL (1.20-3.40); #Monocytes 0.9 thou/uL (0.11-0.59); #Neutrophils 11.2 thou/uL (1.40-6.50); %Basophils 0.1 % (0.0-1.0); %Eosinophils 0.2 % (0.0-10.0); %Monocytes 6.8 % (0.0-10.0); %Neutrophils 87.9 % (42.0-75.0); Hemoglobin 9.3 g/dL (14.0-18.0); Hypochromia SLIGHT = 6-15 cells (100X) (0-5/hpf); MDiff Complete? YES; Mean Corpuscular HGB CONC 29.3 g/dL (32.0-36.0); Mean Corpuscular Hemoglobin 24.2 pg (27.0-31.0); Mean Corpuscular Volume 82.5 fL (78.0-98.0); Mean Platelet Volume 8.1 fL (7.4-10.4); Platelet Count 312 thou/uL (130-400); Poikilocytosis SLIGHT = 6-15 cells (100X) (0-5/hpf); RBC Distribution Width 17.9 % (11.5-14.5); Red Blood Cell (RBC) Count 3.86 mill/uL (4.70-6.10); Target Cells MODERATE= 6-15 cells (100X) (0-1/hpf); White Blood Cell (WBC) Count 12.8 thou/uL (4.8-10.8)
[2018-05-03 09:01] LABS: Bilirubin Small (Negative); Blood, Urine Negative (Negative); Clarity CLOUDY (Clear); Glucose, Urine (Dipstick) Negative (Negative); Leukocyte Negative (Negative); Nitrite Negative (Negative); Protein, Urine (Dipstick) 30 mg/dL (Neg-Trace); Specific Gravity, Urine 1.015 (1.002-1.036); Urobilinogen 0.2 mg/dL (0.2-1.0); pH, Urine 5.5 (5.0-9.0)
[2018-05-03 09:03] LABS: Bacteria/HPF None Seen HPF (None Seen); Squamous Epithelial 0-3 HPF (0-3); WBC/HPF 0-3 HPF (0-3)
[2018-05-03 09:05] LABS: Pathc Cast-AUWi Flag 9.88 (0-2.49)
[2018-05-03 09:10] LABS: Hyaline Casts/LPF 0-3 HYALINE CAST LPF (0-3 Hyaline); RBC/HPF 0-3 HPF (0-3); Yeast-All Forms None Seen HPF (None Seen)
[2018-05-03 09:11] LABS: Manual Microscopic Reviewed? No Path Casts Seen; Other Casts/LPF 0-3 COARSE GRAN LPF (0-3 Hyaline)
--- NOTE | 2018-05-03 09:54 | RAD ---
CHEST 1 VIEW: Date: 05/03/18 HISTORY: Emergency exam. Chest pain. COMPARISON: Radiograph from 2016. FINDINGS: Port catheter tip mid SVC in good position. No confluent air space consolidation, pneumothorax, or ef fusion. There appears to be barium in the colon. IMPRESSION: No acute intrathoracic abnormality. POS: [facility]
--- NOTE | 2018-05-03 10:38 | CT ---
CT ABDOMEN AND PELVIS WITH CONTRAST: Date: 05/03/18 HISTORY: Colon cancer. Colostomy. Cirrhosis. Abdominal pain and swelling. COMPARISON: CT abdomen and pelvis dated 03/03/18. FINDINGS: Mild atelectatic changes lung bases. No pericardial effusion. There is extensive hepatic metastatic disease involving approximately 50% of the hepatic parenchyma. There is large volume ascites. Large volume stool within the rectal vault. There is extensive omental thickening, progressed from th e prior examination, suggestive of omental caking and metastatic disease. Soft tissue nodule left rec tus abdominus muscle, which is similar, may reflect focal deposit versus scar formation. Aortic contour is nonaneurysmal. There are enlarged right pericardiophrenic lymph nodes, mildly enlar ged from the comparison examination. There is also left pericardiophrenic adenopathy. Right diaphragm atic lymph node is also enlarged. There is abnormal soft tissue thickening adjacent to the ostomy concerning for possible soft tissue m etastatic deposit around the ostomy site. There is some hyperenhancement of the right-sided peritonea l lining, concerning for metastatic disease. No hydronephrosis. Large right inferior pole cyst. IMPRESSION: 1. Interval increase in large volume ascites. 2. Progressive hepatic naman and intra-adominal metastatic disease. The previously described area of matted soft tissue abnormality now hemiabdomen now measures approximately 10.0 cm in AP dimension, p reviously approximately 8.0 cm. POS: [facility]
[2018-05-03] MEDS ORDERED: ISOVUE-370 76%-LOCM 1 ML ONE (16:48)
[2018-05-03] MEDS ORDERED: Iopamidol 370 76% 50 ML VIAL FS ONE (16:48)
== END 2018-05-03 10:30 | disposition home or self-care (01) ==
LOC: ERS 06:24
DX: R18.8 Other ascites (principal); C18.9 Malignant neoplasm of colon, unspecified; C78.7 Secondary malignant neoplasm of liver and intrahepatic bile duct; Z77.22 Contact with and (suspected) exposure to environmental tobacco smoke (acute) (chronic)
CPT/HCPCS: 71045; 74177; 80053; 81003; 81015; 83605; 83690; 85025; 93005; 96374; J2270

== ENCOUNTER 2018-05-25 17:42 | Inpatient (IN) | payer BC ==
[2018-05-25] MEDS ORDERED: traMADol HCl 50 MG TAB ONE (18:50)
[2018-05-25 19:41] LABS: #Monocytes 0.6 thou/uL (0.11-0.59); #Neutrophils 5.6 thou/uL (1.40-6.50); %Basophils 0.1 % (0.0-1.0); %Eosinophils 0.2 % (0.0-10.0); %Lymphocytes 13.3 % (21.0-51.0); %Monocytes 8.1 % (0.0-10.0); %Neutrophils 78.3 % (42.0-75.0); Hemoglobin 9.3 g/dL (14.0-18.0); Mean Corpuscular HGB CONC 32.6 g/dL (32.0-36.0); Mean Corpuscular Hemoglobin 25.4 pg (27.0-31.0); Mean Platelet Volume 8.1 fL (7.4-10.4); Platelet Count 379 thou/uL (130-400); RBC Distribution Width 19.4 % (11.5-14.5); Red Blood Cell (RBC) Count 3.67 mill/uL (4.70-6.10); White Blood Cell (WBC) Count 7.2 thou/uL (4.8-10.8)
[2018-05-25 20:00] LABS: ALT (SGPT) 12 U/L (8-55); AST (SGOT) 45 U/L (5-34); Albumin 3.7 g/dL (3.4-4.8); Alkaline Phosphatase 216 U/L (40-150); Anion Gap 21 mmol/L (10-20); BUN (Urea Nitrogen) 56 mg/dL (8.4-25.7); Bilirubin, Total 1.9 mg/dL (0.2-1.2); Calc. Creatinine Clearance 0 mL/min (70-130); Calcium 10.7 mg/dL (7.8-10.44); Carbon Dioxide 22 mmol/L (23-31); Chloride 90 mmol/L (98-107); Estimated GFR-MDRD 37; Globulin 5.7 g/dL (2.4-3.5); Glucose 143 mg/dL (80-115); Lipase 42 U/L (8-78); Potassium 5.1 mmol/L (3.5-5.1); Protein, Total 9.4 g/dL (5.8-8.1); Sodium 128 mmol/L (136-145)
[2018-05-25 20:04] LABS: CKMB 0.3 ng/mL (0-6.6); Troponin I Less than 0.010 ng/mL (< 0.028)
[2018-05-25 22:06] LABS: Bilirubin Moderate (Negative); Blood, Urine Trace (Negative); Clarity CLOUDY (Clear); Glucose, Urine (Dipstick) Negative (Negative); Leukocyte Moderate (Negative); Nitrite Negative (Negative); Protein, Urine (Dipstick) 30 mg/dL (Neg-Trace); Specific Gravity, Urine 1.019 (1.002-1.036)
[2018-05-25 22:08] LABS: Bacteria/HPF 4+ HPF (None Seen); Squamous Epithelial 0-3 HPF (0-3)
[2018-05-25 22:11] LABS: Pathc Cast-AUWi Flag 3.05 (0-2.49)
[2018-05-25 22:17] LABS: Hyaline Casts/LPF 7-10 HYALINE CAST LPF (0-3 Hyaline); RBC/HPF 0-3 HPF (0-3)
[2018-05-25 22:18] LABS: Other Casts/LPF 0-3 COARSE GRAN LPF (0-3 Hyaline)
[2018-05-25] MEDS ORDERED: cefTRIAXone\\ROCEPHIN 2 GM VIAL ONE (22:32)
--- NOTE | 2018-05-25 22:54 | CT ---
CT ABDOMEN AND PELVIS WITH CONTRAST: Comparison: 05-03-18 History: Abdominal pain and distention. Technique: Multiple contiguous axial images were obtained in a CT of the abdomen and pelvis with cont rast. Coronal reformats were performed. FINDINGS: Multiple scattered nodules are seen throughout the liver. There appears to be omental caking througho ut the abdomen. A moderate to large amount of ascites is seen. No free air is seen. There is an ostom y in the right lower quadrant of the abdomen. Contrast is seen in the rectum and left colon. The smal l bowel is normal in caliber without significant distention. Multiple small nodules scattered through out the omentum likely represent slightly enlarged omental lymph nodes. There is a large cyst in the left kidney. The right kidney, gallbladder, adrenal glands, spleen and pancreas are unremarkable, alt tyler evaluation is limited without IV contrast. Degenerative changes are seen in the spine. There is a small left pleural effusion with adjacent atel ectasis. IMPRESSION: 1. Multiple diffuse nodules scattered throughout the liver may be secondary to hepatic metastatic dis ease. 2. Omental caking and ascites likely represents spread of malignancy and malignant ascites. 3. Left renal cyst. POS: [facility]
[2018-05-26] MEDS ORDERED: Acetaminophen 325 MG TAB PO PRN (04:28)
[2018-05-26] MEDS ORDERED: Artificial Tears 18 DROP/0.9 ML EA EYE PRN (08:08)
[2018-05-26] MEDS ORDERED: Loperamide HCl 2 MG CAP PO PRN (08:08)
[2018-05-26] MEDS ORDERED: Ondansetron PF 4 MG/2 ML Vial IVP PRN (08:08)
[2018-05-26] MEDS ORDERED: Bisacodyl 10 MG SUPP PR PRN (08:08)
[2018-05-26] MEDS ORDERED: HYDROcodone/Acetaminophen 5/325 mg Tablet PO PRN (08:08)
[2018-05-26] MEDS ORDERED: Senokot S 8.6-50 MG TAB PO PRN (08:08)
[2018-05-26] MEDS ORDERED: hydrALAZINE 20 MG/ML VIAL SLOW IVP PRN (08:08)
[2018-05-26] MEDS ORDERED: Sodium Chloride 0.65% Nasal 44 ML BOT EA NARE PRN (08:08)
[2018-05-26] MEDS ORDERED: Bisacodyl 5 MG TAB PO PRN (08:08)
[2018-05-26] MEDS ORDERED: Zolpidem Tartrate 5 MG TAB PO PRN (08:08)
[2018-05-26] MEDS ORDERED: Ondansetron ODT 4 MG TAB PO PRN (08:08)
[2018-05-26] MEDS ORDERED: Diabetic Tussin 200 MG/10 ML UDCUP PO PRN (08:08)
[2018-05-26] MEDS ORDERED: Eucerin (Mineral Oil/Petrolatum,White) 30 gm Jar TOP PRN (08:08)
[2018-05-26] MEDS ORDERED: Cepastat Lozenges 1 LOZ PO PRN (08:08)
[2018-05-26 08:16] LABS: #Basophils 0.1 thou/uL (0.0-0.2); #Lymphocytes 0.9 thou/uL (1.20-3.40); #Monocytes 0.6 thou/uL (0.11-0.59); #Neutrophils 4.9 thou/uL (1.40-6.50); %Eosinophils 0.7 % (0.0-10.0); %Lymphocytes 13.7 % (21.0-51.0); %Monocytes 9.2 % (0.0-10.0); %Neutrophils 75.4 % (42.0-75.0); Hemoglobin 8.7 g/dL (14.0-18.0); Mean Corpuscular HGB CONC 31.2 g/dL (32.0-36.0); Mean Corpuscular Hemoglobin 24.7 pg (27.0-31.0); Mean Corpuscular Volume 79.1 fL (78.0-98.0); Mean Platelet Volume 8.2 fL (7.4-10.4); Platelet Count 335 thou/uL (130-400); RBC Distribution Width 19.5 % (11.5-14.5); Red Blood Cell (RBC) Count 3.52 mill/uL (4.70-6.10); White Blood Cell (WBC) Count 6.4 thou/uL (4.8-10.8)
[2018-05-26 08:44] LABS: Anisocytosis SLIGHT = 6-15 cells (100X) (0-5/hpf); PLT Morphology Comment Appears Adequate; Poikilocytosis SLIGHT = 6-15 cells (100X) (0-5/hpf); Target Cells SLIGHT = 2-5 cells (100X) (0-1/hpf)
[2018-05-26] MEDS ORDERED: Famotidine/PF 20 mg/2ml Vial SLOW IVP SCH (09:00)
[2018-05-26] MEDS ORDERED: Famotidine 20 MG TAB ONE (09:04)
[2018-05-26] MEDS ORDERED: Heparin 1,000 UNITS/ML VIAL ONE (09:05)
[2018-05-26] MEDS: Famotidine 20 MG TAB PO SCH (10:55)
[2018-05-26] MEDS: Heparin 5,000 UNITS/ML VIAL SC SCH ×2 (10:55→21:00)
[2018-05-26] MEDS: Sodium Chloride 0.9% 1,000 ML IV SCH ×2 (10:55→21:06)
[2018-05-26 11:43] VITALS: BMI 19.5
--- NOTE | 2018-05-26 13:27 | HP ---
PRIMARY CARE PHYSICIAN: Dr. Olivares. REASON FOR ADMISSION: Acute kidney failure and urinary tract infection. HISTORY OF PRESENT ILLNESS: A 62-year-old male, who has underlying history of metastatic colorectal carcinoma, who was at one point in hospice and then he started getting oral chemotherapy from Oncology. He lives at home. He has chronic abdominal pain and this time, he presented to emergency room with increasing abdominal pain and mild abdominal distention. He was also having constipation. His appetite is very poor. He is losing significant amount of weight. He is very weak. He is not getting around by himself at home and he requires lot of assistance at home as well. The patient reports that his oncologist started giving him oral chemotherapeutic pill. The patient wants to be a DNR per his request. At this time, he denies any fever or chills. He denies any melena or hematochezia. He denies any nausea or vomiting. REVIEW OF SYSTEMS: CONSTITUTIONAL: Negative for weight loss or gain, ability to conduct usual activities. SKIN: Negative for rash, itching. EYES: Negative for double vision, pain. ENT/MOUTH: Negative for nose bleeding, neck stiffness, pain, tenderness. CARDIOVASCULAR: Negative for palpitations, dyspnea on exertion, orthopnea. RESPIRATORY: Negative for shortness of breath, wheezing, cough, hemoptysis, fever or night sweats. GASTROINTESTINAL: Negative for poor appetite, abdominal pain, heartburn, nausea, vomiting, constipation, or diarrhea. GENITOURINARY: Negative for urgency, frequency, dysuria, nocturia. MUSCULOSKELETAL: Negative for pain, swelling. NEUROLOGIC/PSYCHIATRIC: Negative for anxiety, depression. ALLERGY/IMMUNOLOGIC: Negative for skin rash, bleeding tendency. Please see my HPI for pertinent positive and negative. All other review of systems reviewed and negative except as mentioned in HPI. EMERGENCY ROOM COURSE: The patient is given IV fluid, Rocephin 2 g, and tramadol 50 mg. PAST MEDICAL HISTORY: Metastatic colorectal cancer and history of pulmonary embolism. PAST SURGICAL HISTORY: Appendicectomy, colectomy and colostomy placement. PAST PSYCHIATRIC HISTORY: Reviewed and negative. SOCIAL HISTORY: The patient is , lives at home with his family. He is former smoker. He quit smoking more than 10 years ago. He denies any alcohol abuse. He denies any other illicit drug abuse. FAMILY HISTORY: No family history of coronary artery disease, stroke, or cancer. CURRENT HOME MEDICATION: The patient is not on any specific medication at this point other than [place] p.r.n., this is for pain. ALLERGIES: HYDROXYZINE. PHYSICAL EXAMINATION: VITAL SIGNS: Currently blood pressure 110/79, pulse 108, respiratory rate 18, temperature 97.6, and saturation 98% on room air. Weight 72.6 kg. GENERAL: The patient is currently cachetic. No obvious acute distress. HEAD: Normocephalic, atraumatic. Eyes, pupils round, reactive to light. Extraocular muscles are intact. No nystagmus. ENT: Dry mucous membranes. No oral lesion. No pharyngeal erythema. No exudate. NECK: Supple. No JVD. No thyromegaly. No carotid bruit. LUNGS: Clear to auscultation without any rhonchi or rales. CARDIAC: S1 and S2, regular. No murmur elicited. No gallop. No rub. ABDOMEN: Abdominal distention noted. Colostomy in place. UPPER EXTREMITY: Passive movement of all joints is normal. LOWER EXTREMITY: No edema. Good distal pulsation. SKIN: No skin rash. HEMATOLOGIC: No lymphadenopathy. PSYCHIATRIC: Normal affect. NEUROLOGIC: Nonfocal examination. SIGNIFICANT LABORATORY DATA: EKG showing sinus tachycardia. CT of the abdomen and pelvis showing multiple diffuse nodule throughout the liver consistent with metastatic disease, omental thickening and ascites consistent with peritoneal carcinomatosis, left renal cyst. CBC: WBC 6.4, hemoglobin 8.7, platelet 335. BMP: Sodium 128, potassium 5.1, chloride 90, carbon dioxide 22, anion gap 21, BUN 56, creatinine 2.16, glucose 143, calcium 10.7. LFT: AST 45, ALT 12, alkaline phosphatase 216, albumin 3.7, lipase 42. CK-MB 0.3, troponin I less than 0.010. Urinalysis suggestive of urinary tract infection. ASSESSMENT AND PLAN: 1. Acute kidney failure with creatinine 2.16, due to prerenal etiology secondary to dehydration and volume depletion. The patient will be given IV fluid. We will monitor renal function. Nephrology consulted. We are expecting that with IV fluid hydration, his renal function will improve. 2. Urinary tract infection due to gram-negative chica. Follow up on culture results. Start Rocephin 2 g IV daily. Based on culture result, we will change antibiotic therapy accordingly. 3. Hyponatremia and hypochloremia, likely due to underlying volume depletion. The patient is getting NS IV fluid at 100 mL/hr and will repeat BMP tomorrow. 4. Mild anion gap acidosis, likely due to volume depletion and renal failure. We will repeat BMP tomorrow. 5. Anemia of chronic disease. We will repeat CBC tomorrow and continue multivitamin therapy, ferrous sulfate 325 mg p.o. daily. 6. Cancer cachexia. Prognosis is very poor. Palliative care will be consulted. 7. Metastatic colorectal cancer. The patient is on palliative chemotherapy, which he has not started yet. Prognosis is extremely poor. 8. Severe protein-calorie malnutrition. The patient will be given nutritional supplement with Ensure t.i.d. 9. 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 His pain will be controlled with fentanyl on p.r.n. basis. 10. Deep vein thrombosis prophylaxis. Heparin 5,000 units subcu twice daily. 11. Gastrointestinal prophylaxis, Pepcid 20 mg p.o. daily. 12. History of pulmonary embolism. The patient is not a candidate for any chronic anticoagulation therapy at this point other than prophylactic therapy for prevention. DISPOSITION: Disposition plan based on clinical course. We are expecting the patient to stay in hospital more than two midnights. PLAN: Plan of care discussed with the patient's and himself in detail. CODE STATUS: I spoke with the patient as well as his and he expressed his wish to be a DNR. Job ID: [id number]
[2018-05-26] MEDS: Fentanyl 100 MCG/2 ML VIAL SLOW IVP PRN (18:11)
[2018-05-26] MEDS: cefTRIAXone\\ROCEPHIN 2 GM in Sodium Chloride 0.9% 100 ML IVPB SCH (22:00)
[2018-05-27] MEDS: Fentanyl 100 MCG/2 ML VIAL SLOW IVP PRN ×7 (04:00→22:35)
[2018-05-27] MEDS ORDERED: HYDROcodone/Acetaminophen 10/325 mg Tablet PO PRN (07:01)
[2018-05-27 07:28] LABS: #Lymphocytes 0.6 thou/uL (1.20-3.40); #Monocytes 0.5 thou/uL (0.11-0.59); #Neutrophils 5.1 thou/uL (1.40-6.50); %Eosinophils 0.3 % (0.0-10.0); %Lymphocytes 10.2 % (21.0-51.0); %Monocytes 8.4 % (0.0-10.0); %Neutrophils 81.1 % (42.0-75.0); Hemoglobin 8.3 g/dL (14.0-18.0); Mean Corpuscular HGB CONC 29.9 g/dL (32.0-36.0); Mean Corpuscular Hemoglobin 23.7 pg (27.0-31.0); Mean Corpuscular Volume 79.2 fL (78.0-98.0); Mean Platelet Volume 8.5 fL (7.4-10.4); Platelet Count 305 thou/uL (130-400); RBC Distribution Width 19.3 % (11.5-14.5); White Blood Cell (WBC) Count 6.2 thou/uL (4.8-10.8)
[2018-05-27] MEDS: Sodium Chloride 0.9% 1,000 ML IV SCH ×2 (07:30→16:31)
[2018-05-27 07:31] LABS: ALT (SGPT) 14 U/L (8-55); AST (SGOT) 59 U/L (5-34); Albumin 3.1 g/dL (3.4-4.8); Alkaline Phosphatase 186 U/L (40-150); Anion Gap 16 mmol/L (10-20); BUN (Urea Nitrogen) 45 mg/dL (8.4-25.7); Bilirubin, Total 1.2 mg/dL (0.2-1.2); Calc. Creatinine Clearance 45 mL/min (70-130); Calcium 9.8 mg/dL (7.8-10.44); Carbon Dioxide 23 mmol/L (23-31); Chloride 98 mmol/L (98-107); Estimated GFR-MDRD 53; Globulin 4.8 g/dL (2.4-3.5); Glucose 74 mg/dL (80-115); Potassium 4.5 mmol/L (3.5-5.1); Protein, Total 7.9 g/dL (5.8-8.1); Sodium 132 mmol/L (136-145)
--- NOTE | 2018-05-27 08:58 | CON ---
DATE OF CONSULTATION: 05/26/2018 TYPE OF CONSULTATION: Nephrology CONSULTING PHYSICIAN: Dr. Franks. REASON FOR CONSULTATION: Acute kidney injury. REASON FOR ADMISSION: Abdominal pain and weakness. HISTORY OF PRESENT ILLNESS: This is a 62-year-old male with a history of colon cancer, blood clot, came to the hospital with abdominal pain with poor p.o. intake. He is found to have elevated creatinine. Nephrology is consulted. The patient denies any fever or chills. No chest pain. No shortness of breath. PAST MEDICAL HISTORY: Positive for colon cancer. PAST SURGICAL HISTORY: 1. Colectomy. 2. Appendectomy. HOME MEDICATIONS: [place]. ALLERGIES: NO KNOWN DRUG ALLERGIES. SOCIAL HISTORY: No smoking, alcohol, or illicit drug use. FAMILY HISTORY: No history of any kidney disease. REVIEW OF SYSTEMS: CONSTITUTIONAL: Negative for weight loss or gain, ability to conduct usual activities. SKIN: Negative for rash, itching. EYES: Negative for double vision, pain. ENT/MOUTH: Negative for nose bleeding, neck stiffness, pain, tenderness. CARDIOVASCULAR: Negative for palpitations, dyspnea on exertion, orthopnea. RESPIRATORY: Negative for shortness of breath, wheezing, cough, hemoptysis, fever or night sweats. GASTROINTESTINAL: Negative for poor appetite, abdominal pain, heartburn, nausea, vomiting, constipation, or diarrhea. GENITOURINARY: Negative for urgency, frequency, dysuria, nocturia. MUSCULOSKELETAL: Negative for pain, swelling. NEUROLOGIC/PSYCHIATRIC: Negative for anxiety, depression. ALLERGY/IMMUNOLOGIC: Negative for skin rash, bleeding tendency. PHYSICAL EXAMINATION: GENERAL: Reveals cachetic looking male, in no apparent distress. VITAL SIGNS: Temperature 97.3, pulse 120, respiratory rate 18, blood pressure 102/77. HEENT: Atraumatic and normocephalic. Oral mucosa is moist. NECK: Supple. CARDIOVASCULAR: S1, S2. Rate and rhythm regular. RESPIRATORY: Clear. GASTROINTESTINAL: Abdomen is soft. MUSCULOSKELETAL: No edema. DERMATOLOGIC: . LABORATORY DATA: Hemoglobin is 8.7. Potassium is 5.1, BUN is 56, creatinine is 2.1, sodium is 128. ASSESSMENT AND PLAN: 1. Acute kidney injury, most likely from volume depletion. Agree with hydration. 2. Hyponatremia, continue IV fluids. 3. Metabolic acidosis with some mild hyperkalemia. 4. Anemia, most likely chronic. 5. History of colon cancer. 6. Hypercalcemia. 7. Continue IV fluids and monitor labs. 8. Avoid nephrotoxin. Thank you for the consult. Job ID: [id number]
[2018-05-27] MEDS: Ferrous Sulfate 325 MG TAB PO SCH (10:25)
[2018-05-27] MEDS: Famotidine 20 MG TAB PO SCH (10:25)
[2018-05-27] MEDS: Folic Acid 1 MG TAB PO SCH (10:25)
[2018-05-27] MEDS: Heparin 5,000 UNITS/ML VIAL SC SCH ×2 (10:26→20:47)
[2018-05-27] MEDS: Cyanocobalamin (Vitamin B-12) 1,000 MCG TAB PO SCH (10:26)
--- NOTE | 2018-05-27 11:27 | PDOC.PN ---
- Subjective Encounter Start Date: 05/27/18 Encounter Start Time: 07:10 -: old records requested/rev Patient seen and examined. No new complaints. No overnight events - Objective Resuscitation Status - Order Detail: 05/26/18 10:33 Resuscitation Status Routine Resuscitation Status: DNAR: NO Resuscitation Discussed with: pt and his ANTONIO Reviewed: Yes Vital Signs & Weight: Vital Signs (12 hours) Temp Pulse Resp BP Pulse Ox 05/27/18 07:45 97.9 F 101 H 22 H 98/67 95 05/27/18 05:30 97.9 F 146 H 16 99/67 95 05/27/18 00:13 98.2 F 104 H 16 94/68 97 Weight Weight 148 lb I&O: 05/26/18 05/27/18 05/28/18 06:59 06:59 06:59 Intake Total 1300 Output Total 700 Balance 600 Result Diagrams: 05/27/18 06:21 05/27/18 06:21 Phys Exam - Physical Examination Constitutional: NAD HEENT: PERRLA, moist MMs, sclera anicteric Neck: no JVD, supple Respiratory: no wheezing, no rales, no rhonchi Cardiovascular: RRR, no significant murmur, no rub Gastrointestinal: soft, positive bowel sounds ascites+ Musculoskeletal: no edema, pulses present Neurological: non-focal, normal sensation Lymphatic: no nodes Psychiatric: normal affect Skin: no rash, normal turgor Dx/Plan (1) Acute kidney failure Status: Acute (2) Hyponatremia Code(s): E87.1 - HYPO-OSMOLALITY AND HYPONATREMIA Status: Acute (3) UTI (urinary tract infection) Status: Acute (4) Anemia of chronic disease Code(s): D63.8 - ANEMIA IN OTHER CHRONIC DISEASES CLASSIFIED ELSEWHERE Status : Chronic (5) History of pulmonary embolus (PE) Code(s): Z86.711 - PERSONAL HISTORY OF PULMONARY EMBOLISM Status: Chronic Comment: Leela purvis. (6) Malignant cachexia Code(s): R64 - [place]HEX[place] Status: Chronic (7) Metastatic colorectal cancer Code(s): C78.5 - SECONDARY MALIGNANT NEOPLASM OF LARGE INTESTINE AND RECTUM Status: Chronic (8) Severe protein-calorie malnutrition Code(s): E43 - UNSPECIFIED SEVERE PROTEIN-CALORIE MALNUTRITION Status: Chronic - Plan cont current plan of care * continue rocephin * continue IVF. * medication reviewed as below * symptomatic treatment * pain control * discussed with Review of Systems - Review of Systems Eyes: negative: Pain, Vision Change, Conjunctivae Inflammation, Eyelid Inflammation, Redness, Other ENT: negative: Ear Pain, Ear Discharge, Nose Pain, Nose Discharge, Nose Congestion, Mouth Pain, Mouth Swelling, Throat Pain, Throat Swelling, Other Respiratory: negative: Cough, Dry, Shortness of Breath, Hemoptysis, SOB with Excertion, Pleuritic Pain, Sputum, Wheezing Cardiovascular: negative: chest pain, palpitations, orthopnea, paroxysmal nocturnal dyspnea, edema, light headedness, other Gastrointestinal: Abdominal Pain. negative: Nausea, Vomiting, Diarrhea, Constipation, Melena, Hematochezia, Other Genitourinary: negative: Dysuria, Frequency, Incontinence, Hematuria, Retention , Other Musculoskeletal: negative: Neck Pain, Shoulder Pain, Arm Pain, Back Pain, Hand Pain, Leg Pain, Foot Pain, Other Skin: negative: Rash, Lesions, Reynold, Bruising, Other - Medications/Allergies Allergies/Adverse Reactions: Allergies Allergy/AdvReac Type Severity Reaction Status Date / Time hydroxyzine Allergy Verified 05/26/18 12:15 Medications: Current Medications Acetaminophen (Tylenol) 650 mg PO Q4H PRN PRN Reason: Headache/Fever/Mild Pain (1-3) Hydrocodone Bitart/Acetaminophen ([place] 10/325) 1 tab PO Q4H PRN PRN Reason: Pain Artificial Tears (Tears Naturale) 2 drop EA EYE PRN PRN PRN Reason: Dry Eyes Bisacodyl (Dulcolax) 10 mg PO DAILYPRN PRN PRN Reason: Constipation Bisacodyl (Dulcolax) 10 mg LA DAILYPRN PRN PRN Reason: Constipation Cyanocobalamin (Vitamin B-12) 1,000 mcg PO DAILY [facility] Last Admin: 05/27/18 10:26 Dose: 1,000 mcg Famotidine (Pepcid) 20 mg PO DAILY [facility] Last Admin: 05/27/18 10:25 Dose: 20 mg Fentanyl (Sublimaze) 25 mcg SLOW IVP Q2H PRN PRN Reason: Pain Last Admin: 05/27/18 10:20 Dose: 25 mcg Ferrous Sulfate (Feosol) 325 mg PO [facility] Last Admin: 12/04/18 10:25 Dose: 325 mg Folic Acid (Folvite) 1 mg PO DAILY [facility] Last Admin: 05/27/18 10:25 Dose: 1 mg Guaifenesin (Robitussin Sf) 200 mg PO Q4H PRN PRN Reason: Cough Heparin Sodium (Porcine) (Heparin) 5,000 units SC BID [facility] Last Admin: 05/27/18 10:26 Dose: 5,000 units Hydralazine HCl (Apresoline) 10 mg SLOW IVP Q4H PRN PRN Reason: SBP > 180 and HR < 70 Sodium Chloride (Normal Saline 0.9%) 1,000 mls @ 100 mls/hr IV .Q10H [facility] Last Admin: 05/27/18 07:30 Dose: 1,000 mls Ceftriaxone Sodium 2 gm/ (Sodium Chloride) 100 mls @ 200 mls/hr IVPB Q24HR@ 2200 [facility] Last Admin: 05/26/18 22:00 Dose: 100 mls Loperamide HCl (Imodium) 2 mg PO PRN PRN PRN Reason: Diarrhea/Loose Stools Mineral Oil/White Petrolatum (Eucerin Cream) 0 gm TOP BIDPRN PRN PRN Reason: Dry Skin Ondansetron HCl (Zofran Odt) 4 mg PO Q6H PRN PRN Reason: Nausea/Vomiting Ondansetron HCl (Zofran) 4 mg IVP Q6H PRN PRN Reason: Nausea/Vomiting Senna/Docusate Sodium (Senokot S) 2 tab PO BID PRN PRN Reason: Constipation Sodium Chloride (Flush - Normal Saline) 10 ml IVF Q12HR [facility] Last Admin: 05/27/18 10:30 Dose: Not Given Sodium Chloride (Flush - Normal Saline) 10 ml IVF PRN PRN PRN Reason: Saline Flush Sodium Chloride ([place] Nasal [place] 0.65%) 0 ml EA NARE QIDPRN PRN PRN Reason: Nasal Congestion Throat Lozenges (Cepastat Lozenges) 1 jocy PO Q2H PRN PRN Reason: Sore Throat Zolpidem Tartrate (Ambien) 5 mg PO HSPRN PRN PRN Reason: Insomnia
--- NOTE | 2018-05-27 12:53 | PRG ---
DATE OF SERVICE: 05/27/2018 SUBJECTIVE: A 62-year-old male being seen for acute kidney injury. The patient denies any nausea, vomiting, or chest pain. OBJECTIVE: GENERAL: The patient is awake, alert. VITAL SIGNS: Afebrile. Pulse 101, breathing 16, and blood pressure . GENERAL APPEARANCE AND MENTAL STATUS: Fair. HEAD/NECK: Normocephalic. Atraumatic. EYES: EOMI. No deformity. EARS: Clear. No ulcers. NOSE: Intact. No lesions. MOUTH: Clear. No discharge. THROAT: Clear. No exudate. LUNGS: Clear. No crackles. CARDIAC: S1, S2. No rub. ABDOMEN: Benign. Bowel sounds positive. GENITALIA/RECTUM: Trevino absent. BACK/EXTREMITIES: Edema 0+. NEUROLOGICAL: Alert and motor intact. LABORATORY DATA: Hemoglobin 8.3. Creatinine 1.5. ASSESSMENT: 1. Acute kidney injury, improved. 2. Hyperkalemia, improved. 3. Hyponatremia, improved. 4. No indication for dialysis. We will follow renal function. Job ID: [id number]
[2018-05-27] MEDS: cefTRIAXone\\ROCEPHIN 2 GM in Sodium Chloride 0.9% 100 ML IVPB SCH (21:35)
[2018-05-28] MEDS: Fentanyl 100 MCG/2 ML VIAL SLOW IVP PRN ×4 (01:05→11:36)
[2018-05-28] MEDS: Sodium Chloride 0.9% 1,000 ML IV SCH ×2 (04:29→13:00)
[2018-05-28] MEDS: Heparin 5,000 UNITS/ML VIAL SC SCH (09:12)
[2018-05-28] MEDS: Famotidine 20 MG TAB PO SCH (09:13)
[2018-05-28] MEDS: Cyanocobalamin (Vitamin B-12) 1,000 MCG TAB PO SCH (09:13)
[2018-05-28] MEDS: Ferrous Sulfate 325 MG TAB PO SCH (09:13)
[2018-05-28] MEDS: Folic Acid 1 MG TAB PO SCH (09:14)
--- NOTE | 2018-05-28 09:33 | PDOC.PN ---
- Subjective Encounter Start Date: 05/28/18 Encounter Start Time: 07:05 Patient seen and examined. No new complaints. No overnight events - Objective Resuscitation Status - Order Detail: 05/26/18 10:33 Resuscitation Status Routine Resuscitation Status: DNAR: NO Resuscitation Discussed with: pt and his ANTONIO Reviewed: Yes Vital Signs & Weight: Vital Signs (12 hours) Temp Pulse Resp BP Pulse Ox 05/28/18 07:36 97.4 F L 93 16 105/74 100 05/27/18 23:47 97.9 F 98 16 99/65 99 Weight Admit Weight 148 lb Weight 148 lb I&O: 05/27/18 05/28/18 05/29/18 06:59 06:59 06:59 Intake Total 1300 3800 Output Total 700 500 Balance 600 3300 Result Diagrams: 05/27/18 06:21 05/27/18 06:21 Phys Exam - Physical Examination Constitutional: NAD HEENT: PERRLA, moist MMs, sclera anicteric Neck: no JVD, supple Respiratory: no wheezing, no rales, no rhonchi Cardiovascular: RRR, no significant murmur, no rub Gastrointestinal: soft, positive bowel sounds ascites+, Musculoskeletal: no edema, pulses present Neurological: non-focal, normal sensation, moves all 4 limbs Lymphatic: no nodes Psychiatric: normal affect, A&O x 3 Skin: no rash, normal turgor Dx/Plan (1) Acute kidney failure Status: Acute (2) Hyponatremia Code(s): E87.1 - HYPO-OSMOLALITY AND HYPONATREMIA Status: Acute (3) UTI (urinary tract infection) Status: Acute (4) Anemia of chronic disease Code(s): D63.8 - ANEMIA IN OTHER CHRONIC DISEASES CLASSIFIED ELSEWHERE Status : Chronic (5) History of pulmonary embolus (PE) Code(s): Z86.711 - PERSONAL HISTORY OF PULMONARY EMBOLISM Status: Chronic Comment: Leela purvis. 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 Review of Systems - Review of Systems ENT: negative: Ear Pain, Ear Discharge, Nose Pain, Nose Discharge, Nose Congestion, Mouth Pain, Mouth Swelling, Throat Pain, Throat Swelling, Other Respiratory: negative: Cough, Dry, Shortness of Breath, Hemoptysis, SOB with Excertion, Pleuritic Pain, Sputum, Wheezing Cardiovascular: negative: chest pain, palpitations, orthopnea, paroxysmal nocturnal dyspnea, edema, light headedness, other Gastrointestinal: Abdominal Pain. negative: Nausea, Vomiting, Diarrhea, Constipation, Melena, Hematochezia, Other Genitourinary: negative: Dysuria, Frequency, Incontinence, Hematuria, Retention , Other Musculoskeletal: negative: Neck Pain, Shoulder Pain, Arm Pain, Back Pain, Hand Pain, Leg Pain, Foot Pain, Other - Medications/Allergies Allergies/Adverse Reactions: Allergies Allergy/AdvReac Type Severity Reaction Status Date / Time hydroxyzine Allergy Verified 05/26/18 12:15 Medications: Current Medications Acetaminophen (Tylenol) 650 mg PO Q4H PRN PRN Reason: Headache/Fever/Mild Pain (1-3) Hydrocodone Bitart/Acetaminophen ([place] 10/325) 1 tab PO Q4H PRN PRN Reason: Pain Artificial Tears (Tears Naturale) 2 drop EA EYE PRN PRN PRN Reason: Dry Eyes Bisacodyl (Dulcolax) 10 mg PO DAILYPRN PRN PRN Reason: Constipation Bisacodyl (Dulcolax) 10 mg ME DAILYPRN PRN PRN Reason: Constipation Cyanocobalamin (Vitamin B-12) 1,000 mcg PO DAILY [facility] Last Admin: 05/28/18 09:13 Dose: 1,000 mcg Diltiazem HCl (Cardizem) 60 mg PO TID [facility] Last Admin: 05/28/18 09:12 Dose: 60 mg Famotidine (Pepcid) 20 mg PO DAILY [facility] Last Admin: 05/28/18 09:13 Dose: 20 mg Fentanyl (Sublimaze) 25 mcg SLOW IVP Q2H PRN PRN Reason: Pain Last Admin: 05/28/18 09:14 Dose: 25 mcg Ferrous Sulfate (Feosol) 325 mg PO QA-[facility] Last Admin: 05/28/18 09:13 Dose: 325 mg Folic Acid (Folvite) 1 mg PO DAILY [facility] Last Admin: 05/28/18 09:14 Dose: 1 mg Guaifenesin (Robitussin Sf) 200 mg PO Q4H PRN PRN Reason: Cough Heparin Sodium (Porcine) (Heparin) 5,000 units SC BID [facility] Last Admin: 05/28/18 09:12 Dose: Not Given Hydralazine HCl (Apresoline) 10 mg SLOW IVP Q4H PRN PRN Reason: SBP > 180 and HR < 70 Sodium Chloride (Normal Saline 0.9%) 1,000 mls @ 100 mls/hr IV .Q10H [facility] Last Admin: 05/28/18 04:29 Dose: 1,000 mls Ceftriaxone Sodium 2 gm/ (Sodium Chloride) 100 mls @ 200 mls/hr IVPB Q24HR@ 2200 [facility] Last Admin: 05/27/18 21:35 Dose: 100 mls Loperamide HCl (Imodium) 2 mg PO PRN PRN PRN Reason: Diarrhea/Loose Stools Mineral Oil/White Petrolatum (Eucerin Cream) 0 gm TOP BIDPRN PRN PRN Reason: Dry Skin Ondansetron HCl (Zofran Odt) 4 mg PO Q6H PRN PRN Reason: Nausea/Vomiting Ondansetron HCl (Zofran) 4 mg IVP Q6H PRN PRN Reason: Nausea/Vomiting Senna/Docusate Sodium (Senokot S) 2 tab PO BID PRN PRN Reason: Constipation Sodium Chloride (Flush - Normal Saline) 10 ml IVF Q12HR [facility] Last Admin: 05/27/18 20:48 Dose: Not Given Sodium Chloride (Flush - Normal Saline) 10 ml IVF PRN PRN PRN Reason: Saline Flush Sodium Chloride ([place]agher Nasal [place] 0.65%) 0 ml EA NARE QIDPRN PRN PRN Reason: Nasal Congestion Throat Lozenges (Cepastat Lozenges) 1 jocy PO Q2H PRN PRN Reason: Sore Throat Zolpidem Tartrate (Ambien) 5 mg PO HSPRN PRN PRN Reason: Insomnia
--- NOTE | 2018-05-28 11:01 | DIS ---
DATE OF ADMISSION: 05/25/2018 DATE OF DISCHARGE: 05/28/2018 PRIMARY CARE PHYSICIAN: Dr. Olivares. DISCHARGE DISPOSITION: Home with home hospice. PRIMARY DISCHARGE DIAGNOSES: 1. Acute kidney failure. 2. Urinary tract infection. 3. Hyponatremia. SECONDARY DISCHARGE DIAGNOSES: 1. Severe protein-calorie malnutrition. 2. Metastatic colorectal cancer. 3. Malignant cachexia. 4. History of pulmonary embolism. 5. Anemia of chronic disease. PRIMARY PROCEDURE/OPERATION: None. RADIOLOGICAL INVESTIGATION: Abdomen and pelvis CT scan showed peritoneal carcinomatosis. LABORATORY DATA: Significant labs: WBC 6.2, hemoglobin 8.3, and platelets 305. Sodium 132, potassium 4.5, BUN 45, creatinine 1.59, and calcium 9.8. Urinalysis suggestive of UTI. Urine culture grew Klebsiella. DISCHARGE MEDICATIONS: 1. [place] 10 one tablet q.4 hourly p.r.n. 2. Cipro 500 mg p.o. b.i.d. 3. Vitamin B12 of 1000 mcg p.o. daily. 4. Ferrous sulfate 325 mg p.o. daily. 5. Folic acid 1 mg p.o. daily. 6. Protonix 40 mg p.o. daily. CONTRAINDICATION: None. CODE STATUS: DNR. INPATIENT CORONER TECHNICIAN: Dr. Solo. TEST RESULT PENDING ON DISCHARGE: None. ALLERGIES: HYDROXYZINE. DISCHARGE PLAN: Posthospital, the patient was discharged to home with home hospice. Subsequently, the patient will follow up with primary care physician as needed. HOSPITAL COURSE: A 62-year-old male, who was admitted by me. Please see my HPI for further details. The patient was having very poor appetite. He was found with the volume depletion and he had acute kidney failure. He was also having UTI symptoms and he was complaining of abdominal pain, and that is why in the emergency room, the patient had CT abdomen and pelvis, which showed peritoneal carcinomatosis with ascites. The patient was admitted to Medical Oncology floor, where we treated him with IV fluids and empiric antibiotic therapy. With this, his renal function improved towards baseline and his urine culture grew Klebsiella, and based on culture result, we changed to Cipro upon discharge. The patient accepted hospice option and that is why he will go home with home hospice once arranged. The patient is seen and examined at bedside today. Please see my progress note from today for further detail. Job ID: [id number]
--- NOTE | 2018-05-28 11:05 | PRG ---
DATE OF SERVICE: 05/28/2018 SUBJECTIVE: A 62-year-old gentleman being seen for acute kidney injury. The patient denies any nausea, vomiting, or chest pain. OBJECTIVE: GENERAL: The patient is awake, alert, in no acute distress. VITAL SIGNS: Pulse 93, breathing 16, and blood pressure 105/74. GENERAL APPEARANCE AND MENTAL STATUS: Fair. HEAD/NECK: Normocephalic. Atraumatic. EYES: EOMI. No deformity. EARS: Clear. No ulcers. NOSE: Intact. No lesions. MOUTH: Clear. No discharge. THROAT: Clear. No exudate. LUNGS: Clear. No crackles. CARDIAC: S1, S2. No rub. ABDOMEN: Benign. Bowel sounds positive. GENITALIA/RECTUM: Trevino absent. BACK/EXTREMITIES: Edema 0+. NEUROLOGICAL: Alert and motor intact. LABORATORY DATA: Labs show hemoglobin 8.3, creatinine is pending. ASSESSMENT: 1. Acute kidney injury with chronic kidney disease, improved. 2. HTN stable. 3. Anemia Job ID: [id number] [facility]
[2018-05-28 11:22] VITALS: BP 109/75; TEMP 97.7
--- NOTE | 2018-05-31 12:44 | EKG ---
Test Reason : Blood Pressure : / mmHG Vent. Rate : 120 BPM Atrial Rate : 120 BPM P-R Int : 126 ms QRS Dur : 086 ms QT Int : 318 ms P-R-T Axes : 063 059 066 degrees QTc Int : 449 ms Sinus tachycardia with Fusion complexes Otherwise normal ECG Confirmed by MIKE STUBBS ([id number]), editor farm journal BRAULIO REVELES ([id number]) on 05/31/2018 12:44:09 PM Referred By: Confirmed By:MIKE STUBBS
== END 2018-05-28 13:10 | disposition hospice, home (50) | DRG 682 ==
LOC: ERS 17:42 → ERHOLD 23:42 → ONC 05-26 09:52
PROVIDERS: ADMIT Internal Medicine; ATTEND Internal Medicine
DX: N17.9 Acute kidney failure, unspecified (principal); E43 Unspecified severe protein-calorie malnutrition; I26.99 Other pulmonary embolism without acute cor pulmonale; N39.0 Urinary tract infection, site not specified; E87.1 Hypo-osmolality and hyponatremia; E87.2 Acidosis; R64 Cachexia; C78.5 Secondary malignant neoplasm of large intestine and rectum; Z68.1 Body mass index [BMI] 19.9 or less, adult; D63.8 Anemia in other chronic diseases classified elsewhere; Z92.21 Personal history of antineoplastic chemotherapy; K59.00 Constipation, unspecified; Z66 Do not resuscitate; Z87.891 Personal history of nicotine dependence; Z88.8 Allergy status to other drugs, medicaments and biological substances; E87.8 Other disorders of electrolyte and fluid balance, not elsewhere classified; I10 Essential (primary) hypertension; J45.909 Unspecified asthma, uncomplicated; E87.5 Hyperkalemia; B96.1 Klebsiella pneumoniae [K. pneumoniae] as the cause of diseases classified elsewhere
CPT/HCPCS: 36415; 74176; 80053; 81003; 81015; 82553; 83690; 84484; 85025; 87077; 87086; 87186; 93005; 96361; 96365; G8978-GP-CK; G8979-GP-CI; G8987-GO-CK; G8988-GO-CI; J0696; J1644; J3010; J7050